=== PATIENT | male | born 1955 | race Caucasian/White ===

== ENCOUNTER 2018-03-21 07:13 | Day surgery (SDC) | payer BC ==
[2018-03-20 17:23] LABS: Absolute Lymphocytes (CBC) 1.5 K/uL (0.7-4.9); Absolute Monocytes 0.6 K/uL (0.1-1.3); Absolute Neutrophil 5.7 K/uL (1.8-8.0); Basophils % 0.9 % (0-1.3); Eosinophils % 3.5 % (0-4.4); Lymphocytes % 18.5 % (15.3-44.8); MCH 30.8 pg (27.0-35.0); MCV 90.9 fL (80-100); MPV 8.8 fL (7.6-11.3); Monocytes % 7.8 % (3.3-12.3); RBC Red Blood Cell Count 4.73 M/uL (4.33-5.43)
[2018-03-20 17:40] LABS: Potassium 3.7 mmol/L (3.5-5.1)
--- NOTE | 2018-03-20 17:56 | EKG ---
Test Date: 2018-03-20 Test Time: 16:57:07 Automobile Engine Assembler: ESTEPHANIA MEASUREMENT RESULTS: Intervals: Rate: 67 WI: 160 QRSD: 100 QT: 420 QTc: 443 [place]: P: 35 WI: 160 QRS: -12 T: 42 INTERPRETIVE STATEMENTS: Normal sinus rhythm Nonspecific T wave abnormality Abnormal ECG Compared to ECG 08/04/2016 15:36:12 T-wave abnormality now present ST (T wave) deviation no longer present Electronically Signed On 03-20-18 17:56:28 CDT by Abdon Browning
[~2018-03-21 07:13] MED LIST: CEFAZOLIN/SWI 1gm 1 GM/10 ML SYR IVP SCH
[2018-03-21] MEDS ORDERED: CEFAZOLIN/SWI 1gm 1 GM/10 ML SYR ONE (08:30)
[2018-03-21] MEDS ORDERED: Ringers Lactate 1,000 ML IV ONE (08:30)
[2018-03-21] MEDS ORDERED: FENTANYL CITR 100 MCG/2 ML ONE ×2 (08:49→09:37)
[2018-03-21] MEDS ORDERED: MIDAZOLAM HCL 2 MG/2 ML INJ ONE (08:49)
[2018-03-21] MEDS ORDERED: PROPOFOL 200 MG/20 ML VIAL IV ONE (08:49)
[2018-03-21] MEDS ORDERED: LIDOCAINE 2% MPF 5 ML VIAL ONE (08:49)
[2018-03-21] MEDS ORDERED: ONDANSETRON HCL 40 MG/20 ML VIAL ONE (09:04)
[2018-03-21] MEDS ORDERED: GLYCOPYRROLATE 0.2 MG/ML SYR ONE (09:30)
--- NOTE | 2018-03-21 10:01 | P.BOP ---
Preoperative diagnosis: tender Perineal subcutaneous mass Postoperative diagnosis: same plus perineal abscess Primary procedure: 1. Excisional biosy of tender Perineal subcutaneous mass Secondary procedure: 2. drainage of complex perineal abscess [id number] Estimated blood loss: <10cc Specimen: cyst and abscess Findings: complex perineal abscess [id number] wit multiple loculation tunneling anterior Anesthesia: General Complications: None Drain(s): Other Transferred to: Recovery Room Condition: Good
[2018-03-21] MEDS ORDERED: CODEINE 30MG/APAP 300MG TAB ONE (11:03)
[2018-03-21 13:18] VITALS: BP 133/77; TEMP 97; O2SAT 97
--- NOTE | 2018-03-21 14:27 | OP ---
Date of Procedure: 03/21/2018 Surgeon: Tony Araogn MD Preoperative Diagnosis: Tender perianal subcutaneous mass. Postoperative Diagnoses: Tender perianal subcutaneous mass, perianal abscess. Procedures: 1.Excisional biopsy of tender perineal subcutaneous mass. 2.Drainage of complex perineal abscess, 8 x 4 x 2 cm. Specimen: Cyst with abscess. Findings: The patient had a complex perineal abscess about 8 x 4 x 2 cm with multiple loculations, t unneled anterior to the right of the base of the scrotum, although does not go inside the scrotum. Anesthesia: General plus local. Indications: This is a case of a male, who came to us with perineal tenderness and the mass. It has drained in the past, not any more. It is tender, it can barely be seen. It is palpated. Benefits, alternatives, and risks of excision were fully explained, which include, but are not limited to infe ction, bleeding, damage to adjacent structures, anesthesia complication, [place], even . He also und erstands this may not relieve any symptoms. He might need more than one surgical intervention. I di scussed the case with his plaster lather this morning from [facility], who gave us clearance to this procedur e, although this patient has a pending angiogram in next few weeks that it should be done. The patie nt understood. Description Of Procedure: The patient was brought to the operating room. The area of concern was ma rked by me and the patient. The patient was placed in supine position. Anesthesia was done without complication. The perineal area was prepped and draped in a sterile fashion after putting him in lit hotomy position. An incision was made over the area of concern. Immediately we noticed the patient has a cystic mass in that area with an underlying abscess. The mass was excised that led us into an abscess cavity that tracked posteriorly, but it does not go into the rectum or near the anus, go ante riorly into the base of the scrotum on the right side, but does not penetrate the scrotum. Multiple loculations were explored and opened. Cultures were obtained. Irrigation was done and then the area was packed with quarter of an inch Nu Gauze. The patient tolerated the procedure well. Sponge coun t and instrument counts were correct. Local anesthetic was applied over the area. The patient sent to recovery in stable condition. HM/MODL Voice ID: [id number] Report ID: [id number]
--- NOTE | 2018-03-21 14:30 | DS ---
Date of Discharge: 03/21/2018 Diagnosis: Tender perineal subcutaneous mass. Procedure: Excisional biopsy of tender perineal subcutaneous mass and drainage of complex perineal a bscess. Disposition: Home. Activity: As tolerated. No lifting. The patient advises home health agency for Nu Gauze packing qu arter of an inch daily follow in my office in 1 week. Call for appointment on [phone]. Medications: See orders. TREY/BONNIE Voice ID: [id number] Report ID: [id number]
== END 2018-03-21 11:30 | disposition home health service (06) ==
LOC: OR 07:13
PROVIDERS: ATTEND Surgery
PROC: 0J9B0ZZ Drainage of Perineum Subcutaneous Tissue and Fascia, Open Approach (ICD-10-PCS; 2018-03-21)
PROC: 0WBMXZX Excision of Male Perineum, External Approach, Diagnostic (ICD-10-PCS; principal; 2018-03-21 08:30)
DX: L02.215 Cutaneous abscess of perineum (principal); I10 Essential (primary) hypertension; E78.00 Pure hypercholesterolemia, unspecified; F17.210 Nicotine dependence, cigarettes, uncomplicated; L72.0 Epidermal cyst
CPT/HCPCS: 36415; 80048; 85025; 87070; 87075; 87205; 88304; 88305; 93005; J0690; J2250; J2405; J3010

== ENCOUNTER 2019-01-30 08:39 | Day surgery (SDC) | payer BC ==
--- OUTSIDE RECORDS SUMMARY | 2019-01-30 08:41 | XMS REPORT ---
:1955 Author Organization [facility] Address [address] [place] [address] Dr. Reynolds [address] [place] [id number] Care Team Providers Name Role Phone Unavailable Unavailable Unavailable Problems This patient has no known problems. Allergies, Adverse Reactions, Alerts This patient has no known allergies or adverse reactions. Medications This patient has no known medications.
--- OUTSIDE RECORDS SUMMARY | 2019-01-30 08:41 | XMS REPORT ---
:1955 Author Organization [employer] Care Team Providers Name Role Phone Randall Galicia Provider Role Unavailable Allergies, Adverse Reactions, Alerts Substance Reaction Event Type N.K.D.A. Info Not Available Non Drug Allergy Problems Problem Type Condition Code Onset Dates Condition Status Problem Pain of joint of left ankle and M25.572 Active foot Problem Pain, joint, shoulder, left M25.512 Active Problem Post-traumatic osteoarthritis of M19.172 Active left ankle Assessment Post-traumatic osteoarthritis of M19.172 Active left ankle Assessment Pain of joint of left ankle and M25.572 Active foot Medications Medication Code Code Instructions Start End Status Dosage System Date Date Metoprolol [facility] 27576458966 25 MG Oral Active (Prior Tartrate Auth: Rx Ref#:[id number]) Tramadol-Acetamin [facility] 50774419027 37.5-325 MG Active (Schedule ophen Oral IV Drug) (Prior Auth: Rx Ref#:[id number]) Chantix ND 46488649249 1 MG Oral Active (Prior Auth: Rx Ref#:[id number]) Gabapentin [facility] 74427659514 300 MG Oral Active (Prior Auth: Rx Ref#:0000 [id number]) Aspirin ND 98392607387 81 MG Oral Active (Prior Auth: Rx Ref#:0000 [id number]) Carvedilol [facility] 37530979849 6.25 MG Oral Active (Prior Auth: Rx Ref#:0000 [id number]) ProAir HFA [facility] 27473860632 108 (90 Base) Active (Prior MCG/ACT Auth: Rx Inhalation Ref#:0000 [id number]) Sulfamethoxazole- [facility] 58353010818 800-160 MG Oral Active (Prior Trimethoprim Auth: Rx Ref#:[id number]) Nitroglycerin ND 42021737800 0.4 MG Active (Prior Sublingual Auth: Rx Ref#:[id number]) Trelegy Ellipta [facility] 31960757278 100-62.5-25 Active (Prior MCG/INH Auth: Rx Inhalation Ref#:0000 [id number]) Spiriva ND 99546823136 18 MCG Active (Prior HandiHaler Inhalation Auth: Rx Ref#:0000 [id number]) Atorvastatin [facility] 78424099753 40 MG Oral Active (Prior Calcium Auth: Rx Ref#:[id number]) Brilinta ND 33868136649 90 MG Oral Active (Prior Auth: Rx Ref#:0000 [id number]) Losartan [facility] 03724857450 50 MG Oral Active (Prior Potassium Auth: Rx Ref#:0000 [id number]) Results No Known Results Summary Purpose [employer] Submission
[2019-01-30] MEDS ORDERED: Ringers Lactate 1,000 ML IV ONE (09:06)
[2019-01-30] MEDS ORDERED: CEFAZOLIN/SWI 1gm 1 GM/10 ML SYR ONE (09:06)
[2019-01-30 09:13] LABS: Absolute Lymphocytes (CBC) 1.4 K/uL (0.7-4.9); Absolute Monocytes 0.7 K/uL (0.1-1.3); Absolute Neutrophil 6.7 K/uL (1.8-8.0); Basophils % 1.3 % (0-1.3); Eosinophils % 2.2 % (0-4.4); Hematocrit 39.6 % (39.6-49.0); Lymphocytes % 15.3 % (15.3-44.8); MPV 8.2 fL (7.6-11.3); Monocytes % 7.2 % (3.3-12.3); RBC Red Blood Cell Count 4.46 M/uL (4.33-5.43)
[2019-01-30 09:33] LABS: Potassium 4.1 mmol/L (3.5-5.1)
[2019-01-30] MEDS ORDERED: MIDAZOLAM HCL 2 MG/2 ML INJ ONE (09:52)
[2019-01-30] MEDS ORDERED: FENTANYL CITR 100 MCG/2 ML ONE (09:52)
[2019-01-30] MEDS ORDERED: LIDOCAINE 2% MPF 5 ML VIAL ONE (09:52)
[2019-01-30] MEDS ORDERED: ONDANSETRON 4 MG/2 ML VIAL ONE (09:52)
[2019-01-30] MEDS ORDERED: PROPOFOL 200 MG/20 ML VIAL IV ONE (09:52)
--- NOTE | 2019-01-30 10:01 | RAD REPORT ---
EXAM DESCRIPTION: RAD - Chest Pa And Lat (2 Views) - 01/30/2019 9:34 am CLINICAL HISTORY: preop Chest pain. COMPARISON: Abdomen 1 View (KUB) dated 02/02/2016; Abdomen 1 View (KUB) dated 01/17/2016; Abdomen 1 Vie w (KUB) dated 01/15/2016; ABDOMEN 1 VIEW KUB dated 11/20/2012; Outpt Chest Pa/Lat (2 Views) dated 2015 FINDINGS: Emphysematous changes are present throughout the lungs. The heart is normal in size. No di splaced fractures. IMPRESSION: Advanced COPD.
[2019-01-30] MEDS: BUPIVACAINE 0.5% PF 10 ML VIAL ONE ×2 (10:22→10:27)
--- NOTE | 2019-01-30 10:53 | P.BOP ---
Preoperative diagnosis: perineal abscess, on anticoagulation for heart disease Postoperative diagnosis: same Primary procedure: Incision and drainage of complex perineal abscess 6x4 cm Estimated blood loss: <10cc Findings: abscess Anesthesia: General Complications: None Transferred to: Recovery Room Condition: Good
--- NOTE | 2019-01-30 11:23 | EKG ---
Test Date: 2019-01-30 Test Time: 08:55:13 [facility] Director: DONY MEASUREMENT RESULTS: Intervals: Rate: 64 RI: 170 QRSD: 102 QT: 422 QTc: 435 [place]: P: 52 RI: 170 QRS: 33 T: 51 INTERPRETIVE STATEMENTS: Normal sinus rhythm Incomplete right bundle branch block Borderline ECG Compared to ECG 03/20/2018 16:57:07 Incomplete right bundle-branch block now present T-wave abnormality no longer present Electronically Signed On 01-30-19 11:22:40 CDT by Avery Oakley
[2019-01-30 11:46] VITALS: BP 109/69; TEMP 97.5; O2SAT 97
--- NOTE | 2019-01-31 03:55 | OP ---
Date of Procedure: 01/30/2019 Surgeon: Tony Aragon MD Preoprative Diagnosis: Perineal abscess. The patient has a history of heart disease and on current anticoagulation. Postoperative Diagnosis: Perineal abscess. The patient has a history of heart disease and on curren t anticoagulation. Procedure: Incision and drainage of complex perineal abscess of about 6 x 4 cm. Anesthesia: General plus local. Findings: A large complex abscess with multiple loculations present. Indications: This is a case of a 63-year-old patient, comes to us with a rapidly expanding abscess o n the perineal region. He had another 1 in the past several years ago, a little bit away from this a cesar. This new one in 2 days doubled in size. I discussed the case with the internal corrosion specialist. He does n ot want me to stop the anticoagulation other than the aspirin and probably 1 dose of the other antico agulation. That make this case limit, since I anticipate the patient with blood thinners, but at the same time, he needs the incision and drainage because in the past he did not do this on time and it developed into a large cavity. He understands the risks and we understand the risks. Molding Process Technician mary kay saravia explained to me the reason for this. He had an [place] about a year ago with stent placement, and e jone though 6 months is okay just to off his anticoagulation, he preferred just to keep it going. He understands the limitations of this surgery, which include obviously more bleeding than usual. Benef its, alternatives, and risks fully explained including, but not limited to infection, bleeding, damag e to adjacent structures, anesthesia complication, recurrence, [place], and even . He also understan ds this may not relieve in any symptoms, he might need more than 1 surgical intervention. He underst ood, signed a consent. Description Of Procedure: The patient was brought to the operating room, placed in supine position. Anesthesia was done without complication. The patient was placed in lithotomy position with proper protection. Perineal area was prepped and draped in sterile fashion. An incision was made over the area of the abscess and a discharge was obtained with purulent discharge for culture. All the locula tions were explored and opened. Profuse irrigation was done over that area. Absolute hemostasis was obtained and then the area was packed with wet-to-dry dressing. The patient tolerated the procedure well. The patient was sent to recovery room in stable condition. Disposition: Home. Activity: As tolerated. No heavy lifting. Followup: Follow up in my office in 1 week. Call for appointment, [phone]. The patient will do we t-to-dry dressing daily. The patient's states she feels comfortable doing the dressing changes. We will see the patient in 1 week. Medications: See orders. TREY/BONNIE Voice ID: [id number] Report ID: [id number]
== END 2019-01-30 11:52 | disposition home or self-care (01) ==
LOC: OR 08:39
PROVIDERS: ATTEND Surgery
PROC: 0J9B0ZZ Drainage of Perineum Subcutaneous Tissue and Fascia, Open Approach (ICD-10-PCS; principal; 2019-01-30 15:30)
DX: L02.215 Cutaneous abscess of perineum (principal); L03.315 Cellulitis of perineum; E78.00 Pure hypercholesterolemia, unspecified; I11.9 Hypertensive heart disease without heart failure; I25.2 Old myocardial infarction; K21.9 Gastro-esophageal reflux disease without esophagitis; F17.210 Nicotine dependence, cigarettes, uncomplicated; Z79.01 Long term (current) use of anticoagulants; Z79.899 Other long term (current) drug therapy; Z95.5 Presence of coronary angioplasty implant and graft
CPT/HCPCS: 36415; 71046; 80048; 85025; 93005; J0690; J2250; J2405; J2704; J3010

== ENCOUNTER 2022-04-05 07:48 | Emergency (ER) | payer BC, OTHER ==
--- OUTSIDE RECORDS SUMMARY | 2022-04-05 07:53 | XMS REPORT | Continuity of Care Document ---
:1955 Author Organization [facility] t Address [address] [place] [address] Care Team Providers Name Role Phone Viki V, John Primary Care Physician REID MATOS Attending Clinician Unavailable Ronan Simmons Attending Clinician Unavailable REID MATOS Attending Clinician Unavailable COOPER RUGGIERO Attending Clinician Unavailable Kevan BRAMBILA, Sendil K.H. Attending Clinician Kalyani Serrano MA Attending Clinician Unavailable Dilcia Mathur MD Attending Clinician Physician, No Primary or Family Admitting Clinician Unavaila ble UNDEFINED Admitting Clinician Unavailable Payers Payer Name Policy Type Policy Number Effective Date Expiration Date S cuong [facility] [id number] 2021 00:00:00 [facility] [id number] 2021 MEDICARE GOLD PPO 00:00:00 CSNP Problems Condition Condition Condition Status Onset Resolution Last Treating Co mments Source Name Details Category Date Date Treatment Clinician Date Chronic Chronic Disease Active [facility] pain of pain of 3-18 Health left ankle left ankle 00:00: 00 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 3-18 Health fusion fusion 00:00: 00 History of History of Disease Active U nivers nonmelanom nonmelanom 6-29 it y of a skin a skin 00:00: [place] cancer cancer 00 Medical Branch STEMI (ST STEMI (ST Disease Active Uni vers elevation elevation 8-22 [place] of myocardial myocardial [place] infarction infarction 00 Me dical ) ) Branch Acute NC, Acute NC, Disease Active Uni vers inferior inferior 8-21 ity of wall wall 00:00: [place] 00 Medical Branch Screening Screening Disease Active Overview: Univers for for 05-04 Formattin ity of colorectal colorectal 00:00: g of this [place] cancer cancer 00 note Medical might be Branch different from the original. 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[place] 00 Medical syndrome) syndrome) Bran ch Thoracic Thoracic Disease Active Unive rs aortic aortic 04-28 ity of aneurysm aneurysm 00:00: [place] without without 00 Medical rupture rupture Branch Tobacco Tobacco Disease Active Univers abuse abuse 04-28 ity of 00:00: [place] 00 Medical Branch Dyslipidem Dyslipidem Disease Active U yesenia ia ia 04-28 ity of 00:00: [place] 00 Medical Branch Pain of Pain of Diagnosis Active Commo n joint of joint of [facility] left ankle left ankle - [facility] and foot and foot [facility] Pain, Pain, Problem Active Common joint, joint, [place] shoulder, shoulder, - [facility] left left [facility] 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 [facility] osteoarthr osteoarthr - [facility] itis of itis of St left ankle left ankle [facility] Allergies, Adverse Reactions, Alerts Allergy Allergy Status Severity Reaction(s) Onset Inactive Treating Comm ents Source Name Type Date Date Clinician Spironol Propensi Active Other - See gynecoma s Univers actone ty to comments 2- tia ity of adverse 00:00: [place] reaction 00 Medical s Branch SPIRONOL DRUG Active Other-Cmnt Univ ers ACTONE INGREDI 2-03 ity of 00:00: [place] 00 Medical Branch No Known DA Active U 2018-08 [facility] Allergie 10-20 [place] [facility] 00:[facility] No Known DA Active U 2018-08 [facility] Allergie 10-20 [place] 00:[facility] 00 [facility] l ROPINIRO DRUG Active High Other-Cmnt 2017-08 Univ ers LE INGREDI 09-22 ity of 00:00: [place] 00 Medical Branch Ropiniro Propensi Active Other - See 2017-08 U nivers le ty to comments 09-22 ity of adverse 00:00: [place] reaction 00 Medical s Branch VARENICL DRUG Active Unknown-Cmnt 2017-08 Un m[facility] INE INGREDI 0-08 ity of 00:00: [place] 00 Medical Branch Varenicl Propensi Active Unknown - 2017-08 Aggressio Univers ine ty to See comments 0-08 n ity of adverse 00:00: Irritable [place] reaction 00 Medical s Branch Social History Social Habit Start Date Stop Date Quantity Comments Source History of tobacco Smokes tobacco [facility] use daily History [facility] Alcohol Std Drinks History [facility] Alcohol Binge History [facility] Alcohol Comment Exposure to 2022-03-08 2022-03-18 Not sure [facility] SARS-CoV-2 (event) 00:00:00 14:44:00 Alcohol intake 2021-12-10 2021-12-10 Lifetime [facility] 00:00:00 00:00:00 non-drinker (finding) Tobacco use and 2021-11-12 2021-11-12 Smokeless [facility] exposure 00:00:00 00:00:00 tobacco non-user History SDOH 2021-11-12 2021-11-12 1 [facility] Alcohol Frequency 00:00:00 00:00:00 Cigarette 2021-11-12 2021-11-12 [facility] pack-years 00:00:00 00:00:00 Cigarettes smoked 2015-10-02 2015-10-02 Univers ity of current (pack per 00:00:00 00:00:00 [facility] ) - Reported Branch Sex Ass[birth year] At [birth year] [facility] 00:[facility]:00 00:00:00 Smoking Status Start Date Stop Date Source Smokes tobacco daily 2021-11-12 00:00:00 [facility] Medications Ordered Filled Start Stop Current Ordering Indication Dosage Frequency Signature Comments Components Source Medication Medication Date Date Medication? Clinician (SIG) Name Name meloxicam 2021- Yes [id number] 15mg QD Take 1 UT (Mobic) 15 7-13 10-12 tablet (15 He alth MG tablet 00:00: 04:59 mg total) 00 :00 by mouth 1 (one) time each day. meloxicam 2021- Yes [id number] 15mg QD Take 1 UT (Mobic) 15 7-13 10-12 tablet (15 He alth MG tablet 00:00: 04:59 mg total) 00 :00 by mouth 1 (one) time each day. sulfamethox 2021- Yes [id number] 1{tbl} Q.5D Take 1 UT azole-trime 7-13 07-24 tablet by He alth thoprim 00:00: 04:59 mouth in (Bactrim 00 :00 the DS) 800-160 morning MG tablet and 1 tablet in the evening. Do all this for 10 days. sulfamethox 2021- Yes [id number] 1{tbl} Q.5D Take 1 UT azole-trime 7-13 07-24 tablet by He alth thoprim 00:00: 04:59 mouth in (Bactrim 00 :00 the DS) 800-160 morning MG tablet and 1 tablet in the evening. Do all this for 10 days. traMADol Yes [id number] 100mg Q6H Take 2 UT (Ultram) 50 5-27 tablets Healt h MG tablet 00:00: (100 mg 00 total) by mouth every 6 (six) hours if needed for severe pain. traMADol Yes [id number] 100mg Q6H Take 2 UT (Ultram) 50 5-27 tablets Healt h MG tablet 00:00: (100 mg 00 total) by mouth every 6 (six) hours if needed for severe pain. traMADol Yes [id number] 100mg Q6H Take 2 UT (Ultram) 50 5-27 tablets Healt h MG tablet 00:00: (100 mg 00 total) by mouth every 6 (six) hours if needed for severe pain. traMADol 2022-0 Yes [id number] 100mg Q6H Take 2 UT (Ultram) 50 5-04 tablets Healt h MG tablet 00:00: (100 mg 00 total) by mouth every 6 (six) hours if needed for severe pain. ondansetron 2022-0 Yes [id number] 8mg Take 1 UT (Zofran) 8 5-04 tablet (8 Heal th MG tablet 00:00: mg total) 00 by mouth every 8 (eight) hours if needed for nausea. traMADol 2022-0 Yes [id number] 100mg Q6H Take 2 UT (Ultram) 50 5-04 tablets Healt h MG tablet 00:00: (100 mg 00 total) by mouth every 6 (six) hours if needed for severe pain. ondansetron 2021-0 Yes [id number] 8mg Take 1 UT (Zofran) 8 5-04 tablet (8 Heal th MG tablet 00:00: mg total) 00 by mouth every 8 (eight) hours if needed for nausea. traMADol 2-0 Yes [id number] 100mg Q6H Take 2 UT (Ultram) 50 5-04 tablets Healt h MG tablet 00:00: (100 mg 00 total) by mouth every 6 (six) hours if needed for severe pain. ondansetron 2-0 Yes [id number] 8mg Take 1 UT (Zofran) 8 5-04 tablet (8 Heal th MG tablet 00:00: mg total) 00 by mouth every 8 (eight) hours if needed for nausea. traMADol 2022-0 Yes [id number] 100mg Q6H Take 2 UT (Ultram) 50 5-04 tablets Healt h MG tablet 00:00: (100 mg 00 total) by mouth every 6 (six) hours if needed for severe pain. ondansetron 2022-0 Yes [id number] 8mg Take 1 UT (Zofran) 8 5-04 tablet (8 Heal th MG tablet 00:00: mg total) 00 by mouth every 8 (eight) hours if needed for nausea. gabapentin 2022-0 Yes 300mg Take 300 Un mack (NEURONTIN) 4-06 mg by ity of 300 mg 13:01: mouth [place] capsule 34 daily. Medical Branch lansoprazol Yes 15mg Take 15 mg Univers e 4-06 by mouth 2 ity of (PREVACID) 13:01: (two) [place] 15 mg 34 times Medical capsule daily. Branch ascorbic 0 Yes 500mg Take 500 Univ ers acid 4-06 mg by ity of (VITAMIN C) 13:01: mouth [place] 500 mg 34 daily. Medical tablet Branch Docusate Yes [id number] 100mg Take 100 Univers Sodium 100 4-06 mg by ity of mg tablet 13:01: mouth [place] 34 daily. Medical Branch dutasteride Yes .5mg Take 0.5 Un mack 0.5 mg 4-06 mg by ity of capsule 13:01: mouth [place] 34 daily. Medical Branch levocetiriz Yes 5mg Take 5 mg U nivers ine 5 mg 4-06 by mouth ity of tablet 13:01: every [place] 34 evening. Medical Branch montelukast Yes 10mg Take 10 mg Univers 10 mg 4-06 by mouth. ity of tablet 13:01: [place] 34 Medical Branch insulin Yes 20U inject 20 Unive rs degludec 4-06 Units ity of 200 unit/mL 13:01: under the [place] (3 mL) InPn 34 skin. Medical Inject 20 Branch Units Daily gabapentin Yes 300mg Take 300 Un mack (NEURONTIN) 4-06 mg by ity of 300 mg 13:01: mouth [place] capsule 34 daily. Medical Branch lansoprazol Yes 15mg Take 15 mg Univers e 4-06 by mouth 2 ity of (PREVACID) 13:01: (two) [place] 15 mg 34 times Medical capsule daily. Branch ascorbic Yes 500mg Take 500 Univ ers acid 4-06 mg by ity of (VITAMIN C) 13:01: mouth [place] 500 mg 34 daily. Medical tablet Branch Docusate Yes [id number] 100mg Take 100 Univers Sodium 100 4-06 mg by ity of mg tablet 13:01: mouth [place] 34 daily. Medical Branch dutasteride 0 Yes .5mg Take 0.5 Un mack 0.5 mg 4-06 mg by ity of capsule 13:01: mouth [place] 34 daily. Medical Branch levocetiriz 0 Yes 5mg Take 5 mg U nivers ine 5 mg 4-06 by mouth ity of tablet 13:01: every [place] 34 evening. Medical Branch montelukast 0 Yes 10mg Take 10 mg Univers 10 mg 4-06 by mouth. ity of tablet 13:01: [place] 34 Medical Branch insulin 2021-0 Yes 20U inject 20 Unive rs degludec 4-06 Units ity of 200 unit/mL 13:01: [place] the [place] ([facility] Inject 20 Branch Units Daily ezetimibe 0 Yes [id number] 10mg Take 1 U nivers 10 mg 4-06 tablet by ity of tablet 00:00: mouth [place] 00 daily. Medical Branch atorvastati Yes [id number] 80mg Take 1 Univers n 80 mg 4-06 tablet by ity of tablet 00:00: mouth [place] 00 daily. Medical Branch carvediloL 0 Yes [id number] 25mg Take 1 Univers 25 mg 4-06 tablet by ity of tablet 00:00: mouth 2 (two) Medical times Branch daily. NIFEdipine 2021-0 Yes [id number] 30mg Take 1 Univers XL 30 mg 24 4-06 tablet by ity of hr tablet 00:00: mouth 2 (two) Medical times Branch daily. ezetimibe 0 Yes [id number] 10mg Take 1 U nivers 10 mg 4-06 tablet by ity of tablet 00:00: mouth [place] 00 daily. Medical Branch atorvastati 0 Yes [id number] 80mg Take 1 Univers n 80 mg 4-06 tablet by ity of tablet 00:00: mouth [place] 00 daily. Medical Branch carvediloL 0 Yes [id number] 25mg Take 1 Univers 25 mg 4-06 tablet by ity of tablet 00:00: mouth 2 (two) Medical times Branch daily. NIFEdipine 2021-0 Yes [id number] 30mg Take 1 Univers XL 30 mg 24 4-06 tablet by ity of hr tablet 00:00: mouth 2 (two) Medical times Branch daily. NIFEdipine 2021-0 2022- No 30mg Take 30 mg Univers XL 30 mg 24 3- 04-06 by mouth ity of hr tablet 00:00: 00:00 daily. [place] 00 :00 [facility] aspirin 81 2021-0 Yes (Prior UT MG chewable 3-18 Auth: Rx Heal th tablet 09:54: Ref#:[id number]) Fluticasone 2021-0 Yes (Prior UT -Umeclidin- 3-18 Auth: Rx Heal th Vilant 09:54: Ref#:[id number] ([facility] [id number]) Ellipta) 100-62.5-25 MCG/INH aerosol powder lansoprazol 2-0 Yes 15mg Take 15 mg UT e 3-18 by mouth. Health (Prevacid) 09:54: [address] 58 capsule montelukast 2021-0 Yes 10mg Take 10 mg UT (Singulair) 3-18 by mouth. Hea lth 10 MG 09:54: tablet 58 aspirin 81 2021-0 Yes (Prior UT MG chewable 3-18 Auth: Rx Heal th tablet 09:54: Ref#:[id number]) Fluticasone 2021-0 Yes (Prior UT -Umeclidin- 3-18 Auth: Rx Heal th Vilant 09:54: Ref#:[id number] ([facility] [id number]) Ellipta) 100-62.5-25 MCG/INH aerosol powder lansoprazol 2021-0 Yes 15mg Take 15 mg UT e 3-18 by mouth. Health (Prevacid) 09:54: [address] 58 capsule montelukast 2021-0 Yes 10mg Take 10 mg UT (Singulair) 3-18 by mouth. Hea lth 10 MG 09:54: tablet 58 aspirin 81 2021-0 Yes (Prior UT MG chewable 3-18 Auth: Rx Heal th tablet 09:54: Ref#:[id number]) Fluticasone 2021-0 Yes (Prior UT -Umeclidin- 3-18 Auth: Rx Heal th Vilant 09:54: Ref#:[id number] ([facility] 58 [id number]) Ellipta) 100-62.5-25 MCG/INH aerosol powder lansoprazol 2-0 Yes 15mg Take 15 mg UT e 3-18 by mouth. Health (Prevacid) 09:54: [address] 58 capsule montelukast 2022-0 Yes 10mg Take 10 mg UT (Singulair) 3-18 by mouth. Hea lth 10 MG 09:54: tablet 58 aspirin 81 2-0 Yes (Prior UT MG chewable 3-18 Auth: Rx Heal th tablet 09:54: Ref#:[id number]) Fluticasone 2022-0 Yes (Prior UT -Umeclidin- 3-18 Auth: Rx Heal th Vilant 09:54: Ref#:[id number] ([facility] 58 [id number]) Ellipta) 100-62.5-25 MCG/INH aerosol powder lansoprazol 2022-0 Yes 15mg Take 15 mg UT e 3-18 by mouth. Health (Prevacid) 09:54: [address] 58 capsule montelukast 2-0 Yes 10mg Take 10 mg UT (Singulair) 3-18 by mouth. Hea lth 10 MG 09:54: tablet 58 aspirin 81 2021-0 Yes (Prior UT MG chewable 3-18 Auth: Rx Heal th tablet 09:54: Ref#:[id number]) Fluticasone 2-0 Yes (Prior UT -Umeclidin- 3-18 Auth: Rx Heal th Vilant 09:54: [facility][id number] [facility] [id number][facility] Ellipta) 100-62.5-25 MCG/INH aerosol powder lansoprazol 2-0 Yes 15mg Take 15 mg UT e 3-18 by mouth. Health (Prevacid) 09:54: [address] 58 capsule montelukast 2022-0 Yes 10mg Take 10 mg UT (Singulair) 3-18 by mouth. Hea lth 10 MG 09:54: tablet 58 aspirin 81 2021-0 Yes (Prior UT MG chewable 3-18 Auth: Rx Heal th tablet 09:54: Ref#:[id number]) Fluticasone 2022-0 Yes (Prior UT -Umeclidin- 3-18 Auth: Rx Heal th Vilant 09:54: Ref#:[id number] ([facility] [id number]) Ellipta) 100-62.5-25 MCG/INH aerosol powder lansoprazol 2022-0 Yes 15mg Take 15 mg UT e 3-18 by mouth. Health (Prevacid) 09:54: [address] 58 capsule montelukast Yes 10mg Take 10 mg UT (Singulair) 3-18 by mouth. Hea lth 10 MG 09:54: tablet 58 aspirin 81 Yes (Prior UT MG chewable 3-18 Auth: Rx Heal th tablet 09:54: Ref#:[id number]) Fluticasone Yes (Prior UT -Umeclidin- 3-18 Auth: Rx Heal th Vilant 09:54: Ref#:[id number] ([facility] [id number]) Ellipta) 100-62.5-25 MCG/INH aerosol powder lansoprazol Yes 15mg Take 15 mg UT e 3-18 by mouth. Health (Prevacid) 09:54: [address] 58 capsule montelukast Yes 10mg Take 10 mg UT (Singulair) 3-18 by mouth. Hea lth 10 MG 09:54: tablet 58 Tresiba Yes INJECT 55 UT FlexTouch 3-11 UNITS Health 200 UNIT/ML 00:00: SUBCUTANEO injection 00 USLY ONCE DAILY AT THE SAME TIME EACH DAY. Tresiba Yes INJECT 55 UT FlexTouch 3-11 UNITS Health 200 UNIT/ML 00:00: SUBCUTANEO injection 00 USLY ONCE DAILY AT THE SAME TIME EACH DAY. Tresiba Yes INJECT 55 UT FlexTouch 3-11 UNITS Health 200 UNIT/ML 00:00: SUBCUTANEO injection 00 USLY ONCE DAILY AT THE SAME TIME EACH DAY. Tresiba Yes INJECT 55 UT FlexTouch 3-11 UNITS Health 200 UNIT/ML 00:00: SUBCUTANEO injection 00 USLY ONCE DAILY AT THE SAME TIME EACH DAY. Tresiba Yes INJECT 55 UT FlexTouch 3-11 UNITS Health 200 UNIT/ML 00:00: SUBCUTANEO injection 00 USLY ONCE DAILY AT THE SAME TIME EACH DAY. Tresiba Yes INJECT 55 UT FlexTouch 3-11 UNITS Health 200 UNIT/ML 00:00: SUBCUTANEO injection 00 USLY ONCE DAILY AT THE SAME TIME EACH DAY. Tresiba 2021-0 Yes INJECT 55 UT FlexTouch 3-11 UNITS Health 200 UNIT/ML 00:00: SUBCUTANEO injection 00 USLY ONCE DAILY AT THE SAME TIME EACH DAY. losartan 2021-0 Yes UT (Cozaar) 50 1-06 Health MG tablet 00:00: 00 losartan 2021-0 Yes UT (Cozaar) 50 1-06 Health MG tablet 00:00: 00 losartan 2021-0 Yes UT (Cozaar) 50 1-06 Health MG tablet 00:00: 00 losartan 2021-0 Yes UT (Cozaar) 50 1-06 Health MG tablet 00:00: 00 losartan 2021-0 Yes UT (Cozaar) 50 1-06 Health MG tablet 00:00: 00 losartan 2021-0 Yes UT (Cozaar) 50 1-06 Health MG tablet 00:00: 00 losartan 2021-0 Yes UT (Cozaar) 50 1-06 Health MG tablet 00:00: 00 losartan 50 2021-0 Yes 50mg Take 50 mg Univers mg tablet -06 by mouth 2 ity of 00:00: (two) [place] 00 times Medical daily. [place] losartan 50 2021-0 Yes 50mg Take 50 mg Univers mg tablet -06 by mouth 2 ity of 00:00: (two) [place] 00 times Medical daily. Branch gabapentin 2021-0 Yes TAKE ONE UT (Neurontin) 1-04 (1) Health 300 MG 00:00: CAPSULE(S) capsule 00 BY MOUTH TWICE A DAY AT 12 HOUR INTERVALS. gabapentin 2021-0 Yes TAKE ONE UT (Neurontin) 1-04 (1) Health 300 MG 00:00: CAPSULE(S) capsule 00 BY MOUTH TWICE A DAY AT 12 HOUR INTERVALS. gabapentin 2021-0 Yes TAKE ONE UT (Neurontin) 1-04 (1) Health 300 MG 00:00: CAPSULE(S) capsule 00 BY MOUTH TWICE A DAY AT 12 HOUR INTERVALS. gabapentin 2021-0 Yes TAKE ONE UT (Neurontin) 1-04 (1) Health 300 MG 00:00: CAPSULE(S) capsule 00 BY MOUTH TWICE A DAY AT 12 HOUR INTERVALS. gabapentin 2021-0 Yes TAKE ONE UT (Neurontin) 1-04 (1) Health 300 MG 00:00: CAPSULE(S) capsule 00 BY MOUTH TWICE A DAY AT 12 HOUR INTERVALS. gabapentin 0 Yes TAKE ONE UT (Neurontin) 08-31 (1) Health 300 MG 00:00: CAPSULE(S) capsule 00 BY MOUTH TWICE A DAY AT 12 HOUR INTERVALS. gabapentin 0 Yes TAKE ONE UT (Neurontin) 08-31 (1) Health 300 MG 00:00: CAPSULE(S) capsule 00 BY MOUTH TWICE A DAY AT 12 HOUR INTERVALS. atorvastati 0 Yes UT n (Lipitor) 1- Health 80 MG 00:00: tablet 00 carvedilol 0 Yes UT (Coreg) 25 - Health MG tablet 00:00: 00 atorvastati 0 Yes UT n (Lipitor) 08-28 Health 80 MG 00:00: tablet 00 carvedilol 0 Yes UT (Coreg) 25 - Health MG tablet 00:00: 00 atorvastati 2021-0 Yes UT n (Lipitor) 1- Health 80 MG 00:00: tablet 00 carvedilol 2021-0 Yes UT (Coreg) 25 1- Health MG tablet 00:00: 00 atorvastati 2021-0 Yes UT n (Lipitor) 1- Health 80 MG 00:00: tablet 00 carvedilol 2021-0 Yes UT (Coreg) 25 1- Health MG tablet 00:00: 00 atorvastati 2021-0 Yes UT n (Lipitor) 1- Health 80 MG 00:00: tablet 00 carvedilol 2021-0 Yes UT (Coreg) 25 1- Health MG tablet 00:00: 00 atorvastati 2021-0 Yes UT n (Lipitor) 1- Health 80 MG 00:00: tablet 00 carvedilol 2021-0 Yes UT (Coreg) 25 - Health MG tablet 00:00: 00 atorvastati 2021-0 Yes UT n (Lipitor) - Health 80 MG 00:00: tablet 00 carvedilol 2021-0 Yes UT (Coreg) 25 - Health MG tablet 00:00: 00 atorvastati 2021-0 2022- No 80mg Take 80 mg Univers n 80 mg 08-28 04-06 by mouth ity of tablet 00:00: 00:00 daily. [place] 00 :00 Medical Branch carvediloL 0 2021- No 25mg Take 25 mg Univers 25 mg 08-28 by mouth 2 ity of tablet 00:00: 00:00 (two) [place] 00 :00 times Medical daily. Branch albuterol 0 Yes [id number] 2{puff} Inhale 2 Univers 90 5-16 Puffs ity of mcg/actuati 00:00: every 4 [place] as on inhaler 00 (four) Medical hours as Branch needed for Wheezing or Shortness of Breath. albuterol Yes [id number] 2{puff} Inhale 2 Univers 90 5-16 Puffs ity of mcg/actuati 00:00: every 4 [place] as on inhaler 00 (four) Medical hours as Branch needed for Wheezing or Shortness of Breath. buPROPion Yes [id number] 150mg Take 1 U nivers SR 150 mg 4-20 tablet by ity o f SR tablet 00:00: mouth 2 [place] (two) Medical times Branch daily. buPROPion Yes [id number] 150mg Take 1 U nivers SR 150 mg 4-20 tablet by ity o f SR tablet 00:00: mouth 2 [place] (two) Medical times Branch daily. tamsulosin Yes Take by Univ ers 0.4 mg 24 4-01 mouth ity of hr capsule 13:12: daily. [place] 40 Take 1 Medical capsule Branch half hour after PM meal tamsulosin 0 Yes Take by Univ ers 0.4 mg 24 4-01 mouth ity of hr capsule 13:12: daily. [place] 40 Take 1 Medical capsule Branch half hour after PM meal INCONTROL 2019- Yes USE ONCE Univ ers PEN NEEDLE 0-29 DAILY E ity of 31 gauge x 00:00: 11.9. [place] 11/10" [place] Medical Branch INCONTROL 2019- Yes USE ONCE Univ ers PEN NEEDLE 0-29 DAILY E ity of 31 gauge x 00:00: 11.9. [place] 11/10" [place] Medical Branch tramadol-ac 2019- Yes [id number] 1{tbl} Take 1 Univers etaminophen 6-08 tablet by ity of 37.5-325 mg 00:00: mouth 2 [place] as per tablet (two) Medical times Branch daily as needed for Pain. tramadol-ac Yes [id number] 1{tbl} Take 1 Univers etaminophen 6-08 tablet by ity of 37.5-325 mg 00:00: mouth 2 [place] as per tablet 00 (two) Medical times Branch daily as needed for Pain. nicotine Yes [id number] 1{puff} Inhale 1 Univers (NICOTROL) 2-07 Puff as ity of 10 mg 00:00: needed for [place] inhaler 00 Smoking Medical cessation. Branch nicotine Yes [id number] 1{puff} Inhale 1 Univers (NICOTROL) 2-07 Puff as ity of 10 mg 00:00: needed for [place] inhaler 00 Smoking Medical cessation. Branch fluticasone Yes 1{puff} Inhale 1 Univers -umeclidin- 1-30 Puff ity of vilanter 00:00: daily. [place] (TRELEGY 00 Medical ELLIPTA) Branch 100-62.5-25 mcg DsDv fluticasone Yes 1{puff} Inhale 1 Univers -umeclidin- 1-30 Puff ity of vilanter 00:00: daily. [place] (TRELEGY 00 Medical ELLIPTA) Branch 100-62.5-25 mcg DsDv tiZANidine 2018-08 Yes [id number] 4mg Take 1 U nivers 4 mg 2-31 capsule by ity of capsule 00:00: mouth 3 [place] 00 (three) Medical times Branch daily as needed for Muscle Spasms. tiZANidine 2018-08 Yes [id number] 4mg Take 1 U nivers 4 mg 2-31 capsule by ity of capsule 00:00: mouth 3 [place] 00 (three) Medical times Branch daily as needed for Muscle Spasms. acetaminoph 2018-08 Yes [id number] 1{tbl} Take 1 Univers en-codeine 0-29 tablet by ity of 300-30 mg 00:00: mouth [place] tablet 00 every 6 Medical (six) Branch hours as needed for Pain (scale 4-6). acetaminoph 2018-08 Yes [id number] 1{tbl} Take 1 Univers en-codeine 0-29 tablet by ity of 300-30 mg 00:00: mouth [place] tablet 00 every 6 Medical (six) Branch hours as needed for Pain (scale 4-6). hydrocodone 2018- Yes [id number] 5mL Take 5 mL Univers -chlorpheni 3-06 by mouth ity of ramine 00:00: every 12 [place] (TUSSIONEX 00 (twelve) Medic al PENNKINETIC hours as Bran ch ER) 10-8 needed for mg/5 mL Cough. suspension hydrocodone 0 Yes [id number] 5mL Take 5 mL Univers -chlorpheni 3-06 by mouth ity of ramine 00:00: every 12 [place] (TUSSIONEX 00 (twelve) Medic al PENNKINETIC hours as Bran ch ER) 10-8 needed for mg/5 mL Cough. suspension Diclofenac 2017-08 Yes Apply to Uni vers Sodium 1-26 area(s) 2 ity of (VOLTAREN) 00:00: (two) [place] 1 % gel 00 times Medical daily. Branch Diclofenac 2017-08 Yes Apply to Uni vers Sodium 1-26 area(s) 2 ity of (VOLTAREN) 00:00: (two) [place] 1 % gel 00 times Medical daily. Branch HYDROcodone 2017-08 Yes 1{tbl} Take 1 Un mack -acetaminop 0-08 tablet by ity of hen 10-325 00:00: mouth [place] mg tablet 00 every 6 Medical (six) Branch hours as needed for Pain (scale 4-6). HYDROcodone 2017-08 Yes 1{tbl} Take 1 Un mack -acetaminop 0-08 tablet by ity of hen 10-325 00:00: mouth [place] mg tablet 00 every 6 Medical (six) Branch hours as needed for Pain (scale 4-6). aspirin 81 0 Yes 81mg Take 1 Unive rs mg chewable 8-23 tablet by ity of tablet 00:00: mouth [place] 00 daily. Medical Branch aspirin 81 2017-0 Yes 81mg Take 1 Unive rs mg chewable 8-23 tablet by ity of tablet 00:00: mouth [place] 00 daily. Medical Branch nitroglycer Yes .4mg Place 1 Uni vers in 0.4 mg 8-22 tablet ity of sublingual 00:00: under the [place] tablet 00 tongue Medical every 5 Branch (five) minutes as needed for Chest pain. Maximum of 3 tablets in 15 minutes nitroglycer 2018-[address] 1 Uni vers in 0.4 mg 8-22 tablet ity of sublingual 00:00: under the [place] tablet 00 tongue Medical every 5 Branch (five) minutes as needed for Chest pain. Maximum of 3 tablets in 15 minutes fluticasone Yes 2{spray Use 2 Un mack 50 7-05 } Sprays in ity of mcg/actuati 00:00: each [place] on nasal 00 nostril Medical spray daily. Branch fluticasone Yes 2{spray Use 2 Un mack 50 7-05 } Sprays in ity of mcg/actuati 00:00: each [place] on nasal 00 nostril Medical spray daily. Branch Metoprolol Metoprolol Yes [place] (Prior Common Tartrate Tartrate [place] Auth: Rx S pirit Ref#:[id number] - [facility] [id number]) [facility] Tramadol-Ac Tramadol-Ac Yes [place] (Schedule Common etaminophen etaminophen [place] IV Drug) Ricardo (Prior - [facility] Auth: Rx St Ref#:[id number] [facility] [id number]) [facility] Chantix Chantix Yes [place] (Prior Commo n [place] Auth: Rx Spirit Ref#:[id number] [facility] [id number]) [facility] Gabapentin Gabapentin Yes Randall (Prior Common [place] Auth: Rx Spirit Ref#:[id number] [facility] [id number]) [facility] Aspirin Aspirin Yes Randall (Prior Commo n [place] Auth: Rx Spirit Ref#:[id number] - [facility] [id number]) [facility] Carvedilol Carvedilol Yes Randall (Prior Common [place] Auth: Rx Spirit Ref#:[id number] [facility] [id number]) [facility] ProAir HFA ProAir HFA Yes Randall (Prior Common [place] Auth: Rx Spirit Ref#:[id number] [facility] [id number]) [facility] Sulfamethox Sulfamethox Yes Randall (Prior Common azole-Trime azole-Trime [place] Auth: Rx Spirit thoprim thoprim Ref#:[id number] - [facility] [id number]) [facility] Nitroglycer Nitroglycer Yes Randall (Prior Common in in [place] Auth: Rx Spirit Ref#:[id number] [facility] [id number]) [facility] Trelegy Trelegy Yes Randall (Prior Commo n Ellipta Ellipta [place] Auth: Rx Spi rit Ref#:[id number] - [facility] [id number]) [facility] Spiriva Spiriva Yes Randall (Prior Commo n HandiHaler HandiHaler [place] Auth: Rx Spirit Ref#:[id number] - [facility] [id number]) [facility] Atorvastati Atorvastati Yes Randall (Prior Common n Calcium n Calcium [place] Auth: Rx Spirit Ref#:[id number] - [facility] [id number]) [facility] Brilinta Brilinta Yes Randall (Prior Com mon [place] Auth: Rx Spirit Ref#:[id number] - [facility] [id number]) [facility] Losartan Losartan Yes Randall (Prior Com mon Potassium Potassium [place] Auth: Rx Spirit Ref#:[id number] - [facility] [id number]) [facility] Immunizations Ordered Filled Immunization Date Status Comments Sour e Immunization Name Name SARS-COV-2 COVID-19 2020-09-28 Completed Unive rsity of MODERNA VACCINE 00:00:00 [facility] SARS-COV-2 COVID-19 2020-09-28 Completed Unive rsity of MODERNA VACCINE 00:00:00 [facility] SARS-COV-2 COVID-19 2020-08-31 Completed Unive rsity of MODERNA VACCINE 00:00:00 [facility] SARS-COV-2 COVID-19 2020-08-31 Completed Unive rsity of MODERNA VACCINE 00:00:00 [facility] Influenza High Dose 2020-05-29 Completed Unive rsity of Quad 00:00:00 [facility] Influenza High Dose 2020-05-29 Completed Unive rsity of Quad 00:00:00 [facility] Influenza Virus 2018-05-08 Completed Universit y of Vaccine 00:00:00 [facility] Influenza Virus 2018-05-08 Completed Universit y of Vaccine 00:00:00 [facility] Vital Signs Vital Name Observation Time Observation Value Comments Source Systolic blood 2021-12-01 18:05:00 115 mm[Hg] [facility] Diastolic blood 2021-12-01 18:05:00 65 mm[Hg] [facility] Heart rate 2021-12-01 18:02:00 70 /min [facility] Body height 2021-12-01 18:02:00 190.5 cm [facility] Body weight 2021-12-01 18:02:00 108.863 kg [facility] BMI 2021-12-01 18:02:00 30.00 kg/m2 [facility] Oxygen saturation 2021-12-01 18:02:00 95 /min [facility] in Arterial blood Medical [facility] by Pulse oximetry Procedures Procedure Date / Time Performed Performing Clinician Nico rojelio EKG-12 LEAD 2021-12-01 18:09:03 Jese Mathur [facility] Encounters Start End Encounter Admission Attending Care Care Encounter Source Date/Time Date/Time Type Type Clinicians Facility Department ID 2022-03-23 Outpatient GAUVAIN, [facility] [id number] [place] 08:18:11 REID [id number] [facility] 2022-03-18 Outpatient [place], [facility] [id number] [place] 13:59:30 [facility] [id number] [facility] 2022-03-09 Outpatient [place], [facility] [id number] [place] 09:40:32 REID [id number] [facility] 2022-03-08 Outpatient [place], [facility] [id number] [place] 13:02:27 REID [id number] [facility] 2022-02-11 Outpatient [place], [facility] [id number] [place] 09:06:08 REID [id number] [facility] 2022-01-14 Outpatient [place], [facility] [id number] [place] 10:03:57 REID [id number] [facility] 2022-01-13 Outpatient [place], [facility] [id number] [place] 10:36:58 REID [id number] [facility] 2021-12-31 Outpatient [place], [facility] [id number] [place] 15:44:21 REID [id number] [facility] 2021-12-10 Outpatient [place], [facility] [id number] [place] 09:11:52 REID [id number] [facility] 2021-11-12 Outpatient [facility] [id number] [place] 10:01:10 [facility] 2019-09-03 Inpatient DAKSHA Simmons, [facility]AT[facility] [id number] [facility] 08:45:00 Ronan [id number] [facility] 2022-04-06 2022-04-06 Outpatient DANIELAYUDY, [facility] [id number] [place] 14:15:00 14:15:00 [facility] 2022-03-22 2022-03-22 [id number] 10:41:00 20:52:00 [facility] 2022-03-18 2022-03-18 Office Taishakaterinyudy [facility] [id number] [place] 14:30:00 15:18:[address] [facility] [id number] [facility] MEDICAL [id number] PLAZA 4 [id number] 2022-03-09 2022-03-09 Office Taishakaterinyudy [facility] [id number] [place] 10:45:00 11:00:[address] [facility] [id number] [facility] MEDICAL [id number] [place] 6 [id number] 2022-02-11 2022-02-11 Office Taishakaterinyudy [facility] [id number] [place] 10:30:00 10:45:[address] [facility] [id number] [facility] MEDICAL [id number] [place] 4 [id number] 2022-01-20 2022-01-20 Outpatient Chemo RUGGIERO [facility] [id number] Univers 15:15:00 15:15:00 COOPER [id number] [facility] 2022-01-20 2022-01-20 Outpatient Chemo RUGGIERO [facility] [id number] Univers 15:15:00 15:15:00 COOPER [facility] 2022-01-14 2022-01-14 Office Rosie [facility] [id number] [place] 10:15:00 10:30:00 Visit Reid SOLITAR[facility] [id number] [facility] MEDICAL [id number] [place] 1 [id number] 2021-12-30 2021-12-30 [facility] [facility] 10:51:00 23:59:00 [facility] 2021-12-30 2021-12-30 Outpatient [facility] [id number] [place] 13:30:00 13:30:00 [facility] 2021-12-28 2021-12-28 Telephone [facility] [id number] [facility] 00:00:00 00:00:00 Sendhugh BOOTHE [id number] [place] [facility] [place] [id number] Md dical NAL 9 [facility] 2021-12-10 2021-12-10 Office Taishajackson [facility] [id number] [place] 10:15:00 10:30:00 Visit [facility] [id number] [facility] MEDICAL 9.2.7.2.686 PLA[place] 6 [id number] 2021-12-01 2021-12-01 [facility] [id number] [facility] 13:00:00 13:33:49 Visit Jese [place] [id number] [place] [facility] [place] [id number] Md dical NAL 9 [facility] 2021-11-18 2021-11-18 Telephone Zach Kalyani [facility] [id number] .[id number] [place] 00:00:00 00:00:00 Serrano Kalyaniheath [facility] [id number] Health MEDICAL [id number] PLA[place] 2 [id number] 2021-11-12 2021-11-12 Office TAISHAKATERINYUDY [facility] [id number] [place] 09:45:00 10:00:00 Visit REID RIVERTON [id number] H [facility] [id number] [place] 8 [id number] 2020-06-15 2020-06-22 Office Kevan [facility] 1.2.840.114 [id number] 10:49:09 15:30:50 Visit Dilcia Padilla [facility] 350.1.13.10 IAY 4.2.7.2.686 CENTER [id number] [facility] 2020-01-13 2020-01-13 Outpatient HARRY SimmonsTO RADI [id number] [facility] 09:30:00 09:30:00 Ronan [id number] [facility] 2018-05-24 2018-05-24 [facility] 21 [id number] Common 11:00:00 11:00:00 [facility] - [facility] Results Test Description Test Time Test Comments Results Result [facility] e Comments - CT LOWER EXTRM 2020-01-13 Patient Name: W/O C LT 10:22:00 KATHY CHEATHAM Unit No: [id number] EXAMS: CPT CODE: [id number] CT LOWER EXTRM W/[place] [address] [place] OF THE LEFT ANKLE WITH SAGITTAL AND CORONAL RECONSTRUCTIONS DIAGNOSIS: Screws traverse the tibiotalar joint. There is no evidence for bony fusion. COMMENT: COMPARISON: No prior exams available. Scans were performed with thin sections and reconstructions were obtained. CT radiation dose optimization is achieved for this examination by the use of a CT protocol in accordance with ACR practice standards and adherence to high pressure cleaner's recommendations. Postsurgical changes as described. There is narrowing of the tibiotalar joint without fusion. at 1022 Reported and signed by: Shadi Knox MD CC: Ronan Simmons MD Technologist: RT Shea(R) CTDI: DLP: Trnscrpt: 01/13/2020 (1022) tMARINEL [facility] NAME: KATHY CHEATHAM [address] [facility] PHYS: ADAL - Ronan Simmons MD : 1955 AGE: 64 SEX: M [place], [place] [address] LOC: Y.RAD PHONE #: [phone] EXAM DATE: 01/13/2020 STATUS: REG CLI FAX #: [phone] RAD #: D/C DT PAGE 1 Signed Report Patient Name: KATHY CHEATHAM Unit No: [id number] EXAMS: CPT CODE: [id number] CT LOWER EXTRM W/[place] [address] <Continued> Orig Print D/T: S: 01/13/2020 (1025) [facility] NAME: KATHY CHEATHAM [address] [facility] PHYS: Ronan Hernandez MD : 1955 AGE: 64 SEX: M [place], [place] [address] LOC: Y.RAD PHONE #: [phone] EXAM DATE: 01/13/2020 STATUS: REG CLI FAX #: [phone] RAD #: D/C DT PAGE 2 Signed Report BASIC METABOLIC PANEL 2019-08-19 17:49:00 Test Item Value Reference Range Interpretation Comme nts SODIUM (test code = NA) 143 mmol/L 136-145 N POTASSIUM (test code = K) 4.1 mmol/L 3.5-5.1 N CHLORIDE (test code = CL) 106.0 mmol/L 98-107 N CARBON DIOXIDE (test code = 23.6 mmol/L 21-32 N CO2) GLUCOSE (test code = GLU) 77 mg/dL 70-110 N BLOOD UREA NITROGEN (test code 16 mg/dL 7-18 N = BUN) GLOMERULAR FILTRATION RATE 78.9 >60 U nit of measure: mL/min/1.73 (test code = GFR) [id number] Range:Healthy Adults >90 mL/m in/1.73 m2 For Chronic Kidney Disease: Stage II Mild Decreas e in GFR 60-90 Stage III Moderate Decrease in GFR 30-59 Stage IV Severe Decre ase in GFR 15-29 Stage V K idney Failure <15 CREATININE (test code = CREAT) 0.96 mg/dL 0.55-1.30 N CALCIUM (test code = CA) 9.0 mg/dL 8.2-10.1 N
[2022-04-05] MEDS ORDERED: NA CHLORIDE 0.9% 1,000 ML ONE (08:17)
[2022-04-05] MEDS ORDERED: BISACODYL 10 MG RECTAL SUPP ONE ×2 (08:17→09:49)
[2022-04-05] MEDS ORDERED: LACTULOSE 20 GM/30 ML UCUP ONE (08:17)
[2022-04-05 08:31] LABS: Absolute Lymphocytes (CBC) 1.6 K/uL (0.7-4.9); Hematocrit 36.9 % (39.6-49.0); Lymphocytes % 16.6 % (15.3-44.8); MCV 86.6 fL (80-100); MPV 7.3 fL (7.6-11.3); RBC Red Blood Cell Count 4.27 M/uL (4.33-5.43)
[2022-04-05 08:48] LABS: Albumin 3.4 g/dL (3.4-5.0); Bilirubin Total 0.6 mg/dL (0.2-1.0); Protein, Total 6.6 g/dL (6.4-8.2)
[2022-04-05] MEDS ORDERED: MORPHINE 4 MG/ML SYR ONE (09:43)
[2022-04-05] MEDS ORDERED: ONDANSETRON 4 MG/2 ML VIAL ONE (09:43)
--- NOTE | 2022-04-05 10:08 | EDPHYS ---
Physician Documentation [facility] Name: Harsh Guthrie Age: 66 yrs Sex: Male : 1955 Arrival Date: 04/05/2022 Time: 07:49 Bed 4 Private MD: John Drew V ED Physician Roderick Vergara HPI: 04/05 09:29 This 66 yrs old Male presents to ER via Wheelchair with complaints of vish Constipation. 09:29 The patient presents with abdominal pain in the lower abdomen. Onset: The vish symptoms/episode began/occurred 2 day(s) ago. The symptoms radiate to. Associated signs and symptoms: Pertinent positives: constipation. The symptoms are described as crampy, sharp. Modifying factors: The symptoms are alleviated by remaining still, the symptoms are aggravated by movement, pressure. Severity of pain: At its worst the pain was moderate in the emergency department the pain is unchanged. The patient has experienced similar episodes in the past, several times. Historical: - Allergies: 07:56 No Known Allergies; iw - PMHx: 07:56 COPD; Hypertension; restless leg syndrome; Hyperlipidemia; Sleep Apnea; WPW- corrected iw with cardiac ablation; - Immunization history:: Client reports receiving the 2nd dose of the Covid vaccine. - Social history:: Smoking status: Patient reports the use of cigarette tobacco products. - Family history:: not pertinent. ROS: 09:29 Constitutional: Negative for fever, chills, and weight loss, Eyes: Negative for injury, vish pain, redness, and discharge, ENT: Negative for injury, pain, and discharge, Neck: Negative for injury, pain, and swelling, Cardiovascular: Negative for chest pain, palpitations, and edema, Respiratory: Negative for shortness of breath, cough, wheezing, and pleuritic chest pain, Back: Negative for injury and pain, : Negative for injury, bleeding, discharge, and swelling, MS/Extremity: Negative for injury and deformity, Skin: Negative for injury, rash, and discoloration, Neuro: Negative for headache, weakness, numbness, tingling, and seizure. 09:29 Abdomen/GI: Positive for abdominal pain, of the suprapubic area, right lower quadrant and left lower quadrant. Exam: 09:29 Constitutional: This is a well developed, well nourished patient who is awake, alert, vish and in no acute distress. Head/Face: Normocephalic, atraumatic. Eyes: Pupils equal round and reactive to light, extra-ocular motions intact. Lids and lashes normal. Conjunctiva and sclera are non-icteric and not injected. Cornea within normal limits. Periorbital areas with no swelling, redness, or edema. ENT: Nares patent. No nasal discharge, no septal abnormalities noted. Tympanic membranes are normal and external auditory canals are clear. Oropharynx with no redness, swelling, or masses, exudates, or evidence of obstruction, uvula midline. Mucous membranes moist. Neck: Trachea midline, no thyromegaly or masses palpated, and no cervical lymphadenopathy. Supple, full range of motion without nuchal rigidity, or vertebral point tenderness. No Meningismus. Chest/axilla: Normal chest wall appearance and motion. Nontender with no deformity. No lesions are appreciated. Cardiovascular: Regular rate and rhythm with a normal S1 and S2. No gallops, murmurs, or rubs. Normal PMI, no JVD. No pulse deficits. Respiratory: Lungs have equal breath sounds bilaterally, clear to auscultation and percussion. No rales, rhonchi or wheezes noted. No increased work of breathing, no retractions or nasal flaring. Back: No spinal tenderness. No costovertebral tenderness. Full range of motion. Male : Normal genitalia with no discharge or lesions. Skin: Warm, dry with normal turgor. Normal color with no rashes, no lesions, and no evidence of cellulitis. MS/ Extremity: Pulses equal, no cyanosis. Neurovascular intact. Full, normal range of motion. Neuro: Awake and alert, GCS 15, oriented to person, place, time, and situation. Cranial nerves II-XII grossly intact. Motor strength 5/5 in all extremities. Sensory grossly intact. Cerebellar exam normal. Normal gait. Psych: Awake, alert, with orientation to person, place and time. Behavior, mood, and affect are within normal limits. 09:29 Abdomen/GI: Inspection: distension, that is mild, Bowel sounds: normal, Palpation: mild abdominal tenderness, in the suprapubic area, right lower quadrant and left lower quadrant, Rectal exam: fecal impaction, that is moderate, that is severe, Liver: no appreciated palpable abnormalities, Hernia: not appreciated. Vital Signs: 07:55 BP 160 / 80; Pulse 72; Resp 18 S; Temp 97.4; Pulse Ox 97% ; Weight 106.59 kg; iw MDM: 08:00 Patient medically screened. vish 09:33 Differential diagnosis: diverticulitis, Mesenteric ischemia or infarction, non-specific vish abd pain, pancreatitis, Prostatitis, urinary tract infection. Data reviewed: vital signs, nurses notes, lab test result(s), radiologic studies, CT scan. Data interpreted: engine monitor: rate is 72 beats/min, rhythm is regular, Pulse oximetry: on room air is 72 %. Counseling: I had a detailed discussion with the patient and/or guardian regarding: the historical points, exam findings, and any diagnostic results supporting the discharge/admit diagnosis, lab results, radiology results, the need for outpatient follow up, for definitive care, a family practitioner, a assembler installer structures. 04/05 08:03 Order name: CBC with Diff; Complete Time: 08:55 [facility] 04/05 08:03 Order name: CMP; Complete Time: 08:55 [facility] 04/05 08:03 Order name: Lipase; Complete Time: 08:55 [facility] 04/05 08:03 Order name: IV Saline Lock; Complete Time: 08:30 [facility] 04/05 08:03 Order name: Labs collected and sent; Complete Time: 08:30 [facility] 04/05 08:03 Order name: Urine Dipstick-Ancillary (obtain specimen); Complete Time: 09:47 [facility] 04/05 08:56 Order name: Misc. Order: digital disimpact; Complete Time: 10:01 [facility] 04/05 09:29 Order name: Misc. Order: please follow original orders; Complete Time: 09:33 [facility] Administered Medications: 08:31 Drug: NS 0.9% 1000 ml Route: IV; Rate: 1 bolus; Site: right forearm; ph 09:46 Follow up: Response: No adverse reaction; IV Status: Completed infusion ph 09:45 Drug: Dulcolax (bisacodyl) Suppository 10 mg Route: AK; ph 10:00 Follow up: Response: No adverse reaction ph 09:46 Not Given (Patient Refused): Lactulose 60 grams 45 ml PO once ph 09:46 Not Given (Patient Refused): morphine 4 mg IVP once over 4 mins ph 09:46 Not Given (Patient Refused): Zofran (Ondansetron) 4 mg IVP once; over 2 minutes ph Disposition Summary: 04/05/22 10:07 Discharge Ordered Location: Home [facility] Problem: new vish Symptoms: have improved vish Condition: Stable vish Diagnosis - Constipation, unspecified - impaction vish Followup: vish - With: - When: 2 - 3 days - Reason: Recheck today's complaints, Continuance of care, Re-evaluation by your physician Followup: vish - With: - When: 2 - 3 days - Reason: Recheck today's complaints, Re-evaluation by your physician Discharge Instructions: - Discharge Summary Sheet vish - Constipation, Adult vish - High-Fiber Diet vish - Constipation, Adult, [id number] vish Forms: - Medication Reconciliation Form vish - Thank You Letter vish - Antibiotic Education vish - Prescription Opioid Use vish Prescriptions: - Dulcolax (bisacodyl) 10 mg Rectal suppository - insert 1 suppository by RECTAL route every 12 hours; 12 suppository; Refills: vish 0, Product Selection Permitted - Lactulose 10 gram/15 mL Oral Solution - take 30 milliliters by ORAL route once daily; 300 milliliter; Refills: 0, vish Product Selection Permitted Signatures: Dispatcher [employer] Roderick Martino MD MD cha Williams, Irene, RN RN Liyah Rodríguez RN RN ph
--- NOTE | 2022-04-05 10:08 | ER ---
Nurse's Notes [facility] Name: Harsh Guthrie Age: 66 yrs Sex: Male : 1955 Arrival Date: 04/05/2022 Time: 07:49 Bed 4 Private MD: John Drew V Diagnosis: Constipation, unspecified-impaction Presentation: 04/05 07:55 Chief complaint: Patient states: I havent had a BM in several days and I'm impacted. iw Coronavirus screen: At this time, the client does not indicate any symptoms associated with coronavirus-19. Ebola Screen: Patient negative for fever greater than or equal to 101.5 degrees Fahrenheit, and additional compatible Ebola Virus Disease symptoms Patient denies exposure to infectious person. Patient denies travel to an Ebola-affected area in the 21 days before illness onset. No symptoms or risks identified at this time. Initial Sepsis Screen: Does the patient meet any 2 criteria? No. Patient's initial sepsis screen is negative. Does the patient have a suspected source of infection? No. Patient's initial sepsis screen is negative. Risk Assessment: Do you want to hurt yourself or someone else? Patient reports no desire to harm self or others. Onset of symptoms was April 05, 2022. 07:55 Method Of Arrival: Wheelchair iw 07:55 Acuity: TAMI 3 iw Historical: - Allergies: 07:56 No Known Allergies; iw - PMHx: 07:56 COPD; Hypertension; restless leg syndrome; Hyperlipidemia; Sleep Apnea; WPW- corrected iw with cardiac ablation; - Immunization history:: Client reports receiving the 2nd dose of the Covid vaccine. - Social history:: Smoking status: Patient reports the use of cigarette tobacco products. - Family history:: not pertinent. Screenin:31 Abuse screen: Denies threats or abuse. Denies injuries from another. Nutritional ph screening: No deficits noted. Tuberculosis screening: No symptoms or risk factors identified. Fall Risk None identified. Assessment: 08:31 General: Appears in no apparent distress. uncomfortable, Behavior is cooperative, ph appropriate for age, Denies fever. Pain: Complains of pain in buttocks and abdomen. Neuro: Level of Consciousness is awake, alert, obeys commands, Oriented to person, place, time, situation. Cardiovascular: Capillary refill < 3 seconds in bilateral fingers Patient's skin is warm and dry. Respiratory: Airway is patent Respiratory effort is even, unlabored. GI: Abdomen is round Reports lower abdominal pain, upper abdominal pain, constipation. Derm: Skin is pink, warm \\T\\ dry. Musculoskeletal: Circulation, motion, and sensation intact. Range of motion: intact in all extremities. 08:33 Reassessment: Pt requesting disimpaction, states, " I've already taken dulcolax at home. It feels like it's a big ball and is too large to come out on it's own. I tried using gloves and vasoline at home to get it out myself but I couldn't." ERP notified of pt request. 09:30 Reassessment: Dr Vergara at bedside to attempt disimpaction, no stool extracted. ph 09:40 Reassessment: Assisted pt to bedside commode to attempt BM, encourage pt to drink ph lactulose as ordered, pt refused, states, " I can take pills but I can't drink liquid medication." Pt refused IV pain medication at this time, also refusing to drink PO contrast,states, " I'm not doing the CT either. Do I need this IV? If you'll take it out I'll just check myself out and go." Pt remains on bedside commode, encouraged pt to administer suppository or offered to do so for him. Pt states that he will attempt to administer it, gloves and lubricant left in reach along w/ cleansing wipes. 10:02 Reassessment: Pt requesting that IV be removed so that he can leave. Again encouraged pt to comply w/ providers orders of PO medications and CT. Pt again refused, states, " If I can't get any relief I just want to go." IV removed and pt ambulated to [facility]. Vital Signs: 07:55 BP 160 / 80; Pulse 72; Resp 18 S; Temp 97.4; Pulse Ox 97% ; Weight 106.59 kg; iw ED Course: 07:49 Patient arrived in ED. mr 07:49 John Drew MD is Private Physician. mr 07:56 Triage completed. iw 07:56 Arm band placed on. iw 07:57 Liyah Rodríguez RN is Primary Nurse. ph 08:00 Roderick Vergara MD is Attending Physician. vish 08:31 Patient has correct armband on for positive identification. Bed in low position. Call ph light in reach. Side rails up X 1. Pulse ox on. NIBP on. Door closed. Noise minimized. Warm blanket given. 08:35 Initial lab(s) drawn, by me, sent to lab. Inserted saline lock: 22 gauge in right ph forearm, using aseptic technique. Blood collected. 10:04 IV discontinued, intact, bleeding controlled, No redness/swelling at site. Pressure ph dressing applied. 10:07 John Drew MD is Referral Physician. vish 10:07 Niurka Campbell MD is Referral Physician. vish 10:09 No provider procedures requiring assistance completed. ph Administered Medications: 08:31 Drug: NS 0.9% 1000 ml Route: IV; Rate: 1 bolus; Site: right forearm; ph 09:46 Follow up: Response: No adverse reaction; IV Status: Completed infusion ph 09:45 Drug: Dulcolax (bisacodyl) Suppository 10 mg Route: CA; ph 10:00 Follow up: Response: No adverse reaction ph 09:46 Not Given (Patient Refused): Lactulose 60 grams 45 ml PO once ph 09:46 Not Given (Patient Refused): morphine 4 mg IVP once over 4 mins ph 09:46 Not Given (Patient Refused): Zofran (Ondansetron) 4 mg IVP once; over 2 minutes ph Medication: 08:31 VIS not applicable for this client. ph Outcome: 10:07 Discharge ordered by . [facility] 10:09 Discharged to home pt left before signing papers ph 10:09 Condition: stable 10:10 Patient left the ED. ph Signatures: Roderick Vergara MD MD cha Rivera, Mary mr Williams, Irene, ERIN RN Liyah Gonzalez RN RN ph Corrections: (The following items were deleted from the chart) 07:57 07:55 Pulse 72bpm; Resp 18bpm; Spontaneous; Pulse Ox 97%; Temp 97.4F; 106.59 kg; iw iw
[2022-04-05 10:34] VITALS: BP 160/80; TEMP 97.4; O2SAT 97
== END 2022-04-05 10:10 | disposition home or self-care (01) ==
LOC: ER 07:48
DX: K56.41 Fecal impaction (principal); I10 Essential (primary) hypertension; F17.210 Nicotine dependence, cigarettes, uncomplicated
CPT/HCPCS: 85025; 36415; 83690; 80053; J7030; J2405

== ENCOUNTER 2022-07-28 12:58 | Day surgery (SDC) | payer OTHER ==
[2022-07-26 10:16] LABS: Absolute Lymphocytes (CBC) 2.1 K/uL (0.7-4.9); Hematocrit 41.2 % (39.6-49.0); Lymphocytes % 23.4 % (15.3-44.8); MCV 89.6 fL (80-100)
[2022-07-26 10:26] LABS: Potassium 4.3 mmol/L (3.5-5.1)
--- NOTE | 2022-07-26 11:24 | RAD REPORT ---
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 FINDINGS: The lungs are fibrotic with multiple areas of focal lung parenchymal scarring. The interst itial pattern matches the 2019 comparison. No new mass, infiltrate or acute lung parenchymal process seen. Diaphragm is flattened. Heart size is normal and central vasculature is within normal limits. No pleural effusion or pneu mothorax seen. No acute bony finding noted. No aortic abnormality. IMPRESSION: Chronic interstitial fibrotic lung change similar to 2019 study. No acute finding.
--- NOTE | 2022-07-26 14:13 | EKG ---
Test Date: 2022-07-26 Test Time: 09:37:13 Steam Cleaner: ROBERTO MEASUREMENT RESULTS: Intervals: Rate: 64 CT: 178 QRSD: 108 QT: 432 QTc: 445 [place]: P: 52 CT: 178 QRS: 3 T: 90 INTERPRETIVE STATEMENTS: Normal sinus rhythm Incomplete right bundle branch block Nonspecific ST and T wave abnormality Abnormal ECG Compared to ECG 01/30/2019 08:55:13 ST (T wave) deviation now present Electronically Signed On 07-26-22 14:12:25 NICK SETTER by John Rose
[2022-07-28] MEDS ORDERED: HEPA 1000U/500MLS 2,000 UNIT/1,000 ML BAG IV ONE (14:19)
[2022-07-28] MEDS ORDERED: HEPARIN 5000 UNIT/ML 1 ML VIAL ONE (14:20)
[2022-07-28] MEDS ORDERED: MIDAZOLAM HCL 2 MG/2 ML INJ ONE (14:20)
[2022-07-28] MEDS ORDERED: FENTANYL CITR 100 MCG/2 ML ONE (14:20)
[2022-07-28] MEDS ORDERED: VERAPAMIL HCL 10 MG/4 ML VIAL IV ONE (14:21)
[2022-07-28] MEDS ORDERED: ATROPINE SULF 1 MG/10 ML SYR IV ONE (14:21)
[2022-07-28] MEDS ORDERED: HEPARIN 10,000 UNIT/10 ML VIAL IV ONE (14:21)
[2022-07-28] MEDS ORDERED: NITROGLYCERIN 100 MCG/ML SYR (for cath lab use only) IV ONE (14:21)
[2022-07-28 17:02] VITALS: BP 149/80; O2SAT 95
--- NOTE | 2022-07-29 01:36 | OP ---
Date of Procedure: 07/28/2022 Surgeon: VICKIE LINARES Procedure Performed: Peripheral angiogram with distal aortogram and runoff. Access: Right radial artery 6-Nepalese, closed with TR band. Complications: None. Bleeding: Less than 10 mL. Description Of Procedure: After risks, benefits, and alternatives were explained, patient agreed to proceed and signed informed consent. [facility] and prepped and draped in usual sterile fashion. Then I accessed right radial artery using a pe diatric micropuncture kit, placed a 6-Nepalese Slender sheath and took a 4-Nepalese long Otto catheter in distal aorta and performed distal aortogram and runoff and then I took a multipurpose catheter 4-F rench, and it is long and best restenosis common iliac artery measured the pressure in the common lobo ac artery and was 40-50 mmHg difference in pressure. Then, we removed the catheter and sheath, place d TR band with good hemostasis. Findings: 1.Distal aorta is patent. 2.Right common iliac in the midportions 90% to 95% stenosis and then followed by 80% stenosis, heavi ly calcified, and then common femoral artery appears normal. Profunda is normal. Then, the right SF A is patent with diffuse disease ranging between 30% to 50% to multiple locations and then the triple vessels below the knee, they were all open. However, the flow becomes very sluggish and slow due to the severe iliac stenosis. 3.The left common iliac is approximately 50% stenosed and then the left internal iliac artery and le ft common femoral artery are all patent and the left profunda is patent and then the left SFA is with diffuse 20% to 30% stenosis on multiple locations and then the triple vessel are patent all the way to the foot. Conclusion: Severe right common iliac artery stenosis, heavily calcified at 2 tandem lesions. Plan: Shockwave lithotripsy followed by angio balloon angioplasty and possible stent placement to be done at [place]. SR/MODL Voice ID: [id number] Report ID: [id number]
== END 2022-07-28 17:03 | disposition home or self-care (01) ==
LOC: CCL 12:58
PROVIDERS: ATTEND Internal Medicine
DX: I70.213 Atherosclerosis of native arteries of extremities with intermittent claudication, bilateral legs (principal); I25.10 Atherosclerotic heart disease of native coronary artery without angina pectoris; I71.20 Thoracic aortic aneurysm, without rupture, unspecified; I10 Essential (primary) hypertension; E11.9 Type 2 diabetes mellitus without complications; E78.5 Hyperlipidemia, unspecified; Z87.891 Personal history of nicotine dependence; Z79.82 Long term (current) use of aspirin; Z79.4 Long term (current) use of insulin; Z79.899 Other long term (current) drug therapy; Z82.49 Family history of ischemic heart disease and other diseases of the circulatory system
CPT/HCPCS: 93005; 85025; 80048; 36415; 85610; 82947; 85730; 71046; 75630; C1893; J1644 ×2; J2250; J3010; J0461

== ENCOUNTER 2022-12-25 19:44 | Emergency (ER) | payer OTHER ==
--- OUTSIDE RECORDS SUMMARY | 2022-12-25 19:53 | XMS REPORT | Continuity of Care Document ---
:1955 Author Organization [facility] t Address [address] [place] [address] Care Team Providers Name Role Phone John Marcos Primary Care Physician John Rose Attending Clinician Unavailable Ronan Simmons Attending Clinician Unavailable Jese Gomez MD K.HJostin Attending Clinician Reid Velez MD Attending Clinician Doctor Unassigned, [facility] Attending Clinician Unavailable JESE GOMEZHJostin Attending Clinician Unavailable REID VELEZ Attending Clinician Unavailable Redi Velez Attending Clinician MARKEL RUGGIERO Attending Clinician Unavailable Kalyani Serrano MA Attending Clinician Unavailable Roland Hall Attending Clinician ROLAND ROE Attending Clinician Unavailable Nurse, [facility] Attending Clinician Unavailable Nina Bhatti Attending Clinician Henny BRAMBILA, Jaswinder Attending Clinician ERIC PLEITEZ Attending Clinician Unavailable Cuauhtemoc BRAMBILA, Dilcia Padilla Attending Clinician DILCIA POSADAS DECEMBER Attending Clinician Unavailable Eric Ellsworth Attending Clinician LETY PEDERSEN Attending Clinician Unavailable Pob, [facility] Main Attending Clinician Unavailable Markel Ruggiero MD Attending Clinician Lab, Adc Fam Pob I Attending Clinician Unavailable Iliana Cee Attending Clinician Chapito Chavez DO Attending Clinician John Drew V Admitting Clinician Unavailable Physician, No Primary or Family Admitting Clinician UnavailJESE Segovia K.HJostin Admitting Clinician Unavailable ROLAND ROE Admitting Clinician Unavailable UNDEFINED Admitting Clinician Unavailable Payers Payer Name Policy Type Policy Number Effective Date Expiration Date Theresa hutchins [facility] [id number] 2021 00:00:00 [facility] [id number] 2017 EMPLOYEE PLAN 00:00:00 Problems Condition Condition Condition Status Onset Resolution Last Treating Co mments Source Name Details Category Date Date Treatment Clinician Date History of History of Disease Active 2021-08 U T total total 1-30 Health ankle ankle 00:00: replacemen replacemen 00 t, left t, left Rupture of Rupture of Disease Active U T operation operation 8-10 Heal th wound wound 00:00: 00 UNK UNK Diagnosis Active 2022-03-22 Mem oria Active 03-18 06:44:00 l 03/18/2022 00:00: Vipin dalal [facility] 00 Delfino I D/POSS I D/POSS Diagnosis Active 2022-03-22 Reyna IRVIN 03-18 10:46:00 l EXCHANGE,L EXCHANGE,L 00:00: He rmann FT ANKLE_ FT ANKLE_ 00 Active 03/18/2022 [facility] PAIN PAIN Diagnosis Active 2021-12-30 Mem oria Active 12-17 11:00:00 l 12/17/2021 00:00: Vipin dalal [address] Chronic Chronic Disease Active [facility] pain of pain of 3-18 Health left ankle left ankle 00:00: 00 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 Added automatic ally from request for surgery [id number] Essential Essential Disease Active Uni vers hypertensi hypertensi 04-28 it y of on on 00:00: [place] 00 Medical Branch WPW WPW Disease Active Univers (Jessica-Par (Jessica-Par 04-28 it y of kinson-Whi kinson[place]Whi [place] Medical syndrome) syndrome) Bran ch Thoracic Thoracic Disease Active Unive rs aortic aortic 04-28 ity of aneurysm aneurysm 00:00: [place] without without 00 Medical rupture rupture Branch Tobacco Tobacco Disease Active Univers abuse abuse 04-28 ity of 00:00: [place] Medical [facility] Dyslipidem Dyslipidem Disease Active U nivers ia ia 04-28 ity of 00:00: [place] 00 Medical Branch Myocardial Myocardia Problem Resolve 2022-03-25 Memoria infarction l d 00:34:27 l (disorder) infarction He rmann (disorder) Resolved Problem 03/25/2022 mild 2017 while they were implanting the cardiac stents [facility] Chronic Chronic Problem Active 2022-03-25 Me moria obstructiv obstructiv 00:34:27 l e lung e lung Delfino disease disease (disorder) (disorder) Active Problem 03/25/2022 pt does not use oxygen or inhalers [facility] Diabetes Diabetes Problem Active 2022-03-25 Memoria mellitus mellitus 00:34:27 l (disorder) (disorder) He rmann Active Problem 03/25/2022 [facility] Hyperchole Hyperchol Problem Active 2022-03-25 Memoria sterolemia esterolemi 00:34:27 l (disorder) a Vipin n (disorder) Active Problem 03/25/2022 [facility] Hypertensi Hypertens Problem Active 2022-03-25 Memoria ve maxim 00:34:27 l disorder, disorder, Herm jayant systemic systemic arterial arterial (disorder) (disorder) Active Problem 03/25/2022 [facility] Obstructiv Obstructi Problem Active 2022-03-25 Memoria e sleep ve sleep 00:34:27 l apnea 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 [facility] T84.9XXA - T84.9XXA Diagnosis Active 2021-11-24 Memoria UNSP COMP - UNSP 10:34:00 l OF COMP OF Delfino INTERNAL INTERNAL ORTHOPE ORTHOPE Active [facility] Z96.662 - Z96.662 - Diagnosis Active 2022-09-27 Memoria PRESENCE PRESENCE 13:07:00 l OF LEFT OF LEFT [place] ARTIFICIAL ARTIFICIAL AN AN Active [facility] Malignant Malignant Problem Resolve 2022-03-25 Memoria neoplasm neoplasm d 00:34:27 l of skin of skin Delfino (disorder) (disorder) Resolved Problem 03/25/2022 [facility] Pain of Pain of Diagnosis Active Commo n joint of joint of [facility] left ankle left ankle - [facility] and foot and foot [facility] Pain, Pain, Problem Active Common joint, joint, [facility] shoulder, shoulder, - [facility] left left [facility] 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 [facility] osteoarthr osteoarthr - [facility] itis of itis of left ankle left ankle [facility] History of Past Illness Condition Condition Condition Status Onset Resolution Last Treating Co mments Source Name Details Category Date Date Treatment Clinician Date Disruption Disruptio Problem 2022-03-25 2022-03-25 Memoria of n of 7- 00:34:27 00:34:27 l external external 15:02: Vipin n operation operation 00 (surgical) (surgical) wound, not wound, not elsewhere elsewhere classified classified , initial , initial encounter encounter 03/22/2022 03/25/2022 [facility] Allergies, Adverse Reactions, Alerts Allergy Allergy Status Severity Reaction(s) Onset Inactive Treating Comm ents Source Name Type Date Date Clinician Spironol Propensi Active Other - See gynecoma s Univers actone ty to comments 2- tia ity of adverse 00:00: [place] reaction 00 Medical s Branch SPIRONOL DRUG Active Other-Cmnt Univ ers ACTONE INGREDI 2- ity of 00:00: [place] 00 Medical Branch No Known DA Active U 2018-08 [facility] Allergie 10-20 Clear s 00:00: [place] 00 [facility] No Known DA Active U 2018-08 [facility] Allergie 10-20 [place] [facility] 00:[facility] ROPINIRO DRUG Active High Other-Cmnt 2017-08 Univ ers LE INGREDI 1- ity of 00:00: [place] 00 Medical Branch Ropiniro Propensi Active Other - See 2017-08 U nivers le ty to comments 1-26 ity of adverse 00:00: [place] reaction 00 Medical s Branch VARENICL DRUG Active Unknown-Cmnt 2017-08 Un mack INE INGREDI 0-08 ity of 00:00: [place] 00 Medical Branch Varenicl Propensi Active Unknown - 2017-08 Aggressio Univers ine ty to See comments 0-08 n ity of adverse 00:00: Irritable [place] reaction 00 Medical s Branch No Known No Known Active Memori a Medicati Medicati l on on Delfino Allergcholo Allergcholo s s Social History Social Habit Start Date Stop Date Quantity Comments [facility] Alcohol Std Drinks History [facility] Alcohol Binge History [facility] Alcohol Comment Exposure to 2022-09-16 2022-09-26 Not sure [facility] SARS-CoV-2 (event) 00:00:00 10:09:00 Tobacco use and 2022-07-27 2022-07-27 Smokeless tobacco [facility] exposure 00:00:00 00:00:00 non-user Alcohol intake 2022-07-27 2022-07-27 Lifetime [facility] 00:00:00 00:00:00 non-drinker (finding) Cigarettes smoked 2022-07-27 2022-07-27 [facility]al current (pack per 00:00:00 00:00:00 day) - Reported Cigarette 2022-07-27 2022-07-27 [facility] pack-years 00:00:00 00:00:00 Social History 2022-03-21 2022-03-21 [facility] 13:33:44 13:33:44 History SDOH 2021-11-12 2021-11-12 1 [facility] Alcohol Frequency 00:00:00 00:00:00 History of tobacco 1973-02-14 2021-11-04 Cigarette Smoker [facility] use 00:00:00 00:00:00 Sex [birth year] M [facility] 00:00:00 00:00:00 Smoking Status Start Date Stop Date Source Smokes tobacco daily 2022-07-27 00:00:00 [facility] Medications Ordered Filled Start Stop Current Ordering Indication Dosage Frequency Signature Comments Components Source Medication Medication Date Date Medication? Clinician (SIG) Name Name NIFEDIPINE 2021-08 Yes [id number] TAKE 1 Univers XL 30 mg 24 2-07 TABLET BY ity of hr tablet 00:00: MOUTH [place] TWICE Medical DAILY Branch NIFEDIPINE 2021-08 Yes [id number] TAKE 1 Univers XL 30 mg 24 2-07 TABLET BY ity of hr tablet 00:00: MOUTH [place] TWICE Medical DAILY Branch NIFEDIPINE 2021-08 Yes [id number] TAKE 1 Univers XL 30 mg 24 2-07 TABLET BY ity of hr tablet 00:00: MOUTH [place] TWICE Medical DAILY Branch traMADol 2021-08 Yes [id number] 100mg Q6H Take 2 UT (Ultram) 50 1-30 tablets Healt h MG tablet 00:00: (100 mg 00 total) by mouth every 6 (six) hours if needed for severe pain. traMADol 2021-08 Yes [id number] 100mg Q6H Take 2 UT (Ultram) 50 0-21 tablets Healt h MG tablet 00:00: (100 mg 00 total) by mouth every 6 (six) hours if needed for severe pain. ceFAZolin No Route: IV, Me moria (ANETheresa) 7- Drug form: l 00:04: INJ, ONCE, [place] Stop date: 07/26/22 19:04:00 CDT propofol No Route: IV, Mem oria (ANES) 03-23 Drug form: l 00:04: INJ, ONCE, Stop date: 03/22/22 19:04:00 CDT lidocaine No Route: IV, Me moria (ANES) 03-23 Drug form: l 00:04: INJ, ONCE, Stop date: 03/22/22 19:04:00 CDT ondansetron No Route: IV, Memoria (ANES) 03-23 Drug form: l 00:04: INJ, ONCE, Stop date: 03/22/22 19:04:00 CDT dexamethaso No Route: IV, Memoria ne (ANES) 03-23 Drug form: l 00:04: INJ, ONCE, Stop date: 03/22/22 19:04:00 CDT ketOROLAC No IV, ONCE Cayetano butch (ANES) 03-23 l 00:04: Lactated No Route: IV, Mem oria Ringers 03-22 Total l Injection 23:08: Volume: Shelly nn IV (ANES) 00 1,000, 1000 mL Start date: 03/22/22 18:08:00 CDT, Stop date: 03/22/22 19:08:00 CDT Lactated No 1,000 mL, Cayetano butch Ringers 03-22 Rate: 75 l Injection 17:25: ml/hr, Vipin n IV 1,000 mL 00 Infuse over: 13.3 hr, Route: IV, Dosing Weight 108.455 kg, Total Volume: 1,000, Start date: 03/22/22 12:25:00 CDT, Duration: 30 day, Stop date: 04/21/22 12:24:00 CDT, BSA: 2.41 m2, 0 ezetimibe Yes 10 mg = 1 Mem oria 10 mg oral 7-25 tab, PO, l tablet 13:22: Daily, 0 Refill(s) traMADol Yes [id number] 100mg Q6H Take 2 UT (Ultram) 50 7-22 tablets Healt h MG tablet 00:00: (100 mg 00 total) by mouth every 6 (six) hours if needed for severe pain. ondansetron 2021-0 Yes [id number] 8mg Take 1 UT (Zofran) 8 7-22 tablet (8 Heal th MG tablet 00:00: mg total) 00 by mouth every 8 (eight) hours if needed for vomiting or nausea. traMADol 2021-0 Yes [id number] 100mg Q6H Take 2 UT (Ultram) 50 7-22 tablets Healt h MG tablet 00:00: (100 mg 00 total) by mouth every 6 (six) hours if needed for severe pain. ondansetron 2021-0 Yes [id number] 8mg Take 1 UT (Zofran) 8 7-22 tablet (8 Heal th MG tablet 00:00: mg total) 00 by mouth every 8 (eight) hours if needed for vomiting or nausea. traMADol 2021-0 Yes [id number] 100mg Q6H Take 2 UT (Ultram) 50 7-22 tablets Healt h MG tablet 00:00: (100 mg 00 total) by mouth every 6 (six) hours if needed for severe pain. ondansetron 2021-0 Yes [id number] 8mg Take 1 UT (Zofran) 8 7-22 tablet (8 Heal th MG tablet 00:00: mg total) 00 by mouth every 8 (eight) hours if needed for vomiting or nausea. meloxicam 2021-2021- No [id number] 15mg QD Take 1 UT (Mobic) 15 7-13 10-12 tablet (15 He alth MG tablet 00:00: 04:59 mg total) 00 :00 by mouth 1 (one) time each day. meloxicam 2021-2021- No [id number] 15mg QD Take 1 UT (Mobic) 15 7-13 10-12 tablet (15 He alth MG tablet 00:00: 04:59 mg total) 00 :00 by mouth 1 (one) time each day. meloxicam 2021- No [id number] 15mg QD Take 1 UT (Mobic) 15 7-13 10-12 tablet (15 He alth MG tablet 00:00: 04:59 mg total) 00 :00 by mouth 1 (one) time each day. meloxicam 2021- No [id number] 15mg QD Take 1 UT (Mobic) 15 7-13 10-12 tablet (15 He alth MG tablet 00:00: 04:59 mg total) 00 :00 by mouth 1 (one) time each day. sulfamethox 2021- No [id number] 1{tbl} Q.5D Take 1 UT azole-trime 7-09 03-24 tablet by He alth thoprim 00:00: 04:59 mouth in (Bactrim 00 :00 the DS) 800-160 morning MG tablet and 1 tablet in the evening. Do all this for 10 days. sulfamethox 2021- No [id number] 1{tbl} Q.5D Take 1 UT azole-trime 7-09 03-24 tablet by He alth thoprim 00:00: 04:59 mouth in (Bactrim 00 :00 the DS) 800-160 morning MG tablet and 1 tablet in the evening. Do all this for 10 days. traMADol Yes [id number] 100mg Q6H Take 2 UT (Ultram) 50 5-27 tablets Healt h MG tablet 00:00: (100 mg 00 total) by mouth every 6 (six) hours if needed for severe pain. traMADol 0 Yes [id number] 100mg Q6H Take 2 UT (Ultram) 50 5-27 tablets Healt h MG tablet 00:00: (100 mg 00 total) by mouth every 6 (six) hours if needed for severe pain. traMADol 0 Yes [id number] 100mg Q6H Take 2 UT (Ultram) 50 5-27 tablets Healt h MG tablet 00:00: (100 mg 00 total) by mouth every 6 (six) hours if needed for severe pain. traMADol 2021-0 Yes [id number] 100mg Q6H Take 2 UT (Ultram) 50 5-27 tablets Healt h MG tablet 00:00: (100 mg 00 total) by mouth every 6 (six) hours if needed for severe pain. traMADol 0 Yes [id number] 100mg Q6H Take 2 UT (Ultram) 50 5-27 tablets Healt h MG tablet 00:00: (100 mg 00 total) by mouth every 6 (six) hours if needed for severe pain. traMADol Yes [id number] 100mg Q6H Take 2 UT (Ultram) 50 5-27 tablets Healt h MG tablet 00:00: (100 mg 00 total) by mouth every 6 (six) hours if needed for severe pain. glycopyrrol No Route: IV, Memoria ate (ANES) 12-30 Drug form: l 19:47: INJ, ONCE, Stop date: 12/30/21 14:47:00 CDT ePHEDrine No Route: IV, Me moria (ANES) 12-30 Drug form: l 19:47: INJ, ONCE, Stop date: 12/30/21 14:47:00 CDT ceFAZolin No Route: IV, Me moria (ANES) 12-30 Drug form: l 18:46: INJ, ONCE, Stop date: 12/30/21 13:46:00 CDT propofol No Route: IV, Mem oria (ANES) 12-30 Drug form: l 18:26: INJ, ONCE, Stop date: 12/30/21 13:26:00 CDT rocuronium No Route: IV, M emoria (ANES) 12-30 Drug form: l 18:26: INJ, ONCE, Stop date: 12/30/21 13:26:00 CDT lidocaine No Route: IV, Me moria (ANES) 12-30 Drug form: l 18:21: INJ, ONCE, Stop date: 12/30/21 13:21:00 CDT fentaNYL No Route: IV, Mem oria (ANES) 12-30 Drug form: l 18:21: INJ, ONCE, Stop date: 12/30/21 13:21:00 CDT ANES No 10 mg, Memoria hydrALAZINE 5-05 Route: l 18:20: IVP, Q20Min, Dosing Weight 107.1, kg, PRN Elevated BP, Start date: 12/30/21 13:20:00 CDT, Duration: 2 doses or times, Stop date: Limited # of times ANES 2022-0 No 10 mg, Memoria labetalol 5-05 Route: l 18:20: IVP, [place]elf[place] 00 Q5Min, Dosing Weight 107.1, kg, PRN Elevated BP, Start date: 12/30/21 13:20:00 CDT, Duration: 5 doses or times, Stop date: Limited # of times ANES 0 No 1,000 mg, Memoria acetaminoph 5-05 Route: PO, l en 18:20: Drug form: Delfino 00 TAB, ONCE, Dosing Weight 107.1, kg, PRN Pain Score 1-3, Start date: 12/30/21 13:20:00 CDT ANES 2021-0 No 5 mg, Memoria oxyCODONE 5 5-05 Route: PO, l mg 18:20: Drug form: Delfino immediate 00 TAB, Q4H, release Dosing tablet Weight 107.1, kg, PRN Pain Score 4-6, Start date: 12/30/21 13:20:00 CDT, Duration: 30 day, Stop date: 01/29/22 13:19:00 CDT ANES 0 No 0.5 mg, Memoria HYDROmorpho 5-05 Route: l ne 18:20: IVP, [place] 00 Q5Min, Dosing Weight 107.1, kg, PRN Pain Score 7-10, Start date: 12/30/21 13:20:00 CDT, Duration: 4 doses or times, Stop date: Limited # of times ANES 0 No 0.2 mg, Memoria flumazenil 5-05 Route: l 18:20: IVP, PRN, [place] 00 Dosing Weight 107.1, kg, PRN Benzodiaze pine Reversal, Initial dose, Start date: 12/30/21 13:20:00 CDT, Duration: 30 day, Stop date: 01/29/22 13:19:00 CDT ANES 2021-0 No 0.4 mg, Memoria naloxone 5-05 Route: l 18:20: IVP, [place] 00 Q2MIN, Dosing Weight 107.1, kg, PRN Narcotic Reversal, Start date: 12/30/21 13:20:00 CDT, Duration: 8 doses or times, Stop date: Limited # of times ANES 2022-0 No 2.49 mg, Memoria albuterol -05 Route: l 0.083% 18:20: NEB, [place] inhalation 00 Q20Min, solution Dosing Weight 107.1, kg, PRN Wheezing, Start date: 12/30/21 13:20:00 CDT, Duration: 30 day, Stop date: 01/29/22 13:19:00 CDT ANES No 4 mg, Memoria ondansetron 12-30 Route: l 18:20: IVP, ONCE, Delfino 00 Dosing Weight 107.1, kg, PRN Nausea & Vomiting, Start date: 12/30/21 13:20:00 CDT Lactated No Route: IV, Mem oria Ringers 05 Total l Injection 17:44: Volume: Shelly nn IV (ANES) 00 1,000, 1000 mL Start date: 12/30/21 12:44:00 CDT, Stop date: 12/30/21 13:44:00 CDT Ocuvite Yes PO, Daily, Cayetano butch 5-05 0 l 16:42: Refill(s) [place] NIFEdipine Yes 30 mg = 1 Me moria (Eqv-Adalat 5-05 tab, PO, l CC) 30 mg 16:41: Daily, 0 Herm jayant oral 00 Refill(s) tablet, extended release Isolyte S No 1,000 mL, Mem oria PH 7.4 1000 505 Rate: 75 l mL 16:32: ml/hr, [place] 00 Infuse over: 13.3 hr, Route: IV, Dosing Weight 108.182 kg, Total Volume: 1,000, Start date: 12/30/21 11:32:00 CDT, Duration: 30 day, Stop date: 01/29/22 11:31:00 CDT, BSA: 2.4 m2 acetaminoph No 1,000 mg, M emoria en 505 Route: PO, l 16:32: Drug form: [place] TAB, PRE OP, Dosing Weight 108.182, kg, Priority: NOW, Start date: 12/30/21 11:32:00 CDT, Duration: 1 doses or times traMADol Yes [id number] 100mg Q6H Take 2 UT (Ultram) 50 5-04 tablets Healt h MG tablet 00:00: (100 mg 00 total) by mouth every 6 (six) hours if needed for severe pain. ondansetron 2021-0 Yes [id number] 8mg Take 1 UT (Zofran) 8 5-04 tablet (8 Heal th MG tablet 00:00: mg total) 00 by mouth every 8 (eight) hours if needed for nausea. traMADol 2021-0 Yes [id number] 100mg Q6H Take 2 UT (Ultram) 50 5-04 tablets Healt h MG tablet 00:00: (100 mg 00 total) by mouth every 6 (six) hours if needed for severe pain. ondansetron 2021-0 Yes [id number] 8mg Take 1 UT (Zofran) 8 5-04 tablet (8 Heal th MG tablet 00:00: mg total) 00 by mouth every 8 (eight) hours if needed for nausea. traMADol 2021-0 Yes [id number] 100mg Q6H Take 2 UT (Ultram) 50 5-04 tablets Healt h MG tablet 00:00: (100 mg 00 total) by mouth every 6 (six) hours if needed for severe pain. ondansetron 2021-0 Yes [id number] 8mg Take 1 UT (Zofran) 8 5-04 tablet (8 Heal th MG tablet 00:00: mg total) 00 by mouth every 8 (eight) hours if needed for nausea. traMADol 2021-0 Yes [id number] 100mg Q6H Take 2 UT (Ultram) 50 5-04 tablets Healt h MG tablet 00:00: (100 mg 00 total) by mouth every 6 (six) hours if needed for severe pain. ondansetron 2021-0 Yes [id number] 8mg Take 1 UT (Zofran) 8 5-04 tablet (8 Heal th MG tablet 00:00: mg total) 00 by mouth every 8 (eight) hours if needed for nausea. traMADol 2-0 Yes [id number] 100mg Q6H Take 2 UT (Ultram) 50 5-04 tablets Healt h MG tablet 00:00: (100 mg 00 total) by mouth every 6 (six) hours if needed for severe pain. ondansetron 2021-0 Yes [id number] 8mg Take 1 UT (Zofran) 8 5-04 tablet (8 Heal th MG tablet 00:00: mg total) 00 by mouth every 8 (eight) hours if needed for nausea. traMADol Yes [id number] 100mg Q6H Take 2 UT (Ultram) 50 5-04 tablets Healt h MG tablet 00:00: (100 mg 00 total) by mouth every 6 (six) hours if needed for severe pain. ondansetron Yes [id number] 8mg Take 1 UT (Zofran) 8 5-04 tablet (8 Heal th MG tablet 00:00: mg total) 00 by mouth every 8 (eight) hours if needed for nausea. traMADol Yes [id number] 100mg Q6H Take 2 UT (Ultram) 50 5-04 tablets Healt h MG tablet 00:00: (100 mg 00 total) by mouth every 6 (six) hours if needed for severe pain. ondansetron Yes [id number] 8mg Take 1 UT (Zofran) 8 5-04 tablet (8 Heal th MG tablet 00:00: mg total) 00 by mouth every 8 (eight) hours if needed for nausea. losartan 50 Yes 50 mg = 1 M emoria mg oral 5-03 tab, PO, l tablet 15:52: BID, 0 [place] 00 Refill(s) Prevacid 15 Yes 15 mg = 1 M emoria mg oral 5-03 cap, PO, l delayed 15:51: Daily, 0 Vipin n release 00 Refill(s) capsule gabapentin Yes 300 mg = 1 M emoria 300 mg oral 5-03 cap, PO, l capsule 15:50: QPM, 0 [place] 00 Refill(s) Tresiba Yes 40 unit, Memori a 5-03 SUB-Q, l 15:50: Daily, 0 Delfino 00 Refill(s) carvedilol Yes 25 mg = 1 Me moria 25 mg oral 5-03 tab, PO, l tablet 15:49: BID, 0 Delf[place] 00 Refill(s) atorvastati Yes 80 mg = 1 M emoria n 80 mg 5-03 tab, PO, l oral tablet 15:48: Daily, 0 He rmann 00 Refill(s) aspirin 0 Yes 81 mg, PO, Cayetano butch 5-03 Daily, 0 l 15:48: Refill(s) [place] 00 gabapentin 0 Yes 300mg Take 300 Un mack (NEURONTIN) 4-06 mg by ity of 300 mg 13:01: mouth [place] capsule 34 daily. Medical Branch lansoprazol 0 Yes 15mg Take 15 mg Univers e 4-06 by mouth 2 ity of (PREVACID) 13:01: (two) [place] 15 mg 34 times Medical capsule daily. Branch ascorbic 0 Yes 500mg Take 500 Univ ers acid 4-06 mg by ity of (VITAMIN C) 13:01: mouth [place] 500 mg 34 daily. Medical tablet Branch Docusate Yes [id number] 100mg Take 100 Univers Sodium 100 4-06 [...] 13:01: under the [place] (3 mL) In 34 skin. Medical Inject 20 Branch Units Daily gabapentin 0 Yes 300mg Take 300 Un mack (NEURONTIN) 4-06 mg by ity of 300 mg 13:01: mouth [place] capsule 34 daily. Medical Branch lansoprazol 0 Yes 15mg Take 15 mg Univers e 4-06 by mouth 2 ity of (PREVACID) 13:01: (two) [place] 15 mg 34 times Medical capsule daily. Branch ascorbic 2021-0 Yes 500mg Take 500 Univ ers acid 4-06 mg by ity of (VITAMIN C) 13:01: mouth [place] 500 mg 34 daily. Medical tablet Branch Docusate Yes [id number] 100mg Take 100 Univers Sodium 100 4-06 [...] 34 daily. Medical tablet Branch Docusate Yes [id number] 100mg Take 100 Univers Sodium 100 4-06 [...] every [place] 34 evening. Medical Branch montelukast 2021-0 Yes 10mg Take 10 mg Univers 10 mg 4-06 by mouth. ity of tablet 13:01: [place] 34 Medical Branch insulin 2022-0 Yes 20U inject 20 Unive rs degludec 4-06 Units ity of 200 unit/mL 13:01: under the [place] (3 mL) InPn 34 skin. Medical Inject 20 Branch Units Daily gabapentin 2021-0 Yes 300mg Take 300 Un mack (NEURONTIN) 4-06 mg by ity of 300 mg 13:01: mouth [place] capsule 34 daily. Medical Branch lansoprazol 2021-0 Yes 15mg Take 15 mg Univers e 4-06 by mouth 2 ity of (PREVACID) 13:01: (two) [place] 15 mg 34 times Medical capsule daily. Branch ascorbic 2021-0 Yes 500mg Take 500 Univ ers acid 4-06 mg by ity of (VITAMIN C) 13:01: mouth [place] 500 mg 34 daily. Medical tablet Branch Docusate 2021-0 Yes [id number] 100mg Take 100 Univers Sodium 100 4-06 mg by ity of mg tablet 13:01: mouth [place] 34 daily. Medical Branch dutasteride 2021-0 Yes .5mg Take 0.5 Un mack 0.5 mg 4-06 mg by ity of capsule 13:01: mouth [place] 34 daily. Medical Branch levocetiriz 2021-0 Yes 5mg Take 5 mg U nivers ine 5 mg 4-06 by mouth ity of tablet 13:01: every [place] 34 evening. Medical Branch montelukast 2021-0 Yes 10mg Take 10 mg Univers 10 mg 4-06 by mouth. ity of tablet 13:01: [place] 34 Medical Branch insulin 2021-0 Yes 20U inject 20 Unive rs degludec 4-06 Units ity of 200 unit/mL 13:01: under the [place] (3 mL) InPn 34 skin. Medical Inject 20 Branch Units Daily gabapentin 2021-0 Yes 300mg Take 300 Un mack (NEURONTIN) 4-06 mg by ity of 300 mg 13:01: mouth [place] capsule 34 daily. Medical Branch lansoprazol 2021-0 Yes 15mg Take 15 mg Univers e 4-06 by mouth 2 ity of (PREVACID) 13:01: (two) [place] 15 mg 34 times Medical capsule daily. Branch ascorbic 2021-0 Yes 500mg Take 500 Univ ers acid 4-06 mg by ity of (VITAMIN C) 13:01: mouth [place] 500 mg 34 daily. Medical tablet Branch Docusate 0 Yes [id number] 100mg Take 100 [facility] Sodium 100 4-06 mg by ity of mg tablet 13:01: mouth [place] 34 daily. Medical Branch dutasteride 0 Yes .5mg Take 0.5 Un mack 0.5 mg 4-06 mg by ity of capsule 13:01: mouth [place] 34 daily. Medical Branch levocetiriz 2021-0 Yes 5mg Take 5 mg U nivers ine 5 mg 4-06 by mouth ity of tablet 13:01: every [place] 34 evening. Medical Branch montelukast 2021-0 Yes 10mg Take 10 mg [facility] 10 [...] 34 daily. Medical tablet Branch Docusate Yes [id number] 100mg Take 100 [facility] Sodium 100 4-06 mg by ity of mg tablet 13:01: mouth [place] 34 daily. Medical Branch dutasteride 2021-0 Yes .5mg Take 0.5 Un mcak 0.5 mg 4-06 mg by ity of capsule 13:01: mouth [place] 34 daily. Medical Branch levocetiriz 2021-0 Yes 5mg Take 5 mg U nivers ine 5 mg 4-06 by mouth ity of tablet 13:01: every [place] 34 evening. Medical Branch montelukast 2021-0 Yes 10mg Take 10 mg [facility] 10 mg 4-06 by mouth. ity of tablet 13:01: [place] 34 Medical Branch insulin 2021-0 Yes 20U inject 20 Unive rs degludec 4-06 Units ity of 200 unit/mL 13:01: under the [place] (3 mL) InPn 34 skin. Medical Inject 20 Branch Units Daily gabapentin 2021-0 Yes 300mg Take 300 Un mack (NEURONTIN) 4-06 mg by ity of 300 mg 13:01: mouth [place] capsule 34 daily. Medical Branch lansoprazol 2021-0 Yes 15mg Take 15 mg [facility] e 4-06 by mouth 2 ity of (PREVACID) 13:01: (two) [place] 15 mg 34 times Medical capsule daily. Branch ascorbic 2021-0 Yes 500mg Take 500 [facility] ers acid 4-06 mg by ity of (VITAMIN C) 13:01: mouth [place] 500 mg 34 daily. Medical tablet Branch Docusate 2021-0 Yes [id number] 100mg Take 100 [facility] Sodium 100 4-06 mg by ity of mg tablet 13:01: mouth [place] 34 daily. Medical Branch dutasteride 2021-0 Yes .5mg Take 0.5 Un mack 0.5 mg 4-06 mg by ity of capsule 13:01: mouth [place] 34 daily. Medical Branch levocetiriz 2021-0 Yes 5mg Take 5 mg U nivers ine 5 mg 4-06 by mouth ity of tablet 13:01: every [place] 34 evening. Medical Branch montelukast 2021-0 Yes 10mg Take 10 mg [facility] 10 mg 4-06 by mouth. ity of tablet 13:01: [place] 34 Medical Branch insulin 2021-0 Yes 20U inject 20 Unive rs degludec 4-06 Units ity of 200 unit/mL 13:01: under the [place] (3 mL) InPn 34 skin. Medical Inject 20 Branch Units Daily gabapentin 2021-0 Yes 300mg Take 300 Un mack (NEURONTIN) 4-06 mg by ity of 300 mg 13:01: mouth [place] capsule 34 daily. Medical Branch lansoprazol 2021-0 Yes 15mg Take 15 mg [facility] e 4-06 by mouth 2 ity of (PREVACID) 13:01: (two) [place] 15 mg 34 times Medical capsule daily. Branch ascorbic 2021-0 Yes 500mg Take 500 [facility] ers acid 4-06 mg by ity of (VITAMIN C) 13:01: mouth [place] 500 mg 34 daily. Medical tablet Branch Docusate 0 Yes [id number] 100mg Take 100 [facility] Sodium 100 4-06 mg by ity of mg tablet 13:01: mouth [place] 34 daily. Medical Branch dutasteride 0 Yes .5mg Take 0.5 Un mack 0.5 mg 4-06 mg by ity of capsule 13:01: mouth [place] 34 daily. Medical Branch levocetiriz 2021-0 Yes 5mg Take 5 mg U nivers ine 5 mg 4-06 by mouth ity of tablet 13:01: every [place] 34 evening. Medical Branch montelukast 2021-0 Yes 10mg Take 10 mg [facility] 10 [...] 34 daily. Medical tablet Branch Docusate Yes [id number] 100mg Take 100 [facility] Sodium 100 4-06 mg by ity of mg tablet 13:01: mouth [place] 34 daily. Medical Branch dutasteride 0 Yes .5mg Take 0.5 Un mack 0.5 mg 4-06 mg by ity of capsule 13:01: mouth [place] 34 daily. Medical Branch levocetiriz 2021-0 Yes 5mg Take 5 mg U nivers ine 5 mg 4-06 by mouth ity of tablet 13:01: every [place] 34 evening. Medical Branch montelukast 2021-0 Yes 10mg Take 10 mg [facility] 10 mg 4-06 by mouth. ity of tablet 13:01: [place] 34 Medical Branch insulin 2022-0 Yes 20U inject 20 Unive rs degludec [...] 34 daily. Medical tablet Branch Docusate Yes [id number] 100mg Take 100 [facility] Sodium 100 4-06 [...] 20 Branch Units Daily ezetimibe 0 Yes [id number] 10mg Take 1 U nivers 10 mg 4-06 tablet by ity of tablet 00:00: mouth [place] 00 daily. Medical Branch atorvastati 0 Yes [id number] 80mg Take 1 [facility] n 80 mg 4-06 tablet by ity of tablet 00:00: mouth [place] 00 daily. Medical Branch carvediloL 0 Yes [id number] 25mg Take 1 [facility] 25 mg 4-06 tablet by ity of tablet 00:00: mouth 2 [place] 00 (two) Medical times Branch daily. NIFEdipine 2021-0 Yes [id number] 30mg Take 1 [facility] XL 30 mg 24 4-06 tablet by ity of hr tablet 00:00: mouth (two) Medical times Branch daily. ezetimibe 2021-0 Yes [id number] 10mg Take 1 U nivers 10 mg 4-06 tablet by ity of tablet 00:00: mouth [place] 00 daily. Medical Branch atorvastati 2021-0 Yes [id number] 80mg Take 1 [facility] n 80 mg 4-06 tablet by ity of tablet 00:00: mouth [place] 00 daily. Medical Branch carvediloL 0 Yes [id number] 25mg Take 1 [facility] 25 mg 4-06 tablet by ity of tablet 00:00: mouth (two) Medical times Branch daily. NIFEdipine 2021-0 Yes [id number] 30mg Take 1 [facility] XL 30 mg 24 4-06 tablet by ity of hr tablet 00:00: mouth (two) Medical times Branch daily. ezetimibe 2021-0 Yes [id number] 10mg Take 1 U nivers 10 mg 4-06 tablet by ity of tablet 00:00: mouth 00 daily. Medical Branch atorvastati 0 Yes [id number] 80mg Take 1 [facility] n 80 mg 4-06 tablet by ity of tablet 00:00: mouth [place] 00 daily. Medical Branch carvediloL 2021-0 Yes [id number] 25mg Take 1 [facility] 25 mg 4-06 tablet by ity of tablet 00:00: mouth (two) Medical times Branch daily. NIFEdipine 2021-0 Yes [id number] 30mg Take 1 [facility] XL 30 mg 24 4-06 tablet by ity of hr tablet 00:00: mouth (two) Medical times Branch daily. ezetimibe 2021-0 Yes [id number] 10mg Take 1 U nivers 10 mg 4-06 tablet by ity of tablet 00:00: mouth [place] 00 daily. Medical Branch atorvastati 2021-0 Yes [id number] 80mg Take 1 [facility] n 80 mg 4-06 tablet by ity of tablet 00:00: mouth [place] 00 daily. Medical Branch carvediloL 2021-0 Yes [id number] 25mg Take 1 [facility] 25 mg 4-06 tablet by ity of tablet 00:00: mouth (two) Medical times Branch daily. NIFEdipine 2021-0 Yes [id number] 30mg Take 1 [facility] XL 30 mg 24 4-06 tablet by ity of hr tablet 00:00: mouth 2 (two) Medical times Branch daily. ezetimibe 2021-0 Yes [id number] 10mg Take 1 U nivers 10 mg 4-06 tablet by ity of tablet 00:00: mouth [place] 00 daily. Medical Branch atorvastati 2021-0 Yes [id number] 80mg Take 1 [facility] n 80 mg 4-06 tablet by ity of tablet 00:00: mouth [place] 00 daily. Medical Branch carvediloL 2021-0 Yes [id number] 25mg Take 1 [facility] 25 mg 4-06 tablet by ity of tablet 00:00: mouth (two) Medical times Branch daily. NIFEdipine 2021-0 Yes [id number] 30mg Take 1 [facility] XL 30 mg 24 4-06 tablet by ity of hr tablet 00:00: mouth (two) Medical times Branch daily. ezetimibe 2021-0 Yes [id number] 10mg Take 1 U nivers 10 mg 4-06 tablet by ity of tablet 00:00: mouth [place] 00 daily. Medical Branch atorvastati 0 Yes [id number] 80mg Take 1 [facility] n 80 mg 4-06 tablet by ity of tablet 00:00: mouth [place] 00 daily. Medical Branch carvediloL 2021-0 Yes [id number] 25mg Take 1 [facility] 25 mg 4-06 tablet by ity of tablet 00:00: mouth (two) Medical times Branch daily. NIFEdipine 2021-0 Yes [id number] 30mg Take 1 [facility] XL 30 mg 24 4-06 tablet by ity of hr tablet 00:00: mouth 2 (two) Medical times Branch daily. ezetimibe 2021-0 Yes [id number] 10mg Take 1 U nivers 10 mg 4-06 tablet by ity of tablet 00:00: mouth [place] 00 daily. Medical Branch atorvastati 2021-0 Yes [id number] 80mg Take 1 [facility] n 80 mg 4-06 tablet by ity of tablet 00:00: mouth [place] 00 daily. Medical Branch carvediloL 0 Yes [id number] 25mg Take 1 [facility] 25 mg 4-06 tablet by ity of tablet 00:00: mouth 2 (two) Medical times Branch daily. NIFEdipine 2021-0 Yes [id number] 30mg Take 1 [facility] XL 30 mg 24 4-06 tablet by ity of hr tablet 00:00: mouth 2 (two) Medical times Branch daily. ezetimibe 0 Yes [id number] 10mg Take 1 U nivers 10 mg 4-06 tablet by ity of tablet 00:00: mouth [place] 00 daily. Medical Branch atorvastati 0 Yes [id number] 80mg Take 1 [facility] n 80 mg 4-06 tablet by ity of tablet 00:00: mouth [place] 00 daily. Medical Branch carvediloL 0 Yes [id number] 25mg Take 1 [facility] 25 mg 4-06 tablet by ity of tablet 00:00: mouth (two) Medical times Branch daily. ezetimibe 0 Yes [id number] 10mg Take 1 U nivers 10 mg 4-06 tablet by ity of tablet 00:00: mouth [place] 00 daily. Medical Branch atorvastati 0 Yes [id number] 80mg Take 1 [facility] n 80 mg 4-06 tablet by ity of tablet 00:00: mouth [place] 00 daily. Medical Branch carvediloL 0 Yes [id number] 25mg Take 1 [facility] 25 mg 4-06 tablet by ity of tablet 00:00: mouth (two) Medical times Branch daily. ezetimibe 0 Yes [id number] 10mg Take 1 U nivers 10 mg 4-06 tablet by ity of tablet 00:00: mouth [place] 00 daily. Medical Branch atorvastati 0 Yes [id number] 80mg Take 1 [facility] n 80 mg 4-06 tablet by ity of tablet 00:00: mouth [place] 00 daily. Medical Branch carvediloL 0 Yes [id number] 25mg Take 1 [facility] 25 mg 4-06 tablet by ity of tablet 00:00: mouth 2 00 (two) Medical times Branch daily. NIFEdipine 2021-2021- No [id number] 30mg Take 1 [facility] XL 30 mg 24 4-06 12-07 tablet by it y of hr tablet 00:00: 00:00 mouth 2 [place] :[place] (two) Medical times Branch daily. NIFEdipine 2021- No 30mg Take 30 mg [facility] XL 30 mg 24 11-17 by mouth ity of hr tablet 00:00: 00:00 daily. [place] 00 :00 Medical Branch aspirin 81 2021-0 Yes (Prior [facility] chewable 3-18 Auth: Rx Heal th tablet 09:54: Ref#:[id number]) Fluticasone 2021-0 Yes (Prior [facility] -Umeclidin- 3-18 Auth: Rx Heal th Vilant 09:54: [facility][id number] [facility] [id number][facility] Ellipta) 100-62.5-25 MCG/INH aerosol powder lansoprazol 2021-0 Yes 15mg Take 15 mg [facility] e 3-18 by mouth. Health (Prevacid) 09:54: [address] 58 capsule montelukast 2021-0 Yes 10mg Take 10 mg [facility] (Singulair) 3-18 by mouth. Hea lth 10 MG 09:54: tablet 58 aspirin 81 2021-0 Yes (Prior [facility] MG chewable 3-18 Auth: Rx Heal th tablet 09:54: Ref#:[id number]) Fluticasone 2021-0 Yes (Prior [facility] -Umeclidin- 3-18 Auth: Rx Heal th Vilant 09:54: Ref[facility][id number] [facility] [id number][facility] Ellipta) 100-62.5-25 MCG/INH aerosol powder lansoprazol 2021-0 Yes 15mg Take 15 mg [facility] e 3-18 by mouth. Health (Prevacid) 09:54: [address] 58 capsule montelukast 2021-0 Yes 10mg Take 10 mg [facility] (Singulair) 3-18 by mouth. Hea lth 10 MG 09:54: tablet 58 aspirin 81 2021-0 Yes (Prior [facility] MG chewable 3-18 Auth: Rx Heal th tablet 09:54: Ref#:[id number]) Fluticasone 202-0 Yes (Prior [facility] -Umeclidin- 3-18 Auth: Rx Heal th Vilant 09:54: Ref#:[id number] ([facility] 58 [id number]) Ellipta) 100-62.5-25 MCG/INH aerosol powder lansoprazol 2022-0 Yes 15mg Take 15 mg [facility] e 3-18 by mouth. Health (Prevacid) 09:54: [address] 58 capsule montelukast 2022-0 Yes 10mg Take 10 mg [facility] (Singulair) 3-18 by mouth. Hea lth 10 MG 09:54: tablet 58 aspirin 81 2-0 Yes (Prior [facility] MG chewable 3-18 Auth: Rx Heal th tablet 09:54: Ref#:[id number]) Fluticasone 2022-0 Yes (Prior [facility] -Umeclidin- 3-18 Auth: Rx Heal th Vilant 09:54: Ref#:[id number] ([facility] 58 [id number]) Ellipta) 100-62.5-25 MCG/INH aerosol powder lansoprazol 2022-0 Yes 15mg Take 15 mg [facility] e 3-18 by mouth. Health (Prevacid) 09:54: [address] 58 capsule montelukast 2022-0 Yes 10mg Take 10 mg [facility] (Singulair) 3-18 by mouth. Hea lth 10 MG 09:54: tablet 58 aspirin 81 2-0 Yes (Prior [facility] MG chewable 3-18 Auth: Rx Heal th tablet 09:54: Ref#:[id number]) Fluticasone 2-0 Yes (Prior [facility] -Umeclidin- 3-18 Auth: Rx Heal th Vilant 09:54: Ref#:[id number] ([facility] 58 [id number]) Ellipta) 100-62.5-25 MCG/INH aerosol powder lansoprazol 2022-0 Yes 15mg Take 15 mg [facility] e 3-18 by mouth. Health (Prevacid) 09:54: [address] 58 capsule montelukast 2022-0 Yes 10mg Take 10 mg [facility] (Singulair) 3-18 by mouth. Hea lth 10 MG 09:54: tablet 58 aspirin 81 2-0 Yes (Prior [facility] MG chewable 3-18 Auth: Rx Heal th tablet 09:54: Ref#:[id number]) Fluticasone 2022-0 Yes (Prior [facility] -Umeclidin- 3-18 Auth: Rx Heal th Vilant 09:54: Ref#:[id number] ([facility] 58 [id number]) Ellipta) 100-62.5-25 MCG/INH aerosol powder lansoprazol 2022-0 Yes 15mg Take 15 mg [facility] e 3-18 by mouth. Health (Prevacid) 09:54: [address] 58 capsule montelukast 2022-0 Yes 10mg Take 10 mg [facility] (Singulair) 3-18 by mouth. Hea lth 10 MG 09:54: tablet 58 aspirin 81 2-0 Yes (Prior [facility] MG chewable 3-18 Auth: Rx Heal th tablet 09:54: Ref#:[id number]) Fluticasone 2022-0 Yes (Prior [facility] -Umeclidin- 3-18 Auth: Rx Heal Vilant 09:54: Ref#:[id number] ([facility] 58 [id number]) Ellipta) 100-62.5-25 MCG/INH aerosol powder lansoprazol 2022-0 Yes 15mg Take 15 mg [facility] e 3-18 by mouth. Health (Prevacid) 09:54: [address] 58 capsule montelukast 2022-0 Yes 10mg Take 10 mg [facility] (Singulair) 3-18 by mouth. Hea lth 10 MG 09:54: tablet 58 aspirin 81 2-0 Yes (Prior [facility] MG chewable 3-18 Auth: Rx Heal th tablet 09:54: Ref#:[id number]) Fluticasone 2022-0 Yes (Prior [facility] -Umeclidin- 3-18 Auth: Rx Heal Vilant 09:54: Ref#:[id number] ([facility] 58 [id number]) Ellipta) 100-62.5-25 MCG/INH aerosol powder lansoprazol 2022-0 Yes 15mg Take 15 mg [facility] e 3-18 by mouth. Health (Prevacid) 09:54: [address] 58 capsule montelukast 2022-0 Yes 10mg Take 10 mg [facility] (Singulair) 3-18 by mouth. Hea lth 10 MG 09:54: tablet 58 aspirin 81 2-0 Yes (Prior [facility] MG chewable 3-18 Auth: Rx Heal th tablet 09:54: Ref#:[id number]) Fluticasone 2022-0 Yes (Prior [facility] -Umeclidin- 318 Auth: Rx Heal th Vilant 09:54: Ref#:[id number] ([facility] 58 [id number]) Ellipta) 100-62.5-25 MCG/INH aerosol powder lansoprazol 2021-0 Yes 15mg Take 15 mg [facility] e 3-18 by mouth. Health (Prevacid) 09:54: [address] 58 capsule montelukast 0 Yes 10mg Take 10 mg [facility] (Singulair) 3-18 by mouth. Hea lth 10 MG 09:54: tablet 58 aspirin 81 0 Yes (Prior [facility] MG chewable 3-18 Auth: Rx Heal th tablet 09:54: Ref#:[id number]) Fluticasone 2021-0 Yes (Prior [facility] -Umeclidin- 318 Auth: Rx Heal th Vilant 09:54: Ref#:[id number] ([facility] 58 [id number]) Ellipta) 100-62.5-25 MCG/INH aerosol powder lansoprazol 2021-0 Yes 15mg Take 15 mg [facility] e 3-18 by mouth. Health (Prevacid) 09:54: [address] 58 capsule montelukast 0 Yes 10mg Take 10 mg UT (Singulair) [...] AT THE SAME TIME EACH DAY. Tresiba 0 Yes INJECT 55 UT FlexTouch 3-11 UNITS Health 200 UNIT/ML 00:00: SUBCUTANEO injection 00 USLY ONCE DAILY AT THE SAME TIME EACH DAY. Tresiba 0 Yes INJECT 55 UT FlexTouch 3-11 UNITS Health 200 UNIT/ML 00:00: SUBCUTANEO injection 00 USLY ONCE DAILY AT THE SAME TIME EACH DAY. Tresiba 0 Yes INJECT 55 UT FlexTouch 3-11 UNITS [...] AT THE SAME TIME EACH DAY. losartan 0 Yes UT (Cozaar) 50 1-06 Health MG tablet 00:00: 00 losartan 2021-0 Yes [facility] (Cozaar) 50 1-06 Health MG tablet 00:00: 00 losartan 2021-0 Yes UT (Cozaar) 50 1-06 Health MG tablet 00:00: 00 losartan 2-0 Yes [facility] (Cozaar) 50 1-06 Health MG tablet 00:00: 00 losartan 2-0 Yes UT (Cozaar) 50 1-06 Health MG tablet 00:00: 00 losartan 2-0 Yes UT (Cozaar) 50 1-06 Health MG tablet 00:00: 00 losartan 2-0 Yes [facility] (Cozaar) 50 1-06 Health MG tablet 00:00: 00 losartan 2-0 Yes UT (Cozaar) 50 1-06 Health MG tablet 00:00: 00 losartan 2-0 Yes [facility] (Cozaar) 50 1-06 Health MG tablet 00:00: 00 losartan 2-0 Yes [facility] (Cozaar) 50 1-06 Health MG tablet 00:00: 00 losartan 50 2-0 Yes 50mg Take 50 mg [facility] mg tablet 1-06 by mouth 2 ity of 00:00: (two) [place] 00 times Medical daily. Branch losartan 50 2-0 Yes 50mg Take 50 mg [facility] mg tablet 1-06 by mouth 2 ity of 00:00: (two) [place] 00 times Medical daily. Branch losartan 50 2-0 Yes 50mg Take 50 mg [facility] mg tablet 1-06 by mouth 2 ity of 00:00: (two) [place] 00 times Medical daily. Branch losartan 50 2-0 Yes 50mg Take 50 mg [facility] mg tablet 1-06 by mouth 2 ity of 00:00: (two) [place] 00 times Medical daily. Branch losartan 50 2-0 Yes 50mg Take 50 mg [facility] mg tablet 1-06 by mouth 2 ity of 00:00: (two) [place] 00 times Medical daily. Branch losartan 50 2-0 Yes 50mg Take 50 mg [facility] mg tablet 1-06 by mouth 2 ity of 00:00: (two) [place] 00 times Medical daily. Branch losartan 50 2-0 Yes 50mg Take 50 mg [facility] mg tablet 1-06 by mouth 2 ity of 00:00: (two) [place] 00 times Medical daily. Branch losartan 50 2-0 Yes 50mg Take 50 mg [facility] mg tablet 1-06 by mouth 2 ity of 00:00: (two) [place] 00 times Medical daily. Branch losartan 50 2-0 Yes 50mg Take 50 mg [facility] mg tablet 1-06 by mouth 2 ity of 00:00: (two) [place] 00 times Medical daily. Branch losartan 50 2-0 Yes 50mg Take 50 mg [facility] mg tablet 1-06 by mouth 2 ity of 00:00: (two) [place] 00 times Medical daily. Branch gabapentin 2-0 Yes TAKE ONE [facility] (Neurontin) 1-04 (1) Health 300 MG 00:00: CAPSULE(S) capsule 00 BY MOUTH TWICE A DAY AT 12 HOUR INTERVALS. gabapentin 2022-0 Yes TAKE ONE [facility] (Neurontin) 1-04 (1) Health 300 MG 00:00: CAPSULE(S) capsule 00 BY MOUTH TWICE A DAY AT 12 HOUR INTERVALS. gabapentin 2022-0 Yes TAKE ONE [facility] (Neurontin) 1-04 (1) Health 300 MG 00:00: CAPSULE(S) capsule 00 BY MOUTH TWICE A DAY AT 12 HOUR INTERVALS. gabapentin 2022-0 Yes TAKE ONE [facility] (Neurontin) 1-04 (1) [...] gabapentin 2021-0 Yes TAKE ONE [facility] (Neurontin) -04 (1) Health 300 MG 00:00: CAPSULE(S) capsule 00 BY MOUTH TWICE A DAY AT 12 HOUR INTERVALS. gabapentin 2021-0 Yes TAKE ONE [facility] (Neurontin) -04 (1) Health 300 MG 00:00: CAPSULE(S) capsule 00 BY MOUTH TWICE A DAY AT 12 HOUR INTERVALS. atorvastati 2021-0 Yes UT n (Lipitor) 1- [...] 00 atorvastati 2021-0 Yes UT n (Lipitor) 08-28 Health 80 MG 00:00: tablet 00 carvedilol 2021-0 Yes UT (Coreg) 25 08-28 Health MG tablet 00:00: 00 atorvastati 2021-0 Yes [facility] n (Lipitor) 08-28 Health 80 MG 00:00: tablet 00 carvedilol 2021-0 Yes UT (Coreg) 25 08-28 Health MG tablet 00:00: 00 atorvastati 2021-0 Yes [facility] n (Lipitor) 08-28 Health 80 MG 00:00: tablet 00 carvedilol 2021-0 Yes UT (Coreg) 25 08-28 Health MG tablet 00:00: 00 atorvastati 2021-0 Yes [facility] n (Lipitor) 08-28 Health 80 MG 00:00: tablet 00 carvedilol 2021-0 Yes UT (Coreg) 25 08-28 Health MG tablet 00:00: 00 atorvastati 2021-0 Yes [facility] n (Lipitor) 08-28 Health 80 MG 00:00: tablet 00 carvedilol 2021-0 Yes UT (Coreg) 25 08-28 Health MG tablet 00:00: 00 atorvastati 2021-0 Yes UT n (Lipitor) 08-28 Health 80 MG 00:00: tablet 00 carvedilol 2021-0 Yes [facility] (Coreg) 25 08-28 Health MG tablet 00:00: 00 atorvastati 2021-0 2021- No 80mg Take 80 mg [facility] n 80 mg 08-28 by mouth ity of tablet 00:00: 00:00 daily. [place] 00 :00 Medical Branch carvediloL 0 2021- No 25mg Take 25 mg [facility] 25 mg 08-28 by mouth 2 ity of tablet 00:00: 00:00 (two) [place] 00 :00 times Medical daily. Branch albuterol Yes [id number] 2{puff} Inhale 2 Univers 90 5-16 Puffs ity of mcg/actuati 00:00: every 4 [place] as on inhaler 00 (four) Medical hours as Branch needed for Wheezing or Shortness of Breath. albuterol Yes [id number] 2{puff} Inhale 2 Univers 90 5-16 Puffs ity of mcg/actuati 00:00: every 4 [place] as on inhaler 00 (four) Medical hours as Branch needed for Wheezing or Shortness of Breath. albuterol Yes [id number] 2{puff} Inhale 2 Univers 90 5-16 Puffs ity of mcg/actuati 00:00: every 4 [place] as on inhaler 00 (four) Medical hours as Branch needed for Wheezing or Shortness of Breath. albuterol Yes [id number] 2{puff} Inhale 2 Univers 90 5-16 Puffs ity of mcg/actuati 00:00: every 4 [place] as on inhaler 00 (four) Medical hours as Branch needed for Wheezing or Shortness of Breath. albuterol Yes [id number] 2{puff} Inhale 2 Univers 90 5-16 Puffs ity of mcg/actuati 00:00: every 4 [place] as on inhaler 00 (four) Medical hours as Branch needed for Wheezing or Shortness of Breath. albuterol Yes [id number] 2{puff} Inhale 2 Univers 90 5-16 Puffs ity of mcg/actuati 00:00: every 4 [place] as on inhaler 00 (four) Medical hours as Branch needed for Wheezing or Shortness of Breath. albuterol Yes [id number] 2{puff} Inhale 2 Univers 90 5-16 Puffs ity of mcg/actuati 00:00: every 4 [place] as on inhaler 00 (four) Medical hours as Branch needed for Wheezing or Shortness of Breath. albuterol Yes [id number] 2{puff} Inhale 2 Univers 90 5-16 Puffs ity of mcg/actuati 00:00: every 4 [place] as on inhaler 00 (four) Medical hours as Branch needed for Wheezing or Shortness of Breath. albuterol Yes [id number] 2{puff} Inhale 2 Univers 90 5-16 Puffs ity of mcg/actuati 00:00: every 4 [place] as on inhaler 00 (four) Medical hours as Branch needed for Wheezing or Shortness of Breath. albuterol Yes [id number] 2{puff} Inhale 2 Univers 90 5-16 Puffs ity of mcg/actuati 00:00: every 4 [place] as on inhaler 00 (four) Medical hours as Branch needed for Wheezing or Shortness of Breath. buPROPion 2020-0 Yes [id number] 150mg Take 1 U nivers SR 150 mg 4-20 tablet by ity o f SR tablet 00:00: [facility] [place] (two) Medical times Branch daily. buPROPion 2020-0 Yes [id number] 150mg Take 1 U nivers SR 150 mg 4-20 tablet by ity o f SR tablet 00:00: [facility] (two) Medical times Branch daily. buPROPion 2020-0 Yes [id number] 150mg Take 1 U nivers SR 150 mg 4-20 tablet by ity o f SR tablet 00:00: [facility] [place] (two) Medical times Branch daily. buPROPion 2020-0 Yes [id number] 150mg Take 1 U nivers SR 150 mg 4-20 tablet by ity o f SR tablet 00:00: [facility] [place] (two) Medical times Branch daily. buPROPion 2020-0 Yes [id number] 150mg Take 1 U nivers SR 150 mg 4-20 tablet by ity o f SR tablet 00:00: [facility] [place] (two) Medical times Branch daily. buPROPion 2020-0 Yes [id number] 150mg Take 1 U nivers SR 150 mg 4-20 tablet by ity o f SR tablet 00:00: [facility] [place] (two) Medical times Branch daily. buPROPion 2020-0 Yes [id number] 150mg Take 1 U nivers SR 150 mg 4-20 tablet by ity o f SR tablet 00:00: [facility] [place] (two) Medical times Branch daily. buPROPion 2020-0 Yes [id number] 150mg Take 1 U nivers SR 150 mg 4-20 tablet by ity o f SR tablet 00:00: [facility] [place] (two) Medical times Branch daily. buPROPion 2021-0 Yes [id number] 150mg Take 1 U nivers SR 150 mg 4-20 tablet by ity o f SR tablet 00:00: [facility] [place] (two) Medical times Branch daily. buPROPion 2020-0 Yes [id number] 150mg Take 1 U nivers SR 150 mg 4-20 tablet by ity o f SR tablet 00:00: mouth 2 [place] 00 (two) Medical times Branch daily. tamsulosin 2021-0 Yes Take by Univ ers 0.4 mg 24 4-01 mouth ity of hr capsule 13:12: daily. [place] 40 Take 1 Medical capsule Branch half hour after PM meal tamsulosin 2021-0 Yes Take by Univ ers 0.4 mg 24 4-01 mouth ity of hr capsule 13:12: daily. [place] 40 Take 1 Medical capsule Branch half hour after PM meal tamsulosin 2021-0 Yes Take by Univ ers 0.4 mg 24 4-01 mouth ity of hr capsule 13:12: daily. [place] 40 Take 1 Medical capsule Branch half hour after PM meal tamsulosin 2021-0 Yes Take by Univ ers 0.4 mg 24 4-01 mouth ity of hr capsule 13:12: daily. [place] 40 Take 1 Medical capsule Branch half hour after PM meal tamsulosin 2021-0 Yes Take by Univ ers 0.4 mg 24 4-01 mouth ity of hr capsule 13:12: daily. [place] 40 Take 1 Medical capsule Branch half hour after PM meal tamsulosin 2021-0 Yes Take by Univ ers 0.4 mg 24 4-01 mouth ity of hr capsule 13:12: daily. [place] 40 Take 1 Medical capsule Branch half hour after PM meal tamsulosin 2021-0 Yes Take by Univ ers 0.4 mg 24 4-01 mouth ity of hr capsule 13:12: daily. [place] 40 Take 1 Medical capsule Branch half hour after PM meal tamsulosin 2021-0 Yes Take by Univ ers 0.4 mg 24 4-01 mouth ity of hr capsule 13:12: daily. [place] 40 Take 1 Medical capsule Branch half hour after PM meal tamsulosin 2021-0 Yes Take by Univ ers 0.4 mg 24 4-01 mouth ity of hr capsule 13:12: daily. [place] 40 Take 1 Medical capsule Branch half hour after PM meal tamsulosin 2021-0 Yes Take by Univ ers 0.4 mg 24 4-01 mouth ity of hr capsule 13:12: daily. [place] 40 Take 1 Medical capsule Branch half hour after PM meal INCONTROL 2019- Yes USE ONCE Univ ers PEN NEEDLE 0-29 DAILY E ity of 31 gauge x 00:00: 11.9. [place] 316" Ndle 00 Medical Branch INCONTROL 2019- Yes USE ONCE Univ ers PEN NEEDLE 0-29 DAILY E ity of 31 gauge x 00:00: 11.9. [place] 11/10" Nd Medical Branch INCONTROL 2019- Yes USE ONCE Univ ers PEN NEEDLE 0-29 DAILY E ity of 31 gauge x 00:00: 11.9. 11/10" Nd Medical Branch INCONTROL 2019- Yes USE ONCE Univ ers PEN NEEDLE 0-29 DAILY E ity of 31 gauge x 00:00: 11.9. [place] 11/10" Nd Medical Branch INCONTROL 2019- Yes USE ONCE Univ ers PEN NEEDLE 0-29 DAILY E ity of 31 gauge x 00:00: 11.9. [place] 11/10" Nd Medical Branch INCONTROL 2019- Yes USE ONCE Univ ers PEN NEEDLE 0-29 DAILY E ity of 31 gauge x 00:00: 11.9. [place] 11/10" Nd Medical Branch INCONTROL 2019- Yes USE ONCE Univ ers PEN NEEDLE 0-29 DAILY E ity of 31 gauge x 00:00: 11.9. [place] 11/10" Nd Medical Branch INCONTROL 2019- Yes USE ONCE Univ ers PEN NEEDLE 0-29 DAILY E ity of 31 gauge x 00:00: 11.9. [place] 11/10" Nd Medical Branch INCONTROL 2019- Yes USE ONCE Univ ers PEN NEEDLE 0-29 DAILY E ity of 31 gauge x 00:00: 11.9. [place] 11/10" Nd Medical Branch INCONTROL 2019- Yes USE ONCE Univ ers PEN NEEDLE 0-29 DAILY E ity of 31 gauge x 00:00: 11.9. [place] 11/10" Ndle [facility] Branch tramadol-ac 2019- Yes [id number] 1{tbl} Take 1 Univers etaminophen 6-08 tablet by ity of 37.5-325 mg 00:00: mouth 2 [place] as per tablet 00 (two) Medical times Branch daily as needed for Pain. tramadol-ac Yes [id number] 1{tbl} Take 1 [facility] etaminophen 6-08 tablet by ity of 37.5-325 mg 00:00: mouth 2 [place] as per tablet 00 (two) Medical times Branch daily as needed for Pain. tramadol-ac Yes [id number] 1{tbl} Take 1 [facility] etaminophen 6-08 tablet by ity of 37.5-325 mg 00:00: mouth 2 [place] as per tablet 00 (two) Medical times Branch daily as needed for Pain. tramadol-ac 0 Yes [id number] 1{tbl} Take 1 [facility] etaminophen 6-08 tablet by ity of 37.5-325 mg 00:00: mouth 2 [place] as per tablet 00 (two) Medical times Branch daily as needed for Pain. tramadol-ac Yes [id number] 1{tbl} Take 1 [facility] etaminophen 6-08 tablet by ity of 37.5-325 mg 00:00: mouth 2 [place] as per tablet 00 (two) Medical times Branch daily as needed for Pain. tramadol-ac Yes [id number] 1{tbl} Take 1 [facility] etaminophen 6-08 tablet by ity of 37.5-325 mg 00:00: mouth 2 [place] as per tablet 00 (two) Medical times Branch daily as needed for Pain. tramadol-ac Yes [id number] 1{tbl} Take 1 [facility] etaminophen 6-08 tablet by ity of 37.5-325 mg 00:00: mouth 2 [place] as per tablet 00 (two) Medical times Branch daily as needed for Pain. tramadol-ac 0 Yes [id number] 1{tbl} Take 1 Univers etaminophen 6-08 tablet by ity of 37.5-325 mg 00:00: mouth 2 [place] as per tablet 00 (two) Medical times Branch daily as needed for Pain. tramadol-ac Yes [id number] 1{tbl} Take 1 [facility] etaminophen 6-08 tablet by ity of 37.5-325 mg 00:00: mouth 2 [place] as per tablet 00 (two) Medical times Branch daily as needed for Pain. tramadol-ac Yes [id number] 1{tbl} Take 1 Univers etaminophen 6-08 tablet by ity of 37.5-325 mg 00:00: mouth 2 [place] as per tablet 00 (two) Medical times Branch daily as needed for Pain. nicotine Yes [id number] 1{puff} Inhale 1 Univers (NICOTROL) 2-07 Puff as ity of 10 mg 00:00: needed for [place] inhaler 00 Smoking Medical cessation. [place] nicotine 2020-0 Yes [id number] 1{puff} Inhale 1 Univers (NICOTROL) 2-07 Puff as ity of 10 mg 00:00: needed for [place] inhaler 00 Smoking Medical cessation. Branch nicotine 2020-0 Yes [id number] 1{puff} Inhale 1 Univers (NICOTROL) 2-07 Puff as ity of 10 mg 00:00: needed for [place] inhaler 00 Smoking Medical cessation. Branch nicotine 2020-0 Yes [id number] 1{puff} Inhale 1 Univers (NICOTROL) 2-07 Puff as ity of 10 mg 00:00: needed for [place] inhaler 00 Smoking Medical cessation. [place] nicotine 2020-0 Yes [id number] 1{puff} Inhale 1 Univers (NICOTROL) 2-07 Puff as ity of 10 mg 00:00: needed for [place] inhaler 00 Smoking Medical cessation. [place] nicotine 2020-0 Yes [id number] 1{puff} Inhale 1 Univers (NICOTROL) 2-07 Puff as ity of 10 mg 00:00: needed for [place] inhaler 00 Smoking Medical cessation. [place] nicotine 2020-0 Yes [id number] 1{puff} Inhale 1 Univers (NICOTROL) 2-07 Puff as ity of 10 mg 00:00: needed for [place] inhaler 00 Smoking Medical cessation. [place] nicotine 2020-0 Yes [id number] 1{puff} Inhale 1 Univers (NICOTROL) 2-07 Puff as ity of 10 mg 00:00: needed for [place] inhaler 00 Smoking Medical cessation. Branch nicotine 2020-0 Yes [id number] 1{puff} Inhale 1 Univers (NICOTROL) 2-07 Puff as ity of 10 mg 00:00: needed for [place] inhaler 00 Smoking Medical cessation. [place] nicotine 2020-0 Yes [id number] 1{puff} Inhale 1 Univers (NICOTROL) 2-07 Puff as ity of 10 mg 00:00: needed for [place] inhaler 00 Smoking Medical cessation. [place] fluticasone 2020-0 Yes 1{puff} Inhale 1 Univers -umeclidin- 1-30 Puff ity of vilanter 00:00: daily. [place] ([address]) Branch 100-62.5-25 mcg DsDv fluticasone 2020-0 Yes 1{puff} Inhale 1 Univers -umeclidin- 1-30 Puff ity of vilanter 00:00: daily. [place] ([address]) Branch 100-62.5-25 mcg DsDv fluticasone 2020-0 Yes 1{puff} Inhale 1 Univers -umeclidin- 1-30 Puff ity of vilanter 00:00: daily. [place] ([address]) Branch 100-62.5-25 mcg DsDv fluticasone 2020-0 Yes 1{puff} Inhale 1 Univers -umeclidin- 1-30 Puff ity of vilanter 00:00: daily. [place] ([address]) Branch 100-62.5-25 mcg DsDv fluticasone 2020-0 Yes 1{puff} Inhale 1 Univers -umeclidin- 1-30 Puff ity of vilanter 00:00: daily. [place] ([address]) Branch 100-62.5-25 mcg DsDv fluticasone 2020-0 Yes 1{puff} Inhale 1 Univers -umeclidin- 1-30 Puff ity of vilanter 00:00: daily. [place] ([address]) Branch 100-62.5-25 mcg DsDv fluticasone 2020-0 Yes 1{puff} Inhale 1 Univers -umeclidin- 1-30 Puff ity of vilanter 00:00: daily. [place] ([address]) Branch 100-62.5-25 mcg DsDv fluticasone 2020-0 Yes 1{puff} Inhale 1 Univers -umeclidin- 1-30 Puff ity of vilanter 00:00: daily. [place] ([address]) Branch 100-62.5-25 mcg DsDv fluticasone 2020-0 Yes 1{puff} Inhale 1 Univers -umeclidin- 1-30 Puff ity of vilanter 00:00: daily. [place] [address]) Branch 100-62.5-25 mcg DsDv fluticasone 0 Yes 1{puff} Inhale 1 Univers -umeclidin- 1-30 Puff ity of vilanter 00:00: daily. [place] ([place] [address] Medical ELL[place]) Branch 100-62.5-25 mcg DsDv tiZANidine 2018-08 Yes [id number] 4mg Take 1 U nivers 4 mg 2-31 capsule by ity of capsule 00:00: mouth 3 [place] (three) Medical times Branch daily as needed for Muscle Spasms. tiZANidine 2018-08 Yes [id number] 4mg Take 1 U nivers 4 mg 2-31 capsule by ity of capsule 00:00: mouth 3 [place] (three) Medical times Branch daily as needed for Muscle Spasms. tiZANidine 2018-08 Yes [id number] 4mg Take 1 U nivers 4 mg 2-31 capsule by ity of capsule 00:00: mouth 3 [place] (three) Medical times Branch daily as needed for Muscle Spasms. tiZANidine 2018-08 Yes [id number] 4mg Take 1 U nivers 4 mg 2-31 capsule by ity of capsule 00:00: mouth 3 [place] (three) Medical times Branch daily as needed for Muscle Spasms. tiZANidine 2018-08 Yes [id number] 4mg Take 1 U nivers 4 mg 2-31 capsule by ity of capsule 00:00: mouth 3 [place] (three) Medical times Branch daily as needed for Muscle Spasms. tiZANidine 2018-08 Yes [id number] 4mg Take 1 U nivers 4 mg 2-31 capsule by ity of capsule 00:00: mouth 3 [place] (three) Medical times Branch daily as needed for Muscle Spasms. tiZANidine 2018-08 Yes [id number] 4mg Take 1 U nivers 4 mg 2-31 capsule by ity of capsule 00:00: mouth 3 [place] (three) Medical times Branch daily as needed for Muscle Spasms. tiZANidine 2018-08 Yes [id number] 4mg Take 1 U nivers 4 mg 2-31 capsule by ity of capsule 00:00: mouth 3 [place] (three) Medical times Branch daily as needed for Muscle Spasms. tiZANidine 2018-08 Yes [id number] 4mg Take 1 U nivers 4 mg 2-31 capsule by ity of capsule 00:00: mouth 3 [place] 00 (three) Medical times Branch daily as needed for Muscle Spasms. tiZANidine 2018-08 Yes [id number] 4mg Take 1 U nivers 4 mg 2-31 capsule by ity of capsule 00:00: mouth 3 [place] 00 (three) Medical times Branch daily as needed for Muscle Spasms. acetaminoph 2018-08 Yes [id number] 1{tbl} Take 1 Univers en-codeine 0-29 tablet by ity of 300-30 mg 00:00: mouth [place] tablet 00 every 6 Medical (six) Branch hours as needed for Pain (scale 4-6). acetaminoph 2018-08 Yes [id number] 1{tbl} Take 1 [facility] en-codeine 0-29 tablet by ity of 300-30 mg 00:00: mouth [place] tablet 00 every 6 Medical (six) Branch hours as needed for Pain (scale 4-6). acetaminoph 2018-08 Yes [id number] 1{tbl} Take 1 [facility] en-codeine 0-29 tablet by ity of 300-30 mg 00:00: mouth [place] tablet 00 every 6 Medical (six) Branch hours as needed for Pain (scale 4-6). acetaminoph 2018-08 Yes [id number] 1{tbl} Take 1 [facility] en-codeine 0-29 tablet by ity of 300-30 mg 00:00: mouth [place] tablet 00 every 6 Medical (six) Branch hours as needed for Pain (scale 4-6). acetaminoph 2018-08 Yes [id number] 1{tbl} Take 1 [facility] en-codeine 0-29 tablet by ity of 300-30 mg 00:00: mouth [place] tablet 00 every 6 Medical (six) Branch hours as needed for Pain (scale 4-6). acetaminoph 2018-08 Yes [id number] 1{tbl} Take 1 [facility] en-codeine 0-29 tablet by ity of 300-30 mg 00:00: mouth [place] tablet 00 every 6 Medical (six) Branch hours as needed for Pain (scale 4-6). acetaminoph 2018-08 Yes [id number] 1{tbl} Take 1 [facility] en-codeine 0-29 tablet by ity of 300-30 mg 00:00: mouth [place] tablet 00 every 6 Medical (six) Branch hours as needed for Pain (scale 4-6). acetaminoph 2018-08 Yes [id number] 1{tbl} Take 1 [facility] en-codeine 0-29 tablet by ity of 300-30 mg 00:00: mouth [place] tablet 00 every 6 Medical (six) Branch hours as needed for Pain (scale 4-6). acetaminoph 2018-08 Yes [id number] 1{tbl} Take 1 [facility] en-codeine 0-29 tablet by ity of 300-30 mg 00:00: mouth [place] tablet 00 every 6 Medical (six) Branch hours as needed for Pain (scale 4-6). acetaminoph 2018-08 Yes [id number] 1{tbl} Take 1 [facility] en-codeine 0-29 tablet by ity of 300-30 mg 00:00: mouth [place] tablet 00 every 6 Medical (six) Branch hours as needed for Pain (scale 4-6). hydrocodone Yes [id number] 5mL Take 5 mL Univers -chlorpheni 3-06 by mouth ity of ramine 00:00: every 12 [place] (TUSSIONEX 00 (twelve) Medic al PENNKINETIC hours as Bran ch ER) 10-8 needed for mg/5 mL Cough. suspension hydrocodone Yes [id number] 5mL Take 5 mL Univers -chlorpheni 3-06 by mouth ity of ramine 00:00: every 12 [place] (TUSSIONEX 00 (twelve) Medic al PENNKINETIC hours as Bran ch ER) 10-8 needed for mg/5 mL Cough. suspension hydrocodone Yes [id number] 5mL Take 5 mL Univers -chlorpheni 3-06 by mouth ity of ramine 00:00: every 12 [place] (TUSSIONEX 00 (twelve) Medic al PENNKINETIC hours as Bran ch ER) 10-8 needed for mg/5 mL Cough. suspension hydrocodone Yes [id number] 5mL Take 5 mL Univers -chlorpheni 3-06 by mouth ity of ramine 00:00: every 12 [place] (TUSSIONEX 00 (twelve) Medic al PENNKINETIC hours as Bran ch ER) 10-8 needed for mg/5 mL Cough. suspension hydrocodone 2018- Yes [id number] 5mL Take 5 mL Univers -chlorpheni 3-06 by mouth ity of ramine 00:00: every 12 [place] (IONEX (twelve) Medic al PENNKINETIC hours as Bran ch ER) 10-8 needed for mg/5 mL Cough. suspension hydrocodone 2019-0 Yes [id number] 5mL Take 5 mL Univers -chlorpheni 3-06 by mouth ity of ramine 00:00: every 12 [place] (IONEX (twelve) Medic al PENNKINETIC hours as Bran ch ER) 10-8 needed for mg/5 mL Cough. suspension hydrocodone 2019-0 Yes [id number] 5mL Take 5 mL Univers -chlorpheni 3-06 by mouth ity of ramine 00:00: every 12 [place] (IONEX () Medic al PENNKINETIC hours as Bran ch ER) 10-8 needed for mg/5 mL Cough. suspension hydrocodone 2019-0 Yes [id number] 5mL Take 5 mL Univers -chlorpheni 3-06 by mouth ity of ramine 00:00: every 12 [place] (IONEX () Medic al PENNKINETIC hours as Bran ch ER) 10-8 needed for mg/5 mL Cough. suspension hydrocodone 2019-0 Yes [id number] 5mL Take 5 mL Univers -chlorpheni 3-06 by mouth ity of ramine 00:00: every 12 [place] (IONEX () Medic al PENNKINETIC hours as Bran ch ER) 10-8 needed for mg/5 mL Cough. suspension hydrocodone 2019-0 Yes [id number] 5mL Take 5 mL Univers -chlorpheni 3-06 by mouth ity of ramine 00:00: every 12 [place] (IONEX (twelve) Medic al PENNKINETIC hours as Bran [...] needed for Pain (scale 4-6). aspirin 81 2018-0 Yes 81mg Take 1 Unive rs mg chewable 8-23 tablet by ity of tablet 00:00: mouth [place] 00 daily. Medical Branch aspirin 81 2018-0 Yes 81mg Take 1 Unive rs mg chewable 8-23 tablet by ity of tablet 00:00: mouth [place] 00 daily. Medical Branch aspirin 81 2018-0 Yes 81mg Take 1 Unive rs mg chewable 8-23 tablet by ity of tablet 00:00: mouth [place] 00 daily. Medical Branch aspirin 81 2018-0 Yes 81mg Take 1 Unive rs mg chewable 8-23 tablet by ity of tablet 00:00: mouth [place] 00 daily. Medical Branch aspirin 81 2018-0 Yes 81mg Take 1 Unive rs mg chewable 8-23 tablet by ity of tablet 00:00: mouth [place] 00 daily. Medical Branch aspirin 81 2018-0 Yes 81mg Take 1 Unive rs mg chewable 8-23 tablet by ity of tablet 00:00: mouth [place] 00 daily. Medical Branch aspirin 81 2018-0 Yes 81mg Take 1 Unive rs mg chewable 8-23 tablet by ity of tablet 00:00: mouth [place] 00 daily. Medical Branch aspirin 81 2018-0 Yes 81mg Take 1 Unive rs mg chewable 8-23 tablet by ity of tablet 00:00: mouth [place] 00 daily. Medical Branch aspirin 81 2018-0 Yes 81mg Take 1 Unive rs mg chewable 8-23 tablet by ity of tablet 00:00: mouth [place] 00 daily. Medical Branch aspirin 81 2018-0 Yes 81mg Take 1 Unive rs mg chewable 8-23 tablet by ity of tablet 00:00: mouth [place] 00 daily. Medical Branch nitroglycer 2018-[address] 1 Uni [...] of 3 tablets in 15 minutes fluticasone 2017- Yes 2{spray Use 2 Un mack 50 7-05 } Sprays in ity of mcg/actuati 00:00: each [place] on nasal 00 nostril Medical spray daily. Branch fluticasone 2017- Yes 2{spray Use 2 Un mack 50 7-05 } Sprays in ity of mcg/actuati 00:00: each [place] on nasal 00 nostril Medical spray daily. Branch fluticasone 2017- Yes 2{spray Use 2 Un mack 50 7-05 } Sprays in ity of mcg/actuati 00:00: each [place] on nasal 00 nostril Medical spray daily. Branch fluticasone 2018-0 Yes 2{spray Use 2 Un mack 50 7-05 } Sprays in ity of mcg/actuati 00:00: each [place] on nasal 00 nostril Medical spray daily. Branch fluticasone 2018-0 Yes 2{spray Use 2 Un mack 50 7-05 } Sprays in ity of mcg/actuati 00:00: each [place] on nasal 00 nostril Medical spray daily. Branch fluticasone 2017-0 Yes 2{spray Use 2 Un mack 50 7-05 } Sprays in ity of mcg/actuati 00:00: each [place] on nasal 00 nostril Medical spray daily. Branch fluticasone 2017-0 Yes 2{spray Use 2 Un mack 50 7-05 } Sprays in ity of mcg/actuati 00:00: each [place] on nasal 00 nostril Medical spray daily. Branch fluticasone 2017-0 Yes 2{spray Use 2 Un mack 50 7-05 } Sprays in ity of mcg/actuati 00:00: each [place] on nasal 00 nostril Medical spray daily. Branch fluticasone 2018-0 Yes 2{spray Use 2 Un mack 50 7-05 } Sprays in ity of mcg/actuati 00:00: each [place] on nasal 00 nostril Medical spray daily. Branch fluticasone 2018-0 Yes 2{spray Use 2 Un mack 50 7-05 } Sprays in ity of mcg/actuati 00:00: each [place] on nasal 00 nostril Medical spray daily. [place] Metoprolol Metoprolol Yes [place] (Prior Common Tartrate Tartrate [place] Auth: Rx S pirit Ref#:[id number] - [facility] [id number]) [facility] Tramadol-Ac Tramadol-Ac Yes [place] (Schedule Common etaminophen etaminophen [place] IV Drug) [facility] (Prior - [facility] Auth: Rx St Ref#:[id number] [facility] [id number]) [facility] Chantix Chantix Yes [place] (Prior Commo n [place] Auth: Rx Spirit Ref#:[id number] [facility] [id number]) [facility] Gabapentin Gabapentin Yes [place] (Prior Common [place] Auth: Rx Spirit Ref#:[id number] - [facility] [id number]) [facility] Aspirin Aspirin Yes [place] (Prior Commo n [place] Auth: Rx Spirit Ref#:[id number] - [facility] [id number]) [facility] Carvedilol Carvedilol Yes [place] (Prior Common [place] Auth: Rx Spirit Ref#:[id number] - [facility] [id number]) [facility] ProAir HFA ProAir HFA Yes [place] (Prior Common [place] Auth: Rx Spirit Ref#:[id number] - [facility] [id number]) [facility] Sulfamethox Sulfamethox Yes [place] (Prior Common azole-Trime azole-Trime [place] Auth: Rx Spirit thoprim thoprim Ref#:[id number] - [facility] [id number]) [facility] Nitroglycer Nitroglycer Yes [place] (Prior Common in in [place] Auth: Rx Spirit Ref#:[id number] - [facility] [id number]) [facility] Trelegy Trelegy Yes [place] (Prior Commo n Ellipta Ellipta [place] Auth: Rx Spi rit Ref#:[id number] - [facility] [id number]) [facility] Spiriva Spiriva Yes [place] (Prior Commo n HandiHaler HandiHaler [place] Auth: Rx Spirit Ref#:[id number] - [facility] [id number]) [facility] Atorvastati Atorvastati Yes [place] (Prior Common n Calcium n Calcium [place] Auth: Rx Spirit Ref#:[id number] - [facility] [id number]) [facility] Brilinta Brilinta Yes [place] (Prior Com mon [place] Auth: Rx Spirit Ref#:[id number] - [facility] [id number]) [facility] Losartan Losartan Yes [place] (Prior Com mon Potassium Potassium [place] Auth: Rx Spirit Ref#:[id number] - [facility] [id number]) [facility] Immunizations Ordered Filled Immunization Date Status Comments [facility] Immunization Name Name [id number] 2021-08-06 Completed Memor darron [place] [id number]-1273vaxMODERNA< 00:00:00 sup>1</sup> [id number] 2020-09-28 Completed Memor darron [place] RNA-1273vaxMODERNA 00:00:00 SARS-COV-2 COVID-19 2020-09-28 Completed Unive rsity of MODERNA VACCINE 00:00:00 [place] Med ical Branch SARS-COV-2 COVID-19 2020-09-28 Completed Unive rsity of MODERNA VACCINE 00:00:00 [place] Med ical Branch SARS-COV-2 COVID-19 2020-09-28 Completed Unive rsity of MODERNA 12+ YRS 00:00:00 [place] Med ical VACCINE Branch SARS-COV-2 COVID-19 2020-09-28 Completed Unive rsity of MODERNA 12+ YRS 00:00:00 [place] Med ical VACCINE Branch SARS-COV-2 COVID-19 2020-09-28 Completed Unive rsity of MODERNA 12+ YRS 00:00:00 [place] Med ical VACCINE Branch SARS-COV-2 COVID-19 2020-09-28 Completed Unive rsity of MODERNA 12+ YRS 00:00:00 [place] Med ical VACCINE Branch SARS-COV-2 COVID-19 2020-09-28 Completed Unive rsity of MODERNA 12+ YRS 00:00:00 [place] Med ical VACCINE Branch SARS-COV-2 COVID-19 2020-09-28 Completed Unive rsity of MODERNA 12+ YRS 00:00:00 [place] Med ical VACCINE Branch SARS-COV-2 COVID-19 2020-09-28 Completed Unive rsity of MODERNA 12+ YRS 00:00:00 [place] Med ical VACCINE Branch SARS-COV-2 COVID-19 2020-09-28 Completed Unive rsity of MODERNA 12+ YRS 00:00:00 [place] Med ical VACCINE Branch [id number] 2020-08-31 Completed Michael HUFF-1273vaxMODERNA< 00:00:00 sup>2</sup> SARS-COV-2 COVID-19 2020-08-31 Completed Unive rsity of MODERNA VACCINE 00:00:00 [place] Med ical Branch SARS-COV-2 COVID-19 2020-08-31 Completed Unive rsity of MODERNA VACCINE 00:00:00 [place] Med ical Branch SARS-COV-2 COVID-19 2020-08-31 Completed Unive rsity of MODERNA 12+ YRS 00:00:00 [place] Med ical VACCINE Branch SARS-COV-2 COVID-19 2020-08-31 Completed Unive rsity of MODERNA 12+ YRS 00:00:00 [facility] ical VACCINE Branch SARS-COV-2 COVID-19 2020-08-31 Completed Unive rsity of MODERNA 12+ YRS 00:00:00 [facility] ical VACCINE Branch SARS-COV-2 COVID-19 2020-08-31 Completed Unive rsity of MODERNA 12+ YRS 00:00:00 [facility] ical VACCINE Branch SARS-COV-2 COVID-19 2020-08-31 Completed Unive rsity of MODERNA 12+ YRS 00:00:00 [facility] ical VACCINE Branch SARS-COV-2 COVID-19 2020-08-31 Completed Unive rsity of MODERNA 12+ YRS 00:00:00 [facility] ical VACCINE Branch SARS-COV-2 COVID-19 2020-08-31 Completed Unive rsity of MODERNA 12+ YRS 00:00:00 [facility] VACCINE Branch SARS-COV-2 COVID-19 2020-08-31 Completed Unive rsity of MODERNA 12+ YRS 00:00:00 [facility] VACCINE Branch Influenza High Dose 2020-05-29 Completed Unive rsity of [place] 00:00:00 [facility] Influenza High Dose 2020-05-29 Completed Unive rsity of [place] 00:00:00 [facility] Influenza High Dose 2020-05-29 Completed Unive rsity of [place] 00:00:00 [facility] Influenza High Dose 2020-05-29 Completed Unive rsity of [place] 00:00:00 [facility] Influenza High Dose 2020-05-29 Completed Unive rsity of [place] 00:00:00 [facility] Influenza High Dose 2020-05-29 Completed Unive rsity of [place] 00:00:00 [facility] Influenza High Dose 2020-05-29 Completed Unive rsity of [place] 00:00:00 [facility] Influenza High Dose 2020-05-29 Completed Unive rsity of [place] 00:00:00 [facility] Influenza High Dose 2020-05-29 Completed Unive rsity of [place] 00:00:00 [facility] Influenza High Dose 2020-05-29 Completed Unive rsity of [place] 00:00:00 [facility] Influenza Virus 2018-05-08 Completed Universit y of Vaccine 00:00:00 [facility] Influenza Virus 2018-05-08 Completed Universit y of Vaccine 00:00:00 [facility] Branch Influenza Virus 2018-05-08 Completed Universit y of Vaccine 00:00:00 [facility] Branch Influenza Virus 2018-05-08 Completed Universit y of Vaccine 00:00:00 [facility] Branch Influenza Virus 2018-05-08 Completed Universit y of Vaccine 00:00:00 [facility] Branch Influenza Virus 2018-05-08 Completed Universit y of Vaccine 00:00:00 [facility] Branch Influenza Virus 2018-05-08 Completed Universit y of Vaccine 00:00:00 [facility] Branch Influenza Virus 2018-05-08 Completed Universit y of Vaccine 00:00:00 [facility] Influenza Virus 2018-05-08 Completed Universit y of Vaccine 00:00:00 [facility] Influenza Virus 2018-05-08 Completed Universit y of Vaccine 00:00:00 [facility] Vital Signs Vital Name Observation Time Observation Value Comments Source Systolic blood 2021-12-01 18:05:00 115 mm[Hg[facility] [place] Diastolic blood 2021-12-01 18:05:00 65 mm[Hg] Unive [facility] Heart rate 2021-12-01 18:02:00 70 /min [facility] Body height 2021-12-01 18:02:[address] [facility] Body weight 2021-12-01 18:02:[address] [facility] BMI 2021-12-01 18:02:00 30.00 kg/m2 [facility] Oxygen saturation 2021-12-01 18:02:00 95 /min [facility] in Arterial blood [facility] anch by Pulse oximetry Systolic blood 2021-12-01 18:05:00 115 mm[Hg] [facility] pressure [facility] Diastolic blood 2021-12-01 18:05:00 65 [facility]Hg[facility] 2021-12-01 18:02:00 70 /min [facility] Body height 2021-12-01 18:02:[address] [facility] Body weight 2021-12-01 18:02:[address] [facility] BMI 2021-12-01 18:02:00 30.00 kg/m2 [facility] Oxygen saturation 2021-12-01 18:02:00 95 /min [facility] in Arterial blood Medical Br anch by Pulse oximetry Respitory Rate 2022-03-23 01:52:00 [facility] [place] Systolic (mm Hg) 2022-03-23 01:52:00 [place] [facility] [place] Diastolic (mm Hg) 2022-03-23 01:52:00 Mem o[facility] [place] Respitory Rate 2022-03-23 01:45:00 [facility] [place] Systolic (mm Hg) 2022-03-23 01:45:00 [place] [facility] [place] Diastolic (mm Hg) 2022-03-23 01:45:00 Mem o[facility] [place] Respitory Rate 2022-03-23 01:15:00 [facility] [place] Systolic (mm Hg) 2022-03-23 01:15:00 [place] [facility] [place] Diastolic (mm Hg) 2022-03-23 01:15:00 Mem orial [place] Heart Rate 2022-03-22 16:55:00 [facility] [place] Height 2022-03-22 15:50:00 190.5 cm [facility] [place] Weight 2022-03-22 15:50:00 [facility] [place] BMI Calculated 2022-03-22 15:50:00 [facility] [place] Height 2022-03-21 13:20:00 190.5 cm [facility] [place] Weight 2022-03-21 13:20:00 [facility] [place] BMI Calculated 2022-03-21 13:20:00 [facility] [place] Respitory Rate 2021-12-30 22:00:00 [facility] [place] Systolic (mm Hg) 2021-12-30 22:00:00 [place] [facility] [place] Diastolic (mm Hg) 2021-12-30 22:00:00 Mem orial [place] Respitory Rate 2021-12-30 21:30:00 Memori al [place] Systolic (mm Hg) 2021-12-30 21:30:00 Cayetano rial [place] Diastolic (mm Hg) 2021-12-30 21:30:00 Mem orial [place] Respitory Rate 2021-12-30 21:15:00 Memori al Delfino Systolic (mm Hg) 2021-12-30 21:15:00 Cayetano rial [place] Diastolic (mm Hg) 2021-12-30 21:15:00 Mem orial Delfino Height 2021-12-30 17:15:00 190.5 cm [facility] [place] Weight 2021-12-30 17:15:00 Memorial [place] BMI Calculated 2021-12-30 17:15:00 Memori al Delfino Height 2021-12-28 15:46:00 190.5 cm [facility] [place] Weight 2021-12-28 15:46:00 [facility] [place] BMI Calculated 2021-12-28 15:46:00 Memori al [place] Procedures Procedure Date / Time Performing Clinician Source Performed AUTHORIZATION FOR 2022-06-03 05:01:00 Doctor Unassigned, No Univ ersFormerly [facility] RELEASE OF [facility] Name [facility] AUTHORIZATION FOR 2022-05-23 05:01:00 Doctor Unassigned, No Univ ersFormerly [facility] RELEASE OF PHI Name [facility] EKG-12 LEAD 2021-12-01 18:09:[address] [facility] Procedure<sup>3</sup> Memorial H ermann Assess fracture [facility] [place] care<sup>1</sup> Encounters Start End Encounter Admission Attending Care Care Encounter Source Date/Time Date/Time Type Type Clinicians Facility Department ID 2022-12-07 Outpatient [facility] [id number] [place] 12:59:09 [id number] [facility] 2022-09-13 Outpatient [facility] [id number] [place] 15:58:03 [id number] [facility] 2022-09-05 Inpatient HARRY SouthCL OUTD [id number] [facility] 09:30:00 John 24 [facility] 2021-11-12 Outpatient [facility] [id number] [place] 10:01:10 [facility] 2021-06-27 Emergency [facility] [id number] Univers 19:20:35 ity [facility] 2019-09-03 Inpatient HARRY AdameTO DAYS [id number] [facility] 08:45:00 [place] [address] [facility] 2022-10-29 2022-10-29 Refill Jason, [facility] 1.2.840.114 [id number] Univers 00:00:00 00:00:00 Jese BOOTHE 350.1.13.10 ity [facility] [place].2.[place] [phone] De dical NAL 059 [facility] 2022-09-26 2022-09-26 Office Ndjackson [facility] 1.2.840.114 [id number] [place] 10:45:00 11:05:27 Visit [facility] 350.1.13.58 H [facility] 9.2.7.2.686 PLAZA 5 [id number] 2022-09-26 2022-09-26 Outpatient [facility] [id number] [place] 10:45:00 11:02:50 [facility] 2022-09-07 2022-09-07 Outpatient Milton, [facility] [id number] [facility] 05:25:00 05:25:00 John 24 [facility] 2022-08-17 2022-08-17 Refill Jason, [facility] 1.2.840.114 [id number] Univers 00:00:00 00:00:00 Jese BOOTHE 350.1.13.10 ity of [facility] 4.2.[place] [phone] De dical NAL 059 [facility] 2022-08-02 2022-08-02 Refill Jason, [facility] 1.2.840.114 [id number] Univers 00:00:00 00:00:00 Jese BOOTHE 350.1.13.10 ity of [facility] 4.2.[place] [phone] De dical NAL 059 [facility] 2022-07-27 2022-07-27 Outpatient [facility] [id number] [place] 00:00:00 12:50:11 [facility] 2022-07-27 2022-07-27 Outpatient [facility] [id number] [place] 10:45:00 12:49:58 [facility] 2022-07-20 2022-07-20 Outpatient [facility] [id number] [place] 14:15:00 14:15:00 [facility] 2022-06-03 2022-06-03 Orders Doctor DANILO 1.2.840.114 [id number] Univers 00:00:00 00:00:00 Only Unassigned, VISHAL 350.1.13.10 ity of [facility] 4.2.7.2.686 [place] as [phone] [address] 2022-05-23 2022-05-23 Patient Gomez, [facility] 1.2.840.114 [id number] Univers 00:00:00 00:00:00 Secure Msg Jese BOOTHE 350.1.13.10 ity of [place] 4.2.7.2.[place] [phone] De dic[address] 2022-05-23 2022-05-23 Patient Gomez, [facility] 1.2.840.114 [id number] [facility] 00:00:00 00:00:00 Secure Msg Jese BOOTHE 350.1.13.10 ity of [place] 4.2.7.2.[place] [phone] [address] 2022-05-23 2022-05-23 Orders Doctor DANILO 1.2.840.114 [id number] Univers 00:00:00 00:00:00 Only Unassigned, VISHAL 350.1.13.10 ity of [facility] 4.2.7.2.686 [place] as [phone] [address] 2022-04-20 2022-04-20 Office ROSIE [facility] 1.2.840.114 [id number] [place] 14:15:00 16:04:36 Visit REID ASBURY 350.1.13.58 H [facility] 9.2.7.2.686 [address] 3 [phone] 5 2022-04-06 2022-04-06 Office ROSIE [facility] 1.2.840.114 [id number] [place] 14:15:00 16:51:38 [facility] 350.1.13.58 [facility] MEDICAL 9.2.7.2.686 PLAZA 5 [phone] 5 2022-03-22 2022-03-23 [facility] [id number] Memoria 15:41:00 01:52:00 Surgery r [place] 01 l [facility] 2022-03-22 2022-03-22 Outpatient GAUVAIN, MHBL MHBL [id number] MHBL 10:41:00 20:52:00 [facility] 2022-03-22 2022-03-22 Outpatient Gauvain, MHPL MHPL [id number] 10:41:00 20:52:00 [place] [address] Jennifer 2022-03-22 2022-03-22 Outpatient GAUVAIN, [facility] [id number] [place] 16:30:00 16:30:00 [facility] 2022-03-18 2022-03-18 Office Gauvain, [facility] 1.2.840.114 [id number] [place] 14:30:00 15:18:30 Visit Reid [facility] 350.1.13.58 [facility] MEDICAL 9.2.7.2.686 PLAZA 8 [phone] 5 2022-03-09 2022-03-09 Office Donuvyudy, [facility] 1.2.840.114 [id number] [place] 10:45:00 11:00:00 Visit Reid [facility] 350.1.13.58 [facility] MEDICAL 9.2.7.2.686 [place] 4 [phone] 5 2022-02-11 2022-02-11 Office Donuvyudy, [facility] 1.2.840.114 [id number] [place] 10:30:00 10:45:00 Visit [facility] 350.1.13.58 [facility] MEDICAL 9.2.7.2.686 [address] 2 [phone] 5 2022-01-20 2022-01-20 Outpatient Chemo RUGGIERO [facility] [id number] [facility] 15:15:00 15:15:00 MARKEL griffith [facility] 2022-01-14 2022-01-14 Office Rosie [facility] 1.2.840.114 [id number] [place] 10:15:00 10:30:00 Visit [facility] 350.1.13.58 H [facility] 9.2.7.2.686 PLAZA 5 [phone] 5 2021-12-30 2021-12-31 Day [facility] [id number] Memoria 15:51:00 04:59:00 Surgery r [place] 00 [facility] 2021-12-30 2021-12-30 Outpatient ROSIE, [facility] 7500 [facility] 10:51:00 23:59:00 [facility] 2021-12-30 2021-12-30 Outpatient Rosie, [facility] [id number] 10:51:00 23:59:[address] 2021-12-30 2021-12-30 Outpatient ROSIE [facility] [id number] [place] 13:30:00 13:30:00 [facility] 2021-12-28 2021-12-28 Outpatient [facility] [id number] Univers 12:48:19 23:59:00 SENDIL gladis [facility] 2021-12-28 2021-12-28 Jose Gomez [facility] 1.2.373.553 [id number] Univers 00:00:00 00:00:00 Sendil Ashley BOOT[place] 350.1.13.10 ity of [place] 4.2.7.2.[place] [phone] De [place] 811119 [facility] 2021-12-17 2021-12-17 Orders Doctor DANILO 1.2.840.114 [id number] Univers 00:00:00 00:00:00 Only Unassigned, VISHAL 350.1.13.10 ity of [facility] 4.2.7.2.686 [place] as [phone] [address] 2021-12-16 2021-12-16 Outpatient Chemo GOMEZ [facility] [id number] Univers 09:12:52 23:59:00 SENDIL ity [facility] 2021-12-16 2021-12-16 [facility] 1.2.840.114 [id number] Univers 09:12:52 23:59:00 Encounter Jese BOOTHE 350.1.13.10 ity [facility] 4.2.7.2.[place] [phone] [facility] [address] 2021-12-16 2021-12-16 Outpatient R JASON [facility] [id number] Univers 09:12:52 09:12:52 SENDIL ity [facility] 2021-12-13 2021-12-13 Telephone [facility] 1.2.876.615 [id number] Univers 00:00:00 00:00:00 Sendhugh BO[place] 350.1.13.10 ity [facility] 4.2.7.[place] [phone] De dic[place] 811119 [facility] 2021-12-10 2021-12-10 Office NOA Velez [facility] 1.2.840.114 [id number] [place] 10:15:00 10:30:00 Visit Reid [facility] 350.1.13.58 H [facility] 9.2.7.2.686 [address] 6 [phone] 5 2021-12-10 2021-12-10 Orders Doctor DANILO 1.2.840.114 [id number] Univers 00:00:00 00:00:00 Only Unassigned, VISHAL 350.1.13.10 ity of [facility] 4.2.7.2.686 [place] [phone] [facility] 009 Branch 2021-12-07 2021-12-07 Outpatient R JASON [facility] [id number] Univers 00:00:00 00:00:00 SENDIL ity [facility] 2021-12-01 2021-12-01 [facility] [id number] Univers 13:00:00 13:33:49 SENDIL ity [facility] 2021-12-01 2021-12-01 Office [facility] 1.2.840.114 [id number] Univers 13:00:00 13:33:49 Visit Jese BOOTHE 350.1.13.10 ity of [place] 4.2.7.2.[place] [phone] De dical NAL 059 [facility] 2021-12-01 2021-12-01 Office [facility] 1.2.840.114 [id number] Univers 13:00:00 13:33:49 Visit Jese BOOTHE 350.1.13.10 ity of [place] 4.2.7.2.[place] [phone] De dical NAL 9 [facility] 2021-12-01 2021-12-01 Orders Doctor DANILO 1.2.840.114 [id number] [facility] 00:00:00 00:00:00 Only Unassigned, VISHAL 350.1.13.10 ity of [facility] 4.2.7.2.686 [place] [phone] [address] 2021-11-24 2021-11-25 Outpt Diag nullFlavo [facility] [address] [id number] [facility] 15:24:00 04:59:00 Services r Outpatient 00 l Imaging Delfino Bryant 2021-11-24 2021-11-24 Outpatient MARIEL Velez [facility] [id number] 10:24:00 23:59:00 Reid Rodriguez 2021-11-18 2021-11-18 Telephone Kalyani Serrano [facility] 1.2.840 .114 [id number] [place] 00:00:00 00:00:00 Kalyani Serrano 350.1.13.58 Health MEDICAL 9.2.7.2.686 PLAZA 3 [phone] 5 2021-11-12 2021-11-12 Office NOA VELEZ [facility] 1.2.840.114 [id number] [place] 09:45:00 10:00:00 Visit REID BRYANT 350.1.13.58 [facility] MEDICAL 9.2.7.2.686 PLAZA 7 [phone] 5 2021-06-02 2021-06-02 Office Jason [facility] 1.2.840.114 [id number] Univers 12:49:57 13:23:05 Visit Jese Boothe 350.1.13.10 ity of [place] 4.2.7.2.[place] [phone] [place] 296[address] Branch [facility] 2021-06-02 2021-06-02 Outpatient R JASON [facility] [id number] Univers 13:00:00 13:00:00 SENDIL ity of [facility] 2021-06-02 2021-06-02 Orders Doctor DANILO 1.2.840.114 [id number] Univers 00:00:00 00:00:00 Only Unassigned, VISHAL 350.1.13.10 ity of [facility] 4.2.7.2.686 [place] [phone] [place] [address] Branch 2021-04-05 2021-04-05 Refill Jason [facility] 1.2.840.114 [id number] Univers 00:00:00 00:00:00 Jese KimHJostin HEALTH 350.1.13.10 it[place] of [place] 4.2.7.2.686 [place] [phone] [facility] Primary & 9 Branch Specialty Care 2021-02-27 2021-02-27 Refill Jason [facility] 1.2.840.114 [id number] Univers 00:00:00 00:00:00 Jese KimHJostin Health 350.1.13.10 ity of [place] 4.2.7.2.686 [place] [phone] [place] [address] Branch Office Building 2021-01-20 2021-01-20 Refill Jason [facility] 1.2.840.114 [id number] Univers 00:00:00 00:00:00 Jese Boothe 350.1.13.10 ity of [place] 4.2.7.2.[place] [phone] [place] [address] Branch Building 2021-01-18 2021-01-18 Refill Jason [facility] 1.2.840.114 [id number] Univers 00:00:00 00:00:00 Jese BrodyJostin Littcarr 350.1.13.10 ity of [place] 4.2.7.2.[place] [phone] De dical nal 059 Branch Building 2021-01-10 2021-01-10 Emergency Ebramem, [facility] 1.2.840.114 [id number] Univers 11:41:00 17:36:00 Roland Ungerton 350.1.13.10 i ty of [place] 4.2.7.2.686 [place] [phone] [facility] 084 Branch 2021-01-10 2021-01-10 Emergency X EBRAHIM, [facility] ERT [id number] Univers 11:41:00 17:36:00 RAINAIA ity [facility] 2021-01-10 2021-01-10 Nurse Nurse, [facility] 1.2 .840.114 [id number] Univers 11:40:01 11:55:01 Visit [facility] 350.1.13.10 ity [facility] 4.2.7.2.686 [facility] Professio [phone] [facility] [address] [place] Office Building One 2021-01-10 2021-01-10 Outpatient R [facility] [id number] Univers 11:20:00 11:20:00 ity of [facility] 2021-01-06 2021-01-06 Telephone [facility] 1.2.840.114 [id number] Univers 00:00:00 00:00:00 Jaswinder HOLBROOKPEC 350.1.13.10 ity of [place] 4.2.7.2.686 [facility] [phone] [facility] AND [address] DI[facility]ES [facility]INIC 2021-01-01 2021-01-01 Outpatient R SHILPI [facility] [id number] Univers 09:30:00 09:30:00 ERIC ity of [facility] 2020-12-14 2020-12-14 Office [facility] 1.2.840.114 [id number] Univers 09:55:05 10:26:32 Visit Dilcia HOLBROOKPEC 350.1.13.10 ity of [place] 4.2.7.2.[place] CENTER [phone] [facility] [address] [place] [facility] 2020-12-14 2020-12-14 Outpatient R CUAUHTEMOC [facility] [id number] Univers 10:15:00 10:15:00 DILCIA ity [facility] 2020-11-27 2020-11-27 Orders Doctor DANILO 1.2.840.114 [id number] Univers 00:00:00 00:00:00 Only Unassigned, VISHAL 350.1.13.10 ity of [facility] 4.2.7.2.686 [place] [phone] [facility] 009 Branch 2020-11-27 2020-11-27 Telephone Shilpi [facility] 1.2.586.606 [id number] Univers 00:00:00 00:00:00 Eric MULTISPEC 350.1.13.10 ity of [place].2.[place] CENTER [phone] [facility] [address] [place] [facility] 2020-11-26 2020-11-26 Office Jason [facility] 1.2.840.114 [id number] Univers 12:53:31 13:51:45 Visit Jese Boothe 350.1.13.10 ity of [place] 4.2.7.2.[place] [phone] De dical nal 059 [facility] 2020-11-26 2020-11-26 Outpatient R JASON [facility] [id number] Univers 13:00:00 13:00:00 SENDIL ity [facility] 2020-11-23 2020-11-23 Patient Doctor [facility] 1.2.840.114 [id number] Univers 00:00:00 00:00:00 Secure Msg Unassigned, Health 350.1.13.10 ity of [facility] [place] 4.2.7.2.686 [place] Professio [phone] De dical nal [address] [place] Office Building One 2020-10-30 2020-10-30 Patient Jason [facility] 1.2.840.114 [id number] Univers 00:00:00 00:00:00 Secure Msg Sendil [facility] 350.1.13.10 ity of [place]2.7.2.686 [place] [id number] [address] Office [facility] 2020-10-20 2020-10-20 Refill Jason [facility] 1.2.840.114 [id number] Univers 00:00:00 00:00:00 Sendil [facility] L[facility] 350.1.13.10 ity of [place] 4[place].2.[place] [phone] [address] 2020-10-13 2020-10-13 Outpatient R JASON [facility] [id number] Univers 10:30:00 10:30:00 SENDIL ity [facility] 2020-10-02 2020-10-02 Patient Jason [facility] 1.2.840.114 [id number] Univers 00:00:00 00:00:00 Secure Msg Sendil [facility] 350.1.13.10 ity of [place] 4.[place].7.2.[place] [phone] [address] 2020-09-28 2020-09-28 Outpatient Chemo PEDERSEN [facility] [id number] Univers 12:10:00 12:10:00 LETY ity [facility] 2020-09-25 2020-09-25 Patient Jason [facility] 1.2.840.114 [id number] Univers 00:00:00 00:00:00 Secure Msg Sendil [facility] 350.1.13.10 ity of [place] [phone] [address] Office [facility] 2020-08-31 2020-08-31 Outpatient Chemo P[facility]EN [facility] [id number] Univers 12:10:00 12:10:00 LETY ity [facility] 2020-08-12 2020-08-12 Telephone Jason [facility] 1.2.493.143 [id number] Univers 00:00:00 00:00:00 Sendil [facility]. Littcarr 350.1.13.10 ity of [place] 4.2.7.2.[place] [phone] De dical nal 059 [facility] 2020-08-10 2020-08-10 Hospital [facility] 1.2.840.114 [id number] Univers 07:38:19 23:59:00 Encounter Jese Boothe 350.1.13.10 ity of [place] 4.2.7.2.686 [place] [phone] [facility] [address] [place] 2020-08-10 2020-08-[address] Registrar Juan, Adc Lab Main [facility] 1.2.8 40.114 [id number] Univers 07:42:26 07:57:26 Visit Jese Gomez 350.1.13. 10 ity of [place] 4.2.7.2.[place] [phone] De dical nal 353 [facility] 2020-08-10 2020-08-10 Outpatient R [facility] [id number] Univers 00:00:00 00:00:00 SENDIL ity of [facility] 2020-07-29 2020-07-29 Patient [facility] 1.2.840.114 [id number] Univers 00:00:00 00:00:00 Secure Msg Jese Boothe 350.1.13.10 ity of [place] 4.2.[place].2.686 [place] [facility] [phone] De dical nal 059 [facility] 2020-07-28 2020-07-28 Telephone [facility] 1.2.022.142 [id number] Univers 00:00:00 00:00:00 Eric MULTISPEC 350.1.13.10 ity of [place] 4.2.7.2.[place] [phone] [facility] AND BABATUNDE [address] [place] [facility] 2020-07-17 2020-07-17 Orders Doctor DANILO 1.2.840.114 [id number] Univers 00:00:00 00:00:00 Only Unassigned, VISHAL 350.1.13.10 ity of [facility] 4.2.7.2.686 [place] [phone] [facility] 009 Branch 2020-07-15 2020-07-15 Telephone Ruggiero [facility] 1.2.994.802 [id number] Univers 00:00:00 00:00:00 Markel Health 350.1.13.10 it y of [place] 4.2.7.2.686 [place] Professio [phone] De dical [facility] [address] [place] Office Building One 2020-06-15 2020-06-22 Office [facility] 1.2.840.114 [id number] Univers 10:49:09 15:30:[address] [facility] 350.1.13.10 ity of [facility] 42.7.2.686 [facility] [phone] [facility] AND FINE Yue [place] [facility] 2020-06-15 2020-06-22 Office [facility] 1.2.840.114 [id number] 10:49:09 15:30:[address] [facility] 350.1.13.10 [facility] 42.7.2.686 [place] [phone] AND FINE [facility] 2020-06-15 2020-06-15 Outpatient Chemo POSADAS [facility] [id number] Univers 11:00:00 11:00:00 DILCIA ity of [facility] 2020-04-09 2020-04-09 Refmanohar [facility] 1.2.840.114 [id number] Univers 00:00:00 00:00:00 [facility] K.H. HEALTH 350.1.13.10 ity of [place] 4.2.7.2.686 [facility] [phone] [facility] Primary & 059 Branch Specialty Care 2020-04-04 2020-04-04 Telephone DANILO Ruggiero 1.2.785.788 [id number] Univers 00:00:00 00:00:00 Markel RODGERS 350.1.13.10 it y of [facility] 4.2.7.2.686 [place] as [phone] [facility] 019 Branch 2020-04-03 2020-04-03 Outpatient Chemo PLEITEZ [facility] [id number] Univers 11:30:00 11:30:00 ERIC boldeny [facility] 2020-04-03 2020-04-03 Laboratory Lab, Adc Fam Pob I [facility] 1.2. 840.114 [id number] Univers 10:14:42 10:34:42 Only Iliana [facility] 350.1.13.10 ity of [place] 4.2.7.2.686 [place] Professio [phone] [address] Office [facility] One 2020-04-03 2020-04-03 Outpatient R [facility] [id number] Univers 10:20:00 10:20:00 ity of [facility] 2020-03-09 2020-03-27 Office Cuauhtemoc [facility] 1.2.840.114 [id number] Univers 13:11:00 00:08:24 Visit Dilcia Padilla [facility] 350.1.13.10 ity of [place] C[place] [phone] [address] DIABETES CLINIC 2020-03-09 2020-03-09 Outpatient [facility] [id number] Univers 13:40:00 13:40:00 DILCIA [facility] 2020-01-27 2020-02-24 Office [facility] 1.2.840.114 [id number] Univers 13:57:53 16:33:51 Visit Dilcia Padilla [facility] 350.1.13.10 ity of [place] [phone] [address] DIABETES CLINIC 2020-01-31 2020-01-31 Refill Doctor [facility] 1.2.840.114 [id number] Univers 00:00:00 00:00:00 Unassigned, Health 350.1.13.10 ity of [facility] 4.2.7.2.686 [place] as Professio [phone] [address] Office Building [facility] 2020-01-27 2020-01-27 Outpatient R [facility] [id number] Univers 14:15:00 14:15:00 DILCIA [facility] 2020-01-16 2020-01-16 Refill Jason [facility] 1.2.840.114 [id number] Univers 00:00:00 00:00:00 [facility] 350.1.13.10 ity [place] [phone] De dical nal 059 [facility] 2020-01-13 2020-01-13 Outpatient WALTER Simmons RADI Y000 [id number] [facility] 09:30:00 09:30:00 [facility] 2019-12-04 2019-12-04 Patient Doctor [place] 1.2.840.114 [id number] Univers 00:00:00 00:00:00 Secure Msg Unassigned, [facility] 350.1.13.10 ity of [place] 4.2.7.2.686 [place] Profess[place] [phone] De dical nal 044 [facility] 2019-11-27 2019-11-27 Patient Doctor [facility] 1.2.840.114 [id number] Univers 00:00:00 00:00:00 Secure Msg Unassigned, [facility] 350.1.13.10 [place] of [place] [phone] De dical nal 059 [facility] 2019-11-27 2019-11-27 Patient Jason, [facility] 1.2.840.114 [id number] Univers 00:00:00 00:00:00 Secure Msg Sendil Ashley Boothe 350.1.13.10 it[place] [phone] De dical nal 059 [facility] 2019-11-24 2019-11-24 Refill Jason [facility] 1.2.840.114 [id number] Univers 00:00:00 00:00:00 Sendil JulioHJostin Boothe 350.1.13.10 [place] [phone] De dical nal 9 [facility] 2019-10-13 2019-10-13 Refill Jason [facility] 1.2.840.114 [id number] Univers 00:00:00 00:00:00 Sendil [employer] [facility] 350.1.13.10 [place] [facility] [phone] [facility] Primary & 059 [facility] 2019-09-26 2019-10-01 Office Becca [facility] 1.2.840.114 [id number] Univers 16:33:02 13:29:06 Visit Iliana [facility] [place] 350.1.13.10 it y of [place] 4.2.7.2.686 [place] as Professio [phone] De dical nal [address] [place] Office Building One 2019-09-26 2019-09-26 Refill Scott [facility] 1.2.840.114 [id number] Univers 00:00:00 00:00:00 Shiwan [place] 350.1.13.10 i ty of [place] [phone] De dical nal 085 [facility] 2019-09-26 2019-09-26 Refill Doctor [facility] 1.2.840.114 [id number] Univers 00:00:00 00:00:00 Unassigned, [place] 350.1.13.10 ity of [place] [place] [phone] De dical nal 085 [facility] 2019-09-26 2019-09-26 Orders Doctor DANILO 1.2.840.114 [id number] Univers 00:00:00 00:00:00 Only Unassigned, VISHAL 350.1.13.10 ity of [facility] 4.2.7.2.686 [place] as [phone] [facility] 009 Branch 2019-09-26 2019-09-26 Patient Doctor [facility] 1.2.840.114 [id number] Univers 00:00:00 00:00:00 Secure Msg Unassigned, MULTISPEC 350.1.13.10 ity of [place] [phone] [facility] AND BABATUNDE 085 Branch [facility] 2019-09-18 2019-09-18 [facility] 1.2.840.114 [id number] Univers 09:59:00 23:59:00 Encounter Markel Brayan 350.1.13.10 ity of [place] [phone] [facility] 806 Branch 2019-09-18 2019-09-18 [facility] 1.2.840.114 [id number] Univers 09:12:00 09:58:00 Encounter Markel Brayan 350.1.13.10 ity of [place] [phone] [facility] 800 Branch 2019-09-18 2019-09-18 Orders Doctor DANILO 1.2.840.114 [id number] Univers 00:00:00 00:00:00 Only Unassigned, VISHAL 350.1.13.10 ity of [facility] 4.2.7.2.686 [place] as [phone] [facility] 009 Branch 2019-09-17 2019-09-17 Patient Doctor CHANDRA 1.2.814.609 [id number] Univers 00:00:00 00:00:00 Secure Msg Unassigned, [facility] 350.1.13.10 ity of [facility] 4.2.7.2.[place] [phone] [facility] [address] [place] 2019-08-29 2019-08-29 Patient Jason ORIMTIAZ 1.2.840.114 [id number] Univers 00:00:00 00:00:00 Secure Msg Jese Boothe 350.1.13.10 ity of [place] [phone] [address] 2019-04-29 2019-04-29 [facility] 1.2.840.114 [id number] Univers 00:00:00 00:00:00 Jese Boothe 350.1.13.10 ity of [place] [phone] [address] 2019-04-21 2019-04-21 Refill Jason [facility] 1.2.840.114 [id number] Univers 00:00:00 00:00:00 Sendil K.HJostin [place] 350.1.13.10 ity of [place] 4.2.[place].2.[place] [facility] [phone] De dical [facility] [address] Building 2019-04-15 2019-04-15 Refill Jason [facility] 1.2.840.114 [id number] Univers 00:00:00 00:00:00 Sendil [facility] 350.1.13.10 ity of [place]2.7.2.[place] [facility] [phone] [facility] Primary & 059 [facility] 2019-04-09 2019-04-09 Orders Doctor DANILO 1.2.840.114 [id number] Univers 00:00:00 00:00:00 Only Unassigned, VISHAL 350.1.13.10 ity of [place] 4.2.7.2.686 [place] [phone] [facility] 009 Branch 2018-05-24 2018-05-24 [facility] 21 [id number] Common 11:00:00 11:00:00 t [facility] Results Test Description Test Time Test Comments Results Result Comments Source ACT-ISTAT 2022-09-07 11:50:00 Test Item Value Reference Range Interpretation Comme nts ACT-ISTAT (test code = ACTI) 287 SEC 74-137 H Performed by certified wire stitcher operator at [facility] GLUCOSE [id number] 09:29:00 Test Item Value Reference Range Interpretation Comments GLUCOSE BEDSIDE (test 139 MG/DL 70-110 H [facility] by certified code = GLUBED) wire stitcher operator at [place] [facility] BASIC METABOLIC [id number] 11:19:00 Test Item Value Reference Range Interpretation Comments SODIUM (test code = 144 mEq/L 134-147 N NA) POTASSIUM (test code 4.0 mEq/L 3.4-5.0 N = K) CHLORIDE (test code 110 mEq/L 100-108 H = CL) CARBON DIOXIDE (test 25 mEq/l 21-33 N code = CO2) ANION GAP (test code 13 0-20 N = GAP) GLUCOSE (test code = 158 mg/dL 70-110 H GLU) BLOOD UREA NITROGEN 14 mg/dL 7-18 N (test code = BUN) GLOMERULAR 94.2 80-90 H The Glomerular FILTRATION RATE Filtration R ate is a (test code = GFR) calculated parameterbased on serum Creatinine, pat ient age and sex. GFR va luesless than 60 mL/min/ 1.73 square meters a re indicative ofCh ronic Kidney Disease. Values less than 15 mL/min/1.73squa re meters indicate Kidney failure. The calculation forGFR is based on the CKD-EPI (2020) calculat ion. This formulais race indifferent and is the recommended for kanika for GFRby the Natio nal Kidney Foundati on for Adults.The GFR will not calculate if th e sex is unknown or if thepatient's ag e is <18 years. CREATININE (test 0.9 mg/dL 0.6-1.3 N code = CREAT) CALCIUM (test code = 9.8 mg/dL 8.0-10.5 N CA) PROTHROMBIN [id number] 11:03:00 Test Item Value Reference Range Interpretation Comments PROTHROMBIN TIME 10.8 SECONDS 9.3-12.9 N PATIENT (test code = PTP) INTERNATIONAL NORMAL 1.0 0.8-1.2 N TARGET INR BY RATIO (test code = INDICATIO N Indication INR) INR1. Prophylax is of venous thrombos is 2.0 - 3.0 (orthoped ic surgery), Proph ylaxis of venous throm bosis (other than hig h-risk surgery), Treat ment of Deep Vein Thrombosis/Pulm onary Embolism, Preve ntion of systemic emb olism - Tissue heart va lves, Acute Myocardia l Infarction (to prevent systemic emboli sm), Valvular heart disease, Atrial Fibrillation, Bileaflet mecha nical valve in aortic position.2. Mec hanical prosthetic valv es (high risk), 2. 5 - 3.5 Presence of Lup us Anticoagulant o r Antiphospholipi d Antibodies, Pre vention of systemic emb olism - Acute Myocardia l Infarction (to prevent recurrent infar ct). CBC W/AUTO [id number] 11:03:00 Test Item Value Reference Range Interpretation Comments WHITE BLOOD CELL (test code = 9.0 x10 3/uL 4.5-11.0 N WBC) RED BLOOD CELL (test code = 4.78 x10 6/uL 4.00-5.60 N RBC) HEMOGLOBIN (test code = HGB) 14.3 g/dL 12.5-16.9 N HEMATOCRIT (test code = HCT) 41.7 % 37.5-50.7 N MEAN CELL VOLUME (test code = 87.2 fL 81.0-99.0 N MCV) MEAN CELL HGB (test code = MCH) 29.9 pg 27.0-33.0 N MEAN CELL HGB CONCETRATION 34.3 g/dL 33.0-37.0 N (test code = MCHC) RED CELL DISTRIBUTION WIDTH CV 13.2 % 11.5-14.5 N (test code = RDW) RED CELL DISTRIBUTION WIDTH SD 42.2 fL 37.0-54.0 N (test code = RDW-SD) PLATELET COUNT (test code = 211 x10 3/uL 150-400 N PLT) MEAN PLATELET VOLUME (test code 9.7 fL 7.0-9.0 H = MPV) NEUTROPHIL % (test code = NT%) 68.9 % 56.0-77.0 N IMMATURE GRANULOCYTE % (test 1.0 % 0.0-2.0 N code = IG%) LYMPHOCYTE % (test code = LY%) 20.5 % 14.0-32.0 N MONOCYTE % (test code = MO%) 5.7 % 4.8-9.0 N EOSINOPHIL % (test code = EO%) 3.2 % 0.3-3.7 N BASOPHIL % (test code = BA%) 0.7 % 0.0-2.0 N NUCLEATED RBC % (test code = 0.0 % 0-0 N NRBC%) NEUTROPHIL # (test code = NT#) 6.22 x10 3/uL 2.0-7.6 N IMMATURE GRANULOCYTE # (test 0.09 x10 3/uL 0.00-0.03 H code = IG#) LYMPHOCYTE # (test code = LY#) 1.85 x10 3/uL 1.0-3.8 N MONOCYTE # (test code = MO#) 0.51 x10 3/uL 0.1-0.8 N EOSINOPHIL # (test code = EO#) 0.29 x10 3/uL 0.0-0.2 H BASOPHIL # (test code = BA#) 0.06 x10 3/uL 0.0-0.2 N NUCLEATED RBC # (test code = 0.00 x10 3/uL 0.0-0.1 N NRBC#) MANUAL DIFF REQUIRED (test code NO = ANNA) - XR CHEST 2 [id number] 00:00:00 [facility] 1956 Sex: M FAX:John Lai MD [phone] [place]: St: PRE Name: KATHY GUTHRIE [facility] : 1956 Age/S: 65/M [address] [place] [address] Unit #: [id number] [place]: [place] [address] Phys: John Rose MD Acct: [id number] Dis Date: Status: PRE [facility] PHONE #: [phone] Exam Date: 09/05/2022 1045 FAX #: [phone] Reason: PREOP EXAMS: CPT CODE: [id number] XR CHEST 2 V 76945 PROCEDURE INFORMATION: Exam: XR Chest Exam date and time: 09/05/2022 10:42 AM Age: 65 years old Clinical indication: Other: Preop TECHNIQUE: Imaging protocol: Radiologic exam of the chest. Views: 2 views. PA and Lateral COMPARISON: No relevant prior studies available. FINDINGS: Lungs: Hyperinflated emphysematous lungs associated with mild pleural/parenchymal scarring in both lung bases and lung apices. Small bulla are also noted in both lung bases. No consolidation is seen to suggest pneumonia. Small indeterminate pulmonary nodule measuring 8 mm peripherally in the right mid lung. Suspect faint nipple shadows in both lung bases. Pleural spaces: Minimal left pleural effusion or pleural thickening. No definite pneumothorax. Heart/Mediastinum: Heart size at the upper limits of normal. Bones/joints: Mild to moderate thoracic spondylosis and facet joint arthrosis. No acute fracture or dislocation. IMPRESSION: 1. Hyperinflated emphysematous javan gs associated with mild pleural/parenchymal scarring in both lung bases and lung apices. Small bullaare also noted in both lung bases. No consolidation is seen to suggest pneumonia. 2. Minimal left pleural effusion or pleural thickening. 3. Small indeterminate pulmonary nodule measuring 8 mm peripherally in the right mid lung. Follow-up CT chest would be helpful for better characterization given lack of comparison images demonstrating long-term stability. at 1223 Reported and signed by: Javi Sim M.D. CC: John Rose MD Technologist: RT Dylan(Chemo) Trnscrd Date/Time/By: 09/05/2022 (1223) : By: [email or web address] Orig Print D/T: S: 09/05/2022 (1223) PAGE 1 Signed ReportCulture: [id number] 00:18:00 Test Item Value Reference Range Interpretation Comments Culture: Anaerobic (test Culture In Progress code = Culture: Anaerobic) [facility] [id number] 00:18:00 Test Item Value Reference Range Interpretation Comments Gram Stain Report Rare WBC's No Organisms (test code = Gram Seen Stain Report) [facility] Wound/Abscess w/Gram [id number] 00:18:00 Test Item Value Reference Range Interpretation Comments Culture: Wound/Abscess No Growth; Holding w/Gram Stain (test code = Culture: Wound/Abscess w/Gram Stain) [facility] MedaforCHEM [id number] 15:45:00 Test Item Value Reference Range Interpretation Comments Glucose Lvl (test code = Glucose Lvl) 113 70-99 [place] 768312-07-26 15:45:00 Test Item Value Reference Range Interpretation Comments BUN (test code = BUN) 16 7-22 [place] 768312-07-26 15:45:00 Test Item Value Reference Range Interpretation Comments Creatinine Lvl (test code = Creatinine 0.94 0.50-1.40 Lvl) [place] 768312-07-26 15:45:00 Test Item Value Reference Range Interpretation Comments Sodium Lvl (test code = Sodium Lvl) 143 135-145 [place] 768312-07-26 15:45:00 Test Item Value Reference Range Interpretation Comments Potassium Lvl (test code = Potassium 4.3 3.5-5.1 Lvl) [place] 768312-07-26 15:45:00 Test Item Value Reference Range Interpretation Comments Chloride Lvl (test code = Chloride Lvl) 112 95-109 [place] 768312-07-26 15:45:00 Test Item Value Reference Range Interpretation Comments CO2 (test code = CO2) 29 24-32 [place] 768312-07-26 15:45:00 Test Item Value Reference Range Interpretation Comments Calcium Lvl (test code = Calcium Lvl) 9.3 8.5-10.5 [place] 768312-07-26 15:45:00 Test Item Value Reference Range Interpretation Comments AGAP (test code = AGAP) 6.3 10.0-20.0 [place] 768312-07-26 15:45:00 Test Item Value Reference Range Interpretation Comments eGFR (test code = eGFR) 89 [place] 916742-07-26 15:45:00 Test Item Value Reference Range Interpretation Comments WBC (test code = WBC) 9.4 3.7-10.4 [place] [address]-07-26 15:45:00 Test Item Value Reference Range Interpretation Comments RBC (test code = RBC) 4.51 4.70-6.10 [place] [address]-07-26 15:45:00 Test Item Value Reference Range Interpretation Comments Hgb (test code = Hgb) 13.7 14.0-18.0 [place] [address]-07-26 15:45:00 Test Item Value Reference Range Interpretation Comments Hct (test code = Hct) 40.8 42.0-54.0 [place] [address]-07-26 15:45:00 Test Item Value Reference Range Interpretation Comments MCV (test code = MCV) 90.5 80.0-94.0 [place] [address]-07-26 15:45:00 Test Item Value Reference Range Interpretation Comments MCH (test code = MCH) 30.5 pg 27.0-31.0 [place] [address]-07-26 15:45:00 Test Item Value Reference Range Interpretation Comments MCHC (test code = MCHC) 33.7 32.0-36.0 [place] 916742-07-26 15:45:00 Test Item Value Reference Range Interpretation Comments RDW (test code = RDW) 14.6 11.5-14.5 [place] [address]-07-26 15:45:00 Test Item Value Reference Range Interpretation Comments Platelet (test code = Platelet) 240 133-450 [place] 916742-07-26 15:45:00 Test Item Value Reference Range Interpretation Comments MPV (test code = MPV) 7.1 7.4-10.4 [place] [address]-07-26 15:45:00 Test Item Value Reference Range Interpretation Comments Segs (test code = Segs) 67.1 45.0-75.0 [place] [address]-07-26 15:45:00 Test Item Value Reference Range Interpretation Comments Lymphocytes (test code = Lymphocytes) 21.6 20.0-40.0 [place] [address]-07-26 15:45:00 Test Item Value Reference Range Interpretation Comments Monocytes (test code = Monocytes) 6.8 2.0-12.0 [place] [address]-07-26 15:45:00 Test Item Value Reference Range Interpretation Comments Eosinophils (test code = 3.7 See_Comment [A utomated message] The Eosinophils) system which ge nerated this result tra nsmitted reference range : <=4.0. The reference r beka was not used to int erpret this result as normal/abnormal . [place] 916742-07-26 15:45:00 Test Item Value Reference Range Interpretation Comments Basophils (test code = 0.8 See_Comment [Aut omated message] The Basophils) system which ge nerated this result tra nsmitted reference range : <=1.0. The reference r beka was not used to int erpret this result as normal/abnormal . [id number] 15:45:00 Test Item Value Reference Range Interpretation Comments Neutrophils # (test code = Neutrophils 6.3 1.5-8.1 #) [facility] RockAhxhpidLZLQKYYNXO5119-04-09 15:45:00 Test Item Value Reference Range Interpretation Comments Lymphocytes # (test code = Lymphocytes 2.0 1.0-5.5 #) [facility] M[id number] 15:45:00 Test Item Value Reference Range Interpretation Comments Monocytes # (test code 0.6 See_Comment [Aut omated message] The = Monocytes #) system which generated this result tra nsmitted reference range : <=0.8. The reference r beka was not used to int erpret this result as normal/abnormal . [facility] MichiganDyewuwlQSQFCLMGGM8972-57-79 15:45:00 Test Item Value Reference Range Interpretation Comments Eosinophils # (test code 0.3 See_Comment [A utomated message] The = Eosinophils #) system whic h generated this result tra nsmitted reference range : <=0.5. The reference r beka was not used to int erpret this result as normal/abnormal . [facility] MichiganVfggbatFZEWELRGIX2452-38-79 15:45:00 Test Item Value Reference Range Interpretation Comments Basophils # (test code 0.1 See_Comment [Aut omated message] The = Basophils #) system which generated this result tra nsmitted reference range : <=0.2. The reference r beka was not used to int erpret this result as normal/abnormal . [facility] [id number] 15:45:00 Test Item Value Reference Range Interpretation Comments Hgb A1C (test code = Hgb A1C) 6.3 [facility] [employer] [id number] 17:00:00 Test Item Value Reference Range Interpretation Comments Chloride Lvl (test code = Chloride Lvl) 114 95-109 [facility] [employer] [id number] 17:00:00 Test Item Value Reference Range Interpretation Comments CO2 (test code = CO2) 24 24-32 [facility] [place] 910812-05-05 17:00:00 Test Item Value Reference Range Interpretation Comments Calcium Lvl (test code = Calcium Lvl) 9.1 8.5-10.5 [place] 768312-05-05 17:00:00 Test Item Value Reference Range Interpretation Comments AGAP (test code = AGAP) 10.0 10.0-20.[address]05-05 17:00:00 Test Item Value Reference Range Interpretation Comments eGFR (test code = eGFR) 87 [place] [address]-05-05 17:00:00 Test Item Value Reference Range Interpretation Comments Segs (test code = Segs) 70.1 45.0-75.0 [place] [address]-05-05 17:00:00 Test Item Value Reference Range Interpretation Comments Lymphocytes (test code = Lymphocytes) 20.2 20.0-40.0 [place] [address]-05-05 17:00:00 Test Item Value Reference Range Interpretation Comments Monocytes (test code = Monocytes) 6.3 2.0-12.0 [place] [address]-05-05 17:00:00 Test Item Value Reference Range Interpretation Comments Eosinophils (test code = 2.7 See_Comment [A utomated message] The Eosinophils) system which ge nerated this result tra nsmitted reference range : <=4.0. The reference r beka was not used to int erpret this result as normal/abnormal . [place] [address]-05-05 17:00:00 Test Item Value Reference Range Interpretation Comments Basophils (test code = 0.7 See_Comment [Aut omated message] The Basophils) system which ge nerated this result tra nsmitted reference range : <=1.0. The reference r beka was not used to int erpret this result as normal/abnormal . [place] [address]-05-05 17:00:00 Test Item Value Reference Range Interpretation Comments Neutrophils # (test code = Neutrophils 6.1 1.5-8.1 #) [place] [address]-05-05 17:00:00 Test Item Value Reference Range Interpretation Comments Lymphocytes # (test code = Lymphocytes 1.7 1.0-5.5 #) [place] [address]-05-05 17:00:00 Test Item Value Reference Range Interpretation Comments Monocytes # (test code 0.5 See_Comment [Aut omated message] The = Monocytes #) system which generated this result tra nsmitted reference range : <=0.8. The reference r beka was not used to int erpret this result as normal/abnormal . [facility] GrapevineIoxhedaEJXFEJXHWQ8496-21-72 17:00:00 Test Item Value Reference Range Interpretation Comments Eosinophils # (test code 0.2 See_Comment [A utomated message] The = Eosinophils #) system whic h generated this result tra nsmitted reference range : <=0.5. The reference r beka was not used to int erpret this result as normal/abnormal . [facility] GrapevineXbreznbBLVWRJQXKK3406-20-28 17:00:00 Test Item Value Reference Range Interpretation Comments Basophils # (test code 0.1 See_Comment [Aut omated message] The = Basophils #) system which generated this result tra nsmitted reference range : <=0.2. The reference r beka was not used to int erpret this result as normal/abnormal . [facility] GrapevineIynegohQCQHCRRLEU4472-33-73 17:00:00 Test Item Value Reference Range Interpretation Comments WBC (test code = WBC) 8.6 3.7-10.4 [facility] [id number] 17:00:00 Test Item Value Reference Range Interpretation Comments RBC (test code = RBC) 4.48 4.70-6.10 [facility] GrapevineDpugjmlHUGDZFRAGY5757-46-16 17:00:00 Test Item Value Reference Range Interpretation Comments Hgb (test code = Hgb) 13.7 14.0-18.0 [place] 916742-05-05 17:00:00 Test Item Value Reference Range Interpretation Comments Hct (test code = Hct) 40.6 42.0-54.0 [place] 916742-05-05 17:00:00 Test Item Value Reference Range Interpretation Comments MCV (test code = MCV) 90.7 80.0-94.0 [facility] GrapevineLdlrkbhGNEMHYPZGH8528-44-47 17:00:00 Test Item Value Reference Range Interpretation Comments MCH (test code = MCH) 30.6 pg 27.0-31.0 [facility] GrapevineKjthyzcGANGXQCRCK5942-75-77 17:00:00 Test Item Value Reference Range Interpretation Comments MCHC (test code = MCHC) 33.7 32.0-36.0 [facility] MichiganXqqccazGVHDETRFGL5422-03-07 17:00:00 Test Item Value Reference Range Interpretation Comments RDW (test code = RDW) 15.0 11.5-14.5 [facility] RockLbaljciDQBXLSIFOS4057-76-59 17:00:00 Test Item Value Reference Range Interpretation Comments Platelet (test code = Platelet) 219 133-450 [facility] RockGhqlgntUYPZJDYDLH7269-39-26 17:00:00 Test Item Value Reference Range Interpretation Comments MPV (test code = MPV) 8.4 7.4-10.4 [facility] [id number] 17:00:00 Test Item Value Reference Range Interpretation Comments Hgb A1C (test code = Hgb A1C) 6.0 [facility] [id number] 17:00:00 Test Item Value Reference Range Interpretation Comments Glucose Lvl (test code = Glucose Lvl) 97 70-99 [facility] [id number] 17:00:00 Test Item Value Reference Range Interpretation Comments BUN (test code = BUN) 21 7-22 [facility] [id number] 17:00:00 Test Item Value Reference Range Interpretation Comments Creatinine Lvl (test code = Creatinine 0.91 0.50-1.40 Lvl) [facility] [id number] 17:00:00 Test Item Value Reference Range Interpretation Comments Sodium Lvl (test code = Sodium Lvl) 144 135-145 [facility] [id number] 17:00:00 Test Item Value Reference Range Interpretation Comments Potassium Lvl (test code = Potassium 4.0 3.5-5.1 Lvl) [facility] LOWER EXTRM W/O C [id number] 10:22:00 Patient Name: KATHY GUTHRIE Unit No: [id number] EXAMS: CPT CODE: [id number] CT LOWER EXTRM W/[place] [address] [place] OF THE LEFT ANKLE WITH SAGITTAL AND CORONAL RECONSTRUCTIONS DIAGNOSIS: Screws traverse the tibiotalar joint. There is no evidence for bony fusion. COMMENT: COMPARISON: No prior exams available.Scans were performed with thin sections and reconstructions were obtained. CT radiation dose optimization is achieved for this examination by the use of a CT protocol in accordance with ACR practice standards and adherence to intern retail's recommendations. Postsurgical changes as described. There is narrowing of the tibiotalar joint without fusion. at 1022 Reported and signed by: Shadi Knxo MD CC: Ronan Simmons MD Technologist: Jose G Collazo,RT(R) CTDI: DLP: Trnscrpt: 01/13/2020 (1022) [email or web address] [facility] NAME: KATHY GUTHRIE [address] [facility] PHYS: Ronan Hernandez MD : 1955 AGE: 64SEX: M [place] [address] LOC: Y.RAD PHONE #: [phone] EXAM DATE: 01/13/2020 STATUS: REG CLI FAX #: [phone] RAD #: D/C DT PAGE 1 Signed Report Patient Name: KATHY GUTHRIE Unit No: [id number] EXAMS: CPT CODE: [id number] [place] LOWER EXTRM W/[place] [address] (Continued) Orig Print D/T: S: 01/13/2020 (1025) [facility] NAME: KATHY GUTHRIE [address] [facility] PHYS: Ronan Hernandez MD : 1955 AGE: 64 SEX: M [place] [address] LOC: Y.RAD PHONE #: [phone] EXAM DATE: 01/13/2020 STATUS: REG CLI FAX #: [phone] RAD #: D/C DT PAGE 2 Signed ReportBASI METABOLIC [id number] 17:49:00 Test Item Value Reference Range Interpretation Comments SODIUM (test code = 143 mmol/L 136-145 N NA) POTASSIUM (test code = 4.1 mmol/L 3.5-5.1 N K) CHLORIDE (test code = 106.0 mmol/L 98-107 N CL) CARBON DIOXIDE (test 23.6 mmol/L 21-32 N code = CO2) GLUCOSE (test code = 77 mg/dL 70-110 N GLU) BLOOD UREA NITROGEN 16 mg/dL 7-18 N (test code = BUN) GLOMERULAR FILTRATION 78.9 >60 Unit o f measure: RATE (test code = GFR) mL/mi n/1.73 [id number] Range:Healthy Adults >90 mL/min/1.73 m2 For Chronic Kidney Disease: Stage II Mild Decrease i n GFR 60-90 Stage III Moderate Decrea se in GFR 30-59 S tage IV Severe Decre ase in GFR 15-29 [facility] <15 CREATININE (test code 0.96 mg/dL 0.55-1.30 N = CREAT) CALCIUM (test code = 9.0 mg/dL 8.2-10.1 N CA)
[2022-12-25] MEDS ORDERED: ONDANSETRON 4 MG/2 ML VIAL ONE (20:18)
[2022-12-25] MEDS ORDERED: MECLIZINE HCL 12.5 MG TAB ONE (20:18)
[2022-12-25] MEDS ORDERED: Ringers Lactate 1,000 ML IV ONE (20:19)
[2022-12-25 20:20] LABS: Absolute Lymphocytes (CBC) 2.2 K/uL (0.7-4.9); Lymphocytes % 20.5 % (15.3-44.8); MCV 86.4 fL (80-100); MPV 7.9 fL (7.6-11.3); RBC Red Blood Cell Count 4.17 M/uL (4.33-5.43)
[2022-12-25] MEDS ORDERED: METOCLOPRAMIDE 10 MG/2mL INJ ONE (20:45)
[2022-12-25 20:46] LABS: Albumin 3.2 g/dL (3.4-5.0); Bilirubin Direct 0.3 mg/dL (0-0.2); Bilirubin Total 1.1 mg/dL (0.2-1.0); Potassium 2.9 mEq/L (3.5-5.1); Troponin High Sensitivity 6.3 pg/mL (<58.9)
--- NOTE | 2022-12-25 21:01 | RAD REPORT ---
EXAM DESCRIPTION: RAD - Chest Single View - 12/25/2022 8:43 pm CLINICAL HISTORY: COPD COMPARISON: Chest Pa And Lat (2 Views) dated 07/26/2022; Chest Pa And Lat (2 Views) dated 01/30/2019; Abdomen 1 View (KUB) dated 02/02/2016; Abdomen 1 View (KUB) dated 01/17/2016Chest Pa And Lat (2 Views) d ated 07/26/2022; Chest Pa And Lat (2 Views) dated 01/30/2019; Abdomen 1 View (KUB) dated 02/02/2016; Abdo men 1 View (KUB) dated 01/17/2016; Stone Protocol dated 03/11/2016 FINDINGS: Lines: None. Lungs: Diffuse increased prominence of the pulmonary interstitium. Pleural: Small left pleural effusion. Cardiac: Cardiomegaly. Mediastinum: Within normal limits. Bones: No acute fractures. Other: None IMPRESSION: Mild increased prominence of the pulmonary interstitium which could reflect developing e mikayla or atypical infectious process.
[2022-12-25] MEDS ORDERED: POTASSIUM CL SA 10 MEQ TAB PO ONE (22:16)
[2022-12-25] MEDS ORDERED: NA CHLORIDE 0.9% 100 ML ONE (22:17)
[2022-12-25] MEDS ORDERED: PIPERACIL/TAZO 3.375 GM VIAL IV ONE (22:17)
--- NOTE | 2022-12-26 00:02 | ER ---
Nurse's Notes [facility] Name: Harsh Guthrie Age: 67 yrs Sex: Male : 1955 Arrival Date: 12/25/2022 Time: 19:44 Bed 5 Private MD: Diagnosis: Syncope Near;Acute dizziness, near syncopal episode, hypokalemia, nausea without vomit Presentation: 12/25 19:52 Chief complaint: EMS states: called out for a syncopal episode. Coronavirus screen: At as6 this time, the client does not indicate any symptoms associated with coronavirus-19. Ebola Screen: No symptoms or risks identified at this time. Initial Sepsis Screen: Does the patient meet any 2 criteria? No. Patient's initial sepsis screen is negative. Does the patient have a suspected source of infection? No. Patient's initial sepsis screen is negative. Risk Assessment: Do you want to hurt yourself or someone else? Patient reports no desire to harm self or others. Onset of symptoms was December 25, 2022. 19:52 Acuity: TAMI 3 as6 19:52 Method Of Arrival: EMS: [facility] as6 19:54 Care prior to arrival: Medication(s) given: Normal saline infusion, 1000 mL, IV as6 initiated. 18 GA, in the left forearm. Historical: - Allergies: 19:52 No Known Allergies; as6 - PMHx: 19:52 COPD; Hyperlipidemia; Hypertension; restless leg syndrome; Sleep Apnea; WPW- corrected as6 with cardiac ablation; - Immunization history:: Client reports receiving the 2nd dose of the Covid vaccine, moderna. - Social history:: Patient/guardian denies using alcohol, street drugs, IV drugs, caffeine, over the counter diet medications, Smoking status: Patient reports the use of cigarette tobacco products, smokes one pack cigarettes per day. - Family history:: not pertinent. Screenin/01 00:09 [facility] ED Fall Risk Assessment (Adult) Score/Fall Risk Level 0 - 2 = Low Risk. Abuse as6 screen: Denies threats or abuse. Denies injuries from another. Nutritional screening: No deficits noted. Tuberculosis screening: No symptoms or risk factors identified. Assessment: 12/25 20:00 General: Appears in no apparent distress. comfortable, Behavior is calm, cooperative, jb4 appropriate for age. Pain: Denies pain. Neuro: Level of Consciousness is awake, alert, obeys commands, Oriented to person, place, time, situation, Reports dizziness. Cardiovascular: Patient's skin is warm and dry. Respiratory: Airway is patent Respiratory effort is even, unlabored, Respiratory pattern is regular, symmetrical. GI: No signs and/or symptoms were reported involving the gastrointestinal system. : No signs and/or symptoms were reported regarding the genitourinary system. EENT: No signs and/or symptoms were reported regarding the EENT system. Derm: Skin is intact, Skin is pink, warm \T\ dry. Musculoskeletal: Circulation, motion, and sensation intact. Range of motion: intact in all extremities. 20:20 Reassessment: Verified order for 8mg of Zofran with provider due to EKG reading jb4 reporting prolonged QT interval, provider states that medication order is safe and to give it and other meds as ordered. 22:01 Reassessment: Patient appears in no apparent distress at this time. Patient and/or jb4 family updated on plan of care and expected duration. Pain level reassessed. Patient is alert, oriented x 3, equal unlabored respirations, skin warm/dry/pink. Vital Signs: 19:52 BP 135 / 70; Pulse 66; Resp 20 S; Temp 97.7(O); Pulse Ox 93% on R/A; Weight 104.33 kg as6 (R); Height 6 ft. 3 in. (R); Pain 0/10; 20:00 BP 110 / 58; Pulse 62; Resp 13; Pulse Ox 95% on 2 lpm NC; jb4 21:45 BP 118 / 54; Pulse 73; Resp 14; Pulse Ox 96% on R/A; jb4 23:00 BP 126 / 64; Pulse 76; Resp 21 S; Pulse Ox 97% on R/A; as6 12/26 00:09 BP 126 / 67; Pulse 74; Resp 17 S; Pulse Ox 96% on R/A; as6 12/25 19:52 Body Mass Index 28.75 (104.33 kg, 190.5 cm) as6 12/25 19:52 Pain Scale: Adult as12/25 20:00 Pt placed on 2L NC while sleeping, reports normally wearing Cpap at home. jb4 ED Course: 19:45 Patient arrived in ED. rv1 19:46 Potepalov, Lul, MD is Attending Physician. sp4 19:52 Desean Irizarry, ERIN is Primary Nurse. as6 19:52 Arm band placed on. as6 19:54 Triage completed. as6 20:08 Basic Metabolic Panel Sent. jb4 20:08 LFT's Sent. 4 20:08 CBC with Diff Sent. 4 20:08 NT PRO-BNP Sent. 4 20:08 Troponin HS Sent. 4 20:45 XRAY Chest (1 view) In Process Unspecified. EDMS 23:35 Troponin High Sensitivity Sent. 12/26 00:09 Bed in low position. Call light in reach. Side rails up X2. as6 00:10 No provider procedures requiring assistance completed. IV discontinued, intact, as6 bleeding controlled, No redness/swelling at site. Pressure dressing applied. Administered Medications: 12/25 20:30 Drug: Ondansetron IVP 8 mg Route: IVP; Site: left hand; 12/26 00:11 Follow up: Response: No adverse reaction as6 12/25 20:36 Drug: Lactated Ringers Solution IV 1000 ml Route: IV; Rate: 150 bolus; Site: left hand; 12/26 00:11 Follow up: Response: No adverse reaction; IV Status: Completed infusion; IV Intake: as6 1000ml 12/25 20:48 Drug: Meclizine PO 25 mg Route: PO; 12/26 00:11 Follow up: Response: No adverse reaction as6 12/25 20:48 Drug: metoCLOPramide IVP 10 mg Route: IVP; Site: left hand; 12/26 00:11 Follow up: Response: No adverse reaction as6 12/25 22:32 Drug: Potassium Chloride PO 40 mEq Route: PO; 12/26 00:11 Follow up: Response: No adverse reaction as6 Medication: 00:09 VIS not applicable for this client. as6 Intake: 00:11 IV: 1000ml; Total: 1000ml. as6 Outcome: 00:01 Discharge ordered by . sp4 00:10 Discharged to home ambulatory, with significant other. as6 00:10 Condition: stable 00:10 Discharge instructions given to patient, significant other, Instructed on discharge as6 instructions, follow up and referral plans. medication usage, Demonstrated understanding of instructions, follow-up care, medications, Prescriptions given X 1. 00:12 Patient left the ED. as6 Signatures: Dispatcher [employer] EDPatrice Claudio RN RN jb4 Desean Irizarry RN RN as6 Jennifer Garcia rv1 Lul Rodriguez MD MD sp4
--- NOTE | 2022-12-26 00:02 | EDPHYS ---
Physician Documentation [facility] Name: Harsh Guthrie Age: 67 yrs Sex: Male : 1955 Arrival Date: 12/25/2022 Time: 19:44 Bed 5 Private MD: ED Physician Lul Rodriguez HPI: 12/25 19:47 This 67 yrs old Male presents to ER via Unassigned with complaints of sp4 dizziness, nausea, near syncope. 19:48 67-year-old male with a history of diabetes, COPD, coronary artery disease presents sp4 from home after he felt dizzy, lightheaded, and almost passed out after he did some work in the backyard. Patient decided to go outside smoking cigarettes and felt unwell and near syncopal. Patient's administered sublingual nitroglycerin tablet although patient denied any chest pain. On arrival with EMS patient states he is feeling nauseated and unwell. Patient denied chest pain, patient states he is chronic smoker with history of COPD but he is not on home oxygen. . Historical: - Allergies: 19:52 No Known Allergies; as6 - PMHx: 19:52 COPD; Hyperlipidemia; Hypertension; restless leg syndrome; Sleep Apnea; WPW- corrected as6 with cardiac ablation; - Immunization history:: Client reports receiving the 2nd dose of the Covid vaccine, moderna. - Social history:: Patient/guardian denies using alcohol, street drugs, IV drugs, caffeine, over the counter diet medications, Smoking status: Patient reports the use of cigarette tobacco products, smokes one pack cigarettes per day. - Family history:: not pertinent. ROS: 19:48 Constitutional: Negative for fever, chills, and weight loss, positive for generalized sp4 weakness, dizziness, near syncope Eyes: Negative for injury, pain, redness, and discharge, ENT: Negative for injury, pain, and discharge, Neck: Negative for injury, pain, and swelling, Cardiovascular: Negative for chest pain, palpitations, and edema, positive for near syncopal episode Respiratory: Negative for shortness of breath, cough, wheezing, and pleuritic chest pain, Abdomen/GI: Negative for abdominal pain, vomiting, diarrhea, and constipation, positive for nausea negative for vomiting Back: Negative for injury and pain, : Negative for injury, bleeding, discharge, and swelling, MS/Extremity: Negative for injury and deformity, Skin: Negative for injury, rash, and discoloration, Neuro: Negative for headache, weakness, numbness, tingling, and seizure, Psych: Negative for depression, anxiety, Allergy/Immunology: Negative for hives, rash, and allergies Endocrine: Negative for neck swelling, polydipsia, polyuria, polyphagia, and weight changes Hematologic/Lymphatic: Negative for swollen nodes, abnormal bleeding, and unusual bruising Exam: 19:48 Constitutional: This is a well developed, well nourished patient who is awake, alert, sp4 uncomfortable appearing male with generalized weakness, not able to stand up at this time. Mild distress secondary to nausea Head/Face: Normocephalic, atraumatic. Eyes: Pupils equal round and reactive to light, extra-ocular motions intact. Lids and lashes normal. Conjunctiva and sclera are not injected. Cornea within normal limits. Periorbital areas with no swelling, redness, or edema. ENT: Nares patent. No nasal discharge, no septal abnormalities noted. Tympanic membranes are normal and external auditory canals are clear. Oropharynx with no redness, swelling, or masses, exudates, or evidence of obstruction, uvula midline. Mucous membranes moist. Neck: Trachea midline, no thyromegaly or masses palpated, and no cervical lymphadenopathy. Supple, full range of motion without nuchal rigidity, or vertebral point tenderness. No Meningismus. Chest/axilla: Normal chest wall appearance and motion. Nontender with no deformity. No lesions are appreciated. Cardiovascular: Regular rate and rhythm with a normal S1 and S2. No gallops, murmurs, or rubs. Normal PMI, no JVD. No pulse deficits. Respiratory: Lungs have equal breath sounds bilaterally, clear to auscultation and percussion. No rales, rhonchi or wheezes noted. No increased work of breathing, no retractions or nasal flaring. Abdomen/GI: Soft, non-tender, with normal bowel sounds. No distension or tympany. No guarding or rebound. No evidence of tenderness throughout. Back: No spinal tenderness. No costovertebral tenderness. Skin: Warm, dry with normal turgor. with no rashes, no lesions, and no evidence of cellulitis. Pale skin MS/ Extremity: Pulses equal, no cyanosis. Neurovascular intact. Full, normal range of motion. Neuro: Awake and alert, GCS 15, oriented to person, place, time, and situation. Cranial nerves II-XII grossly intact. Motor strength 5/5 in all extremities. Sensory grossly intact. Psych: Awake, alert, with orientation to person, place and time. Behavior, mood, and affect are within normal limits 19:55 ECG was reviewed by the Attending Physician. EKG time 1951, ventricular rate 64 bpm, sp4 normal sinus rhythm, no ST elevation or depression, no acute acute ischemia, no signs of ectopy Vital Signs: 19:52 BP 135 / 70; Pulse 66; Resp 20 S; Temp 97.7(O); Pulse Ox 93% on R/A; Weight 104.33 kg as6 (R); Height 6 ft. 3 in. (R); Pain 0/10; 20:00 BP 110 / 58; Pulse 62; Resp 13; Pulse Ox 95% on 2 lpm NC; jb4 21:45 BP 118 / 54; Pulse 73; Resp 14; Pulse Ox 96% on R/A; jb4 23:00 BP 126 / 64; Pulse 76; Resp 21 S; Pulse Ox 97% on R/A; as6 05 00:09 BP 126 / 67; Pulse 74; Resp 17 S; Pulse Ox 96% on R/A; as6 12/25 19:52 Body Mass Index 28.75 (104.33 kg, 190.5 cm) as6 12/25 19:52 Pain Scale: Adult as6 12/25 20:00 Pt placed on 2L NC while sleeping, reports normally wearing Cpap at home. jb4 MDM: 20:15 Patient medically screened. sp4 23:59 Differential Diagnosis altered mental status. Data reviewed: vital signs, nurses notes, sp4 EMS record, old medical records, lab test result(s), EKG, radiologic studies, plain films. Consideration of Admission/Observation Escalation of care including admission/observation considered. ED course: P troponin is negative, repeat EKG reveals normal sinus rhythm, there is incomplete right bundle branch block. Patient states he is feeling back to normal and he would like to be released home. Patient denied chest pain or shortness of breath, denied dizziness and states he is feeling much better. Patient will be discharged home with as needed medicine for nausea and advised to practice bedrest for the next 12 hours.. 12/25 19:47 Order name: Basic Metabolic Panel; Complete Time: 22:02 sp4 12/25 19:47 Order name: CBC with Diff; Complete Time: 20:25 sp4 12/25 19:47 Order name: LFT's; Complete Time: 22:02 sp4 12/25 19:47 Order name: NT PRO-BNP; Complete Time: 22:02 sp4 12/25 19:47 Order name: Troponin HS; Complete Time: 22:02 sp4 12/25 22:28 Order name: Troponin High Sensitivity; Complete Time: 23:57 sp4 12/25 19:47 Order name: XRAY Chest (1 view); Complete Time: 22:02 sp4 12/25 19:47 Order name: EKG; Complete Time: 19:48 sp4 12/25 19:47 Order name: Cardiac monitoring; Complete Time: 19:52 sp4 12/25 19:47 Order name: EKG - Nurse/Tech; Complete Time: 19:54 sp4 12/25 19:47 Order name: IV Saline Lock; Complete Time: 19:52 sp4 12/25 19:47 Order name: Labs collected and sent; Complete Time: 20:08 sp4 12/25 19:47 Order name: O2 Per Protocol; Complete Time: 19:52 sp4 12/25 19:47 Order name: O2 Sat Monitoring; Complete Time: 19:52 sp4 12/25 22:28 Order name: EKG - Nurse/Tech; Complete Time: 23:35 sp4 EC:55 Rate is 84 beats/min. Rhythm is regular, Normal Sinus Rhythm. QRS [place] is Normal. [place] sp4 interval is normal. QRS interval is normal. T waves are Normal. No ST changes noted. Clinical impression: No evidence of ischemia. Interpreted by me. Administered Medications: 20:30 Drug: Ondansetron IVP 8 mg Route: IVP; Site: left hand; 12/26 00:11 Follow up: Response: No adverse reaction as6 12/25 20:36 Drug: Lactated Ringers Solution IV 1000 ml Route: IV; Rate: 150 bolus; Site: left hand; 12/26 00:11 Follow up: Response: No adverse reaction; IV Status: Completed infusion; IV Intake: as6 1000ml 12/25 20:48 Drug: Meclizine PO 25 mg Route: PO; jb4 12/26 00:11 Follow up: Response: No adverse reaction as6 12/25 20:48 Drug: metoCLOPramide IVP 10 mg Route: IVP; Site: left hand; jb4 12/26 00:11 Follow up: Response: No adverse reaction as6 12/25 22:32 Drug: Potassium Chloride PO 40 mEq Route: PO; jb4 12/26 00:11 Follow up: Response: No adverse reaction as6 Disposition Summary: 12/26/22 00:01 Discharge Ordered Location: Home sp4 Problem: new sp4 Symptoms: have improved sp4 Condition: Stable sp4 Diagnosis - Syncope Near sp4 - Acute dizziness, near syncopal episode, hypokalemia, nausea without vomit sp4 Followup: sp4 - With: Private Physician - When: 1 - 2 days - Reason: Recheck today's complaints Discharge Instructions: - Discharge Summary Sheet sp4 - Near-Syncope sp4 Forms: - Thank You Letter sp4 Prescriptions: - Zofran 4 mg Oral Tablet - take 1 tablet by ORAL route every 6 hours As needed; 20 tablet; Refills: 0, sp4 Product Selection Permitted Signatures: Dispatcher [employer] Patrice Davis RN RN jb4 Desean Irizarry RN RN as6 Lul Rodriguez MD MD sp4
[2022-12-26 00:45] VITALS: TEMP 97.7
[2022-12-26 00:52] VITALS: BP 126/67; O2SAT 96
--- NOTE | 2022-12-27 08:12 | EKG ---
Test Date: 2022-12-25 Test Time: 19:52:56 Ticker Wirer: AKASH MEASUREMENT RESULTS: Intervals: Rate: 64 FL: 184 QRSD: 108 QT: 454 QTc: 468 [place]: P: 52 FL: 184 QRS: -24 T: 47 INTERPRETIVE STATEMENTS: Normal sinus rhythm Incomplete right bundle branch block ST & T wave abnormality, consider anterior ischemia Prolonged QT Abnormal ECG Compared to ECG 07/26/2022 09:37:13 Possible ischemia now present Prolonged QT interval now present ST (T wave) deviation still present Electronically Signed On 12-27-22 08:11:07 CDT by Abdon Borwning
--- NOTE | 2022-12-28 14:12 | EKG ---
Test Date: 2022-12-25 Test Time: 23:08:08 Airfield Operations Specialist: AKASH MEASUREMENT RESULTS: Intervals: Rate: 73 KS: 176 QRSD: 114 QT: 426 QTc: 469 [place]: P: 12 KS: 176 QRS: 65 T: 9 INTERPRETIVE STATEMENTS: Normal sinus rhythm Incomplete right bundle branch block ST & T wave abnormality, consider anterior ischemia Prolonged QT Abnormal ECG Compared to ECG 12/25/2022 19:52:56 No significant changes Electronically Signed On 12-28-22 14:09:27 CDT by John Rose
== END 2022-12-26 00:12 | disposition home or self-care (01) ==
LOC: ER 19:44
DX: E87.6 Hypokalemia (principal); R11.2 Nausea with vomiting, unspecified; R42 Dizziness and giddiness; I10 Essential (primary) hypertension; J44.9 Chronic obstructive pulmonary disease, unspecified
CPT/HCPCS: 96361; 93005; 85025; 80048; 36415; 80076; 84484 ×2; 83880; 71045; 96375; 96374; 99284; J8597; J2765; J2543; J2405; J7120

== ENCOUNTER 2023-01-13 06:30 | Day surgery (SDC) | payer OTHER ==
[2023-01-09 13:11] LABS: Absolute Lymphocytes (CBC) 1.8 K/uL (0.7-4.9); Hematocrit 38.5 % (39.6-49.0); Lymphocytes % 21.8 % (15.3-44.8); MCV 88.1 fL (80-100); MPV 8.2 fL (7.6-11.3); RBC Red Blood Cell Count 4.37 M/uL (4.33-5.43)
[2023-01-09 13:36] LABS: Potassium 4.2 mEq/L (3.5-5.1)
[2023-01-09 13:42] LABS: Protime INR 0.89
--- NOTE | 2023-01-10 07:48 | EKG ---
Test Date: 2023-01-09 Test Time: 12:53:01 Gambling Cashier: ROBERTO MEASUREMENT RESULTS: Intervals: Rate: 71 [place]: 174 QRSD: 102 QT: 386 QTc: 419 [place]: P: 60 [place]: 174 QRS: -16 T: 79 INTERPRETIVE STATEMENTS: Normal sinus rhythm Incomplete right bundle branch block ST & T wave abnormality, consider anterior ischemia Abnormal ECG Compared to ECG 12/25/2022 23:08:08 Prolonged QT interval no longer present ST (T wave) deviation still present Possible ischemia still present Electronically Signed On 01-10-23 07:45:51 CDT by Abdon Browning
[2023-01-13] MEDS ORDERED: NA CHLORIDE 0.9% 500 ML ONE (06:49)
[2023-01-13] MEDS ORDERED: HEPARIN 5000 UNIT/ML 1 ML VIAL ONE (06:57)
[2023-01-13] MEDS ORDERED: LIDOCAINE 1% 20 ML MDV ONE (06:57)
[2023-01-13] MEDS ORDERED: HEPA 1000U/500MLS 2,000 UNIT/1,000 ML BAG IV ONE (06:57)
[2023-01-13] MEDS ORDERED: MIDAZOLAM HCL 2 MG/2 ML INJ ONE (06:57)
[2023-01-13] MEDS ORDERED: CLOPIDOGREL 75 MG TABLET ONE (06:58)
[2023-01-13] MEDS ORDERED: ASPIRIN 325 MG TAB ONE (06:58)
[2023-01-13] MEDS ORDERED: HEPARIN 10,000 UNIT/10 ML VIAL IV ONE (06:58)
[2023-01-13] MEDS ORDERED: VERAPAMIL HCL 10 MG/4 ML VIAL IV ONE (06:58)
[2023-01-13] MEDS ORDERED: TICAGRELOR 90 MG TABLET PO ONE (06:59)
[2023-01-13] MEDS ORDERED: NITROGLYCERIN 100 MCG/ML SYR (for cath lab use only) IV ONE (06:59)
[2023-01-13] MEDS ORDERED: ATROPINE SULF 1 MG/10 ML SYR IV ONE (06:59)
[2023-01-13] MEDS ORDERED: FENTANYL CITR 100 MCG/2 ML ONE (07:00)
[2023-01-13] MEDS ORDERED: REGADENOSON 0.4 MG/5 ML SYR IV ONE (08:20)
[2023-01-13] MEDS ORDERED: HEPA 1000U/500MLS 1,000 UNIT/500 ML BAG IV ONE (08:33)
[2023-01-13] MEDS ORDERED: Phenylephrine HCl 10 MG/ML 1 ML VIAL ONE (08:35)
[2023-01-13 10:59] VITALS: BP 102/44; O2SAT 98
--- NOTE | 2023-01-13 22:40 | OP ---
Date of Procedure: 01/13/2023 Surgeon: VICKIE LINARES Procedures Performed: 1.Selective coronary angiogram. 2.Fractional flow reserve of mid left anterior descending moderate stenosis, was insignificant 0.82. Indication: Exertional chest pain with abnormal stress test. Access: Right radial artery 6-Ukrainian closed with TR band. Complications: None. Bleeding: Less than 20 mL. Description Of Procedure: After risks, benefits, and alternatives were explained, the patient agreed to the procedure and signed informed consent. Patient was brought to the cardiac catheterization la boratory, prepped and draped in sterile fashion. Then, I accessed right radial artery using pediatri c micropuncture kit. Placed 6-Ukrainian Slender sheath, took 5-Ukrainian [place] 4.0 catheter into the aorti c root. Over a J-wire, engaged left main and the right coronary artery, took standard views and gave systemic heparin to assure HCT level above 250 throughout the procedure. Took a 6-Ukrainian XB 3.5 lef t guide into the aortic root over a J-wire, engaged left main and took a pressure FFR wire into the a ortic root and pressures were equalized and then the wire was advanced across the area of stenosis an d FFR was measured using Lexiscan. It was 0.82. Pulling the wire back, there was no drift and the f inal angiogram was satisfactory and then removed the guide and the sheath and placed TR band with goo d hemostasis. Findings: 1.Left main is large and normal. 2.LAD: Proximal segment appears to be normal. Then, at the bifurcation of the diagonal 1, distal t o it there is 60% stenosis. FFR was negative at 0.82 and the diagonal 1 branch is large and then it bifurcates into vessels. Each one of them has proximal between 50% to 70% and then the LAD mid segme nt appears to be okay until the distal segment is focal 40% stenosis. 3.Left circumflex is very large and dominant with luminal irregularities. 4.RCA: It is nondominant circulation, but it is a rather large vessel proximal 60% and mid diffuse 60% and then patent distal stent that goes all the way to the PDA and this is the stent in PDA that h as 50% stenosis. Conclusion: Moderate coronary artery disease, specifically the mid LAD. FFR was -0.82. Plan: Aspirin, Plavix, and statin and aggressive medical management. Plan for stress test in 6 saqib hs. SR/MODL Voice ID: [id number] Report ID: [id number]
== END 2023-01-13 11:20 | disposition home or self-care (01) ==
LOC: OR 06:30 → CCL 11:20
PROVIDERS: ATTEND Internal Medicine
DX: I25.10 Atherosclerotic heart disease of native coronary artery without angina pectoris (principal); I73.9 Peripheral vascular disease, unspecified; I71.20 Thoracic aortic aneurysm, without rupture, unspecified; I10 Essential (primary) hypertension; I45.19 Other right bundle-branch block; E11.9 Type 2 diabetes mellitus without complications; E78.5 Hyperlipidemia, unspecified; Z95.5 Presence of coronary angioplasty implant and graft; Z87.891 Personal history of nicotine dependence; Z79.02 Long term (current) use of antithrombotics/antiplatelets; Z79.4 Long term (current) use of insulin; Z79.899 Other long term (current) drug therapy; Z82.49 Family history of ischemic heart disease and other diseases of the circulatory system
CPT/HCPCS: 93005; 85025; 80048; 36415; 85610; 82947; 85347; 85730; 93454; 76937; 93571; C1893; Q9967; J1644; J2785; J2001; J3010; J7040; C1769; J0461; J2250; J2370